=== PATIENT | male | born 1935 | race Caucasian/White ===

== ENCOUNTER 2017-08-31 13:17 | Observation (INO) | payer MEDICARE ==
[~2017-08-31] VITALS: Ht 172.7 cm; Wt 79.0 kg
[~2017-08-31 13:17] MED LIST: ACET325T PO; AMLO5 PO; ASPI-516 CHEW; CARB25TA9 PO; FAMO20TA2 PO; FOLI1TAB4 PO; LAMO25 PO; LIDO5DIS35 TD; LITH300C2 PO; METO25TA3 PO; MULTTAB67 PO; OLAN5TAB PO; PRAV10TA PO; SENN1TAB PO; TAMS5CAP PO; THIA100T PO
[2017-08-31 13:19] VITALS: BP 149/61; PULSE 86; RESP 14; TEMP 98; O2SAT 95
[2017-08-31] MEDS ORDERED: SODIUM CHLOR 0.9% 1000 ML INJ 1,000 ML IV SCH (13:41)
[2017-08-31 14:14] LABS: AUTOMATED NEUTROPHIL # 6.2 TH/MM3 (1.8-7.7); BASOPHIL % 0.4 % (0.0-2.0); EOSINOPHIL # 0.3 TH/MM3 (0-0.4); EOSINOPHIL % 3.1 % (0.0-4.0); HEMATOCRIT 38.6 % (39.0-51.0); HEMOGLOBIN 13.4 GM/DL (13.0-17.0); LYMPH % 18.6 % (9.0-44.0); LYMPHOCYTE # 1.6 TH/MM3 (1.0-4.8); MEAN CELL VOLUME 91.4 FL (80.0-100.0); MEAN CORPUSCULAR HEMOGLOBIN 31.7 PG (27.0-34.0); MEAN CORPUSCULAR HGB CONC 34.7 % (32.0-36.0); MEAN PLATELET VOLUME 7.5 FL (7.0-11.0); MONO % 6.2 % (0.0-8.0); MONOCYTE # 0.5 TH/MM3 (0-0.9); NEUT % 71.7 % (16.0-70.0); PLATELET COUNT 223 TH/MM3 (150-450); RED BLOOD COUNT 4.22 MIL/MM3 (4.50-5.90); RED CELL DISTRIBUTION WIDTH 12.5 % (11.6-17.2); WHITE BLOOD COUNT 8.7 TH/MM3 (4.0-11.0)
[2017-08-31 14:35] LABS: ALBUMIN 3.9 GM/DL (3.4-5.0); ALT (GPT) 23 U/L (12-78); AST (GOT) 9 U/L (15-37); BICARBONATE 25.4 MEQ/L (21.0-32.0); BLOOD UREA NITROGEN 32 MG/DL (7-18); CALCIUM 9.3 MG/DL (8.5-10.1); CHLORIDE 107 MEQ/L (98-107); CREATININE 2.19 MG/DL (0.60-1.30); GLOMERULAR FILTRATION RATE 29 ML/MIN (>89); GLUCOSE,RANDOM 119 MG/DL (74-106); LIPASE 240 U/L (73-393); SODIUM (NA) 138 MEQ/L (136-145)
[2017-08-31 14:38] LABS: ALKALINE PHOSPHATASE 62 U/L (45-117); TOTAL BILIRUBIN ADULT 0.5 MG/DL (0.2-1.0); TOTAL PROTEIN 7.7 GM/DL (6.4-8.2)
[2017-08-31] MEDS ORDERED: TRAZ50TA12 PO (14:39)
[2017-08-31] MEDS ORDERED: VALS1TAB70 PO (14:39)
[2017-08-31] MEDS ORDERED: OXYB5TAB8 PO (14:39)
[2017-08-31] MEDS ORDERED: MIRA50TA PO (14:39)
[2017-08-31] MEDS ORDERED: SODIUM CHLOR 0.9% 1000 ML INJ 1,000 ML IV ONE ×2 (14:45→16:45)
--- NOTE | 2017-08-31 14:59 | PD ---
HPI Chief Complaint: GI Complaint Time Seen by Provider: 13:32 Travel History International Travel<30 days: No Contact w/Intl Traveler<30days: No Traveled to known affect area: No History of Present Illness HPI 81-year-old male that presents to the ED for evaluation of diarrhea and tremors. Per patient she's had diarrhea and tremors Road 3 weeks now. Per patient nothing symptomatic for better. Per patient the diarrhea is liquidy and per patient he feels like every time he takes something it comes right up. Per patient he has had no nausea or vomiting. Some abdominal cramping when she has the diarrhea. Denies any blood. No changes in the stool coloration. No black stools. Takes no blood thinners. He does have a history of has head injury and a history of bipolar disease. Per patient his been having tremors though been worsening for the past 3 weeks. 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 When asked about this he does not seem to be aware of this. He states that the tremors are worse in the past couple days but he has had no head injuries. No other neurological deficits. No numbness, tingling, weakness. Per patient he dropped a cup which is what concerned him. He states that he was put on a new blood pressure medication that his kidney doctor but he cannot tell me what it is. Allergies to bupropion, chlorpromazine and clopidogrel. PFSH Past Medical History Arthritis: Yes Asthma: No Autoimmune Disease: No Blood Disorders: No Anxiety: No Depression: Yes Heart Rhythm Problems: No Cancer: No Cardiac Catheterization: Yes Cardiovascular Problems: Yes High Cholesterol: No Chemotherapy: No Chest Pain: No Congestive Heart Failure: No COPD: No Cerebrovascular Accident: No Diabetes: No Endocrine: No GERD: No Glaucoma: No Genitourinary: No Headaches: No Hiatal Hernia: No Hypertension: Yes Immune Disorder: No Kidney Stones: No Musculoskeletal: No Neurologic: Yes (memory, tremors) Psychiatric: Yes Reproductive: No Respiratory: No Migraines: No Myocardial Infarction: No Radiation Therapy: No Renal Failure: No Seizures: No Sickle Cell Disease: No Sleep Apnea: No Thyroid Disease: No Ulcer: No Influenza Vaccination: Yes LMP: na Past Surgical History Abdominal Surgery: No AICD: No Arteriovenous Shunt: No Cardiac Surgery: Yes (stents) Coronary Stent: Yes Ear Surgery: No Endocrine Surgery: No Eye Surgery: No Genitourinary Surgery: No Gynecologic Surgery: No Insulin Pump: No Joint Replacement: No Oral Surgery: No Pacemaker: No Thoracic Surgery: No Other Surgery: Yes (testical removed) Social History Alcohol Use: No Tobacco Use: No (8 CIGARETTES A DAY/ QUITTING) Substance Use: No Allergies-Medications (Allergen,Severity, Reaction): Coded Allergies: bupropion (Unverified Allergy, Severe, RASH, ITCHING, 08/31/17) chlorpromazine (Unverified Allergy, Severe, Rash, 08/31/17) clopidogrel (Verified Allergy, Unknown, 08/31/17) Reported Meds & Prescriptions Reported Meds & Active Scripts Active Flomax (Tamsulosin HCl) 0.4 Mg Cap 0.4 Mg PO DAILY Pravastatin 10 Mg Tab 1 Tab PO HS Multiple Vitamin 1 Tab 1 Tab PO DAILY [place] Carbonate 300 Mg Cap 300 Mg PO TID Aspirin 81 Mg Chew 81 Mg CHEW DAILY Reported Ditropan (Oxybutynin Chloride) 5 Mg Tab 5 Mg PO HS Myrbetriq (Mirabegron) 50 Mg Tab 50 Mg PO DAILY Valsartan 320 Mg Tab 320 Mg PO HS Trazodone (Trazodone HCl) 50 Mg Tab 100 Mg PO HS Review of Systems Except as stated in HPI: all other systems reviewed are Neg Physical Exam Narrative GENERAL: SKIN: Warm and dry. HEAD: Atraumatic. Normocephalic. EYES: Pupils equal and round. No scleral icterus. No injection or drainage. ENT: No nasal bleeding or discharge. Mucous membranes pink and moist. Tongue is midline. No uvula deviation. NECK: Trachea midline. No JVD. CARDIOVASCULAR: Regular rate and rhythm. No murmurs, S3, S4. RESPIRATORY: No accessory muscle use. Clear to auscultation. Breath sounds equal bilaterally. GASTROINTESTINAL: Abdomen soft, non-tender, nondistended. Hepatic and splenic margins not palpable. MUSCULOSKELETAL: Extremities without clubbing, cyanosis, or edema. No obvious deformities. Full range of motion of the upper and lower extremities bilaterally. 2+ pulses bilaterally. NEUROLOGICAL: Awake and alert. No obvious cranial nerve deficits. Motor grossly within normal limits. Five out of 5 muscle strength in the arms and legs. Normal speech. Mild tremor noted when patient raises his arms on the right compared to the left. PSYCHIATRIC: Appropriate mood and affect; insight and judgment normal. Data Data Last Documented VS Vital Signs Date Time Temp Pulse Resp B/P (MAP) Pulse Ox O2 Delivery O2 Flow Rate FiO2 08/31/17 17:06 68 18 138/72 (94) 98 Room Air 08/31/17 13:19 98.0 Orders Orders Complete Blood Count With Diff (08/31/17 13:41) Comprehensive Metabolic Panel (08/31/17 13:41) Lipase (08/31/17 13:41) Lactic Acid (08/31/17 13:41) Urinalysis - C+S If Indicated (08/31/17 13:41) Iv Access Insert/Monitor (08/31/17 13:41) Ecg Monitoring (08/31/17 13:41) Oximetry (08/31/17 13:41) Sodium Chlor 0.9% 1000 Ml Inj (Ns 1000 M (08/31/17 13:41) C Diff Toxin Pcr (08/31/17 14:19) Sodium Chlor 0.9% 1000 Ml Inj (Ns 1000 M (08/31/17 14:45) Sabin (Li) (08/31/17 14:42) Ct Abd/Pel W/O Iv Contrast (08/31/17 ) Sodium Chlor 0.9% 1000 Ml Inj (Ns 1000 M (08/31/17 16:45) Admit Order (Ed Use Only) (08/31/17 17:17) Thyroid Stimulating Hormone (08/31/17 17:18) Consult Nephrology (08/31/17 ) Labs Laboratory Tests Test 08/31/17 13:45 08/31/17 14:45 08/31/17 15:00 08/31/17 15:05 White Blood Count 8.7 TH/MM3 Red Blood Count 4.22 MIL/MM3 Hemoglobin 13.4 GM/DL Hematocrit 38.6 % Mean Corpuscular Volume 91.4 FL Mean Corpuscular Hemoglobin 31.7 PG Mean Corpuscular Hemoglobin Concent 34.7 % Red Cell Distribution Width 12.5 % Platelet Count 223 TH/MM3 Mean Platelet Volume 7.5 FL Neutrophils (%) (Auto) 71.7 % Lymphocytes (%) (Auto) 18.6 % Monocytes (%) (Auto) 6.2 % Eosinophils (%) (Auto) 3.1 % Basophils (%) (Auto) 0.4 % Neutrophils # (Auto) 6.2 TH/MM3 Lymphocytes # (Auto) 1.6 TH/MM3 Monocytes # (Auto) 0.5 TH/MM3 Eosinophils # (Auto) 0.3 TH/MM3 Basophils # (Auto) 0.0 TH/MM3 CBC Comment DIFF FINAL Differential Comment Blood Urea Nitrogen 32 MG/DL Creatinine 2.19 MG/DL Random Glucose 119 MG/DL Total Protein 7.7 GM/DL Albumin 3.9 GM/DL Calcium Level 9.3 MG/DL Alkaline Phosphatase 62 U/L Aspartate Amino Transf (AST/SGOT) 9 U/L Alanine Aminotransferase (ALT/SGPT) 23 U/L Total Bilirubin 0.5 MG/DL Sodium Level 138 MEQ/L Potassium Level 4.2 MEQ/L Chloride Level 107 MEQ/L Carbon Dioxide Level 25.4 MEQ/L Anion Gap 6 MEQ/L Estimat Glomerular Filtration Rate 29 ML/MIN Lipase 240 U/L Urine Color LIGHT-YELLOW Urine Turbidity CLEAR Urine pH 6.5 Urine Specific [place] 1.004 Urine Protein NEG mg/dL Urine Glucose (UA) NEG mg/dL Urine Ketones NEG mg/dL Urine Occult Blood NEG Urine Nitrite NEG Urine Bilirubin NEG Urine Urobilinogen LESS THAN 2.0 MG/DL Urine Leukocyte Esterase NEG Urine WBC 2 /hpf Microscopic Urinalysis Comment CULT NOT INDICATED [place] Level 1.8 MEQ/L MDM Medical Decision Making Medical Screen Exam Complete: Yes Emergency Medical Condition: Yes Medical Record Reviewed: Yes Interpretation(s) CBC & BMP Diagram 08/31/17 13:45 Total Protein 7.7, Albumin 3.9, Calcium Level 9.3, Alkaline Phosphatase 62, Aspartate Amino Transf (AST/SGOT) 9 L, Alanine Aminotransferase (ALT/SGPT) 23, Total Bilirubin 0.5 Last Impressions Abdomen/Pelvis CT 08/31/17 0000 Signed Impressions: Service Date/Time: Thursday, August 31, 2017 15:39 - CONCLUSION: 1. No evidence of acute abdominal or pelvic process. No masses are identified. 2. Cholelithiasis 3. Diverticulosis without evidence of diverticulitis. 1. Franc Gomez MD lithium level of 1.8 Differential Diagnosis Diarrhea versus electrolyte abnormality versus kidney injury versus dehydration versus medication side effect versus Parkinson's disease versus tremor Narrative Course 81-year-old male that presents to the ED for evaluation of diarrhea as well as tremor. Patient was properly examined and was found to have signs and symptoms of unclear etiology. Patient does tell me that he started new medication 3 weeks ago and is on the symptoms started. Diarrhea started first and tremor per patient started afterwards. The review the patient's medical records from or facility and he has had the tremor in the past. Patient apparently does take a lot of psychiatric medications secondary to his bipolar disorder and at the time the time he might have some early Parkinson's. Continue to take carbidopa levodopa. He is not aware he's ever been diagnosed with heart disease. Unclear if this is new or old. Patient is somewhat of a not a good historian he is able to move new medication he was put on. At this time we'll do labs and imaging. Patient was given IV fluids. We had the pharmacy technologist evaluated the patient to see if they can find no what the new medication is. Labs and imaging showed what appears to be elevated lithium level with what appears to be acute kidney injury likely from dehydration from the diarrhea. This was discussed in my attending Dr. Lane who was made aware of findings recommends consultation with slurry control operator helper and admission to medicine. Case was discussed with Dr. Plummer who says that for now hydration and will monitor. Does not recommend dialysis at this time. Dr. Young agreed to admission for FOR evaluation of this. I discussed the results with the patient and he completely denies doing suicidal attempt by taking lithium. Per patient his been taking the normal dose that he's had for 4 years. He was told however by that he may need to stop it secondary to his kidney function. He has not changed it since as he has not seen the psychiatrist to see what they can change it to. Again he denies any suicidal attempt. This appears to be accidental. Likely from dehydration from the diarrhea patient has been having for 3 weeks. Diagnosis Primary Impression: [place] toxicity Qualified Codes: T56.891A - Toxic effect of other metals, accidental ( unintentional), initial encounter Additional Impressions: Acute kidney injury Acute diarrhea Admitting Information Admitting Physician Requests: Observation Efrain Earl Aug 31, 2017 14:59
[2017-08-31 15:32] LABS: BILIRUBIN, URINE NEG (NEG); BLOOD, URINE NEG (NEG); GLUCOSE,URINE NEG (NEG); KETONE, URINE NEG (NEG); NITRITE,URINE NEG (NEG); PH, URINE 6.5 (5.0-8.5); URINE COLOR LIGHT-YELLOW (YELLW/STRAW); URINE LEUKOCYTE ESTERASE NEG (NEG)
--- NOTE | 2017-08-31 16:29 | RADRPT ---
EXAM DATE/TIME: 08/31/2017 15:39 [facility] COMPARISON: No previous studies available for comparison. INDICATIONS : Diarrhea, frequent urination. ORAL CONTRAST: No oral contrast ingested. RADIATION DOSE: 8.39 CTDIvol (mGy) MEDICAL HISTORY : Cardiovascular disease. Hypertension. SURGICAL HISTORY : None. ENCOUNTER: Initial ACUITY: 3 weeks PAIN SCALE: 2/10 LOCATION: Bilateral anterior TECHNIQUE: Volumetric scanning of the abdomen and pelvis was performed. Using automated exposure control and ad justment of the mA and/or kV according to patient size, radiation dose was kept as low as reasonably achievable to obtain optimal diagnostic quality images. DICOM format image data is available electro nically for review and comparison. FINDINGS: Examination of the lung bases demonstrates no abnormality. No pleural fluid is identified. No pulmona ry nodules are present. Coronary artery calcifications are present. The liver and spleen are normal i n size and no focal defects are identified. There is a single stone within the gallbladder without wa ll thickening or pericholecystic fluid measuring 2 mm. The pancreas demonstrates no evidence of mass and there is no dilatation of the pancreatic duct. The adrenal glands are unremarkable. There are sim ple cysts bilaterally the largest measuring 2 cm on the left. Examination of the pelvis demonstrates no evidence of free fluid or pelvic mass. No abnormally enlarg ed inguinal or retroperitoneal lymph nodes are present. The bladder is unremarkable. There is diverti culosis without evidence of diverticulitis. The prostate gland is moderately enlarged impinging on th e bladder base. CONCLUSION: 1. No evidence of acute abdominal or pelvic process. No masses are identified. 2. Cholelithiasis 3. Diverticulosis without evidence of diverticulitis. 1. Franc Gomez MD on August 31, 2017 at 16:24 Board Certified Radiologist. This report was verified electronically.
[2017-08-31 17:06] VITALS: BP 138/72; PULSE 57; PULSE 68; RESP 18; O2SAT 98
[2017-08-31] MEDS ORDERED: NALOXONE HCL 0.4 MG/ML AMP IV PUSH PRN (17:30)
[2017-08-31] MEDS ORDERED: ONDANSETRON HCL 4 MG/2 ML VIAL IVP PRN (17:30)
[2017-08-31] MEDS ORDERED: MAGNESIUM HYDROXIDE SUSP 30 ML CUP PO PRN (17:30)
[2017-08-31] MEDS ORDERED: SODIUM CHLORIDE 0.9% FLUSH 10 ML FLUSH IV FLUSH PRN (17:30)
[2017-08-31] MEDS ORDERED: LACTULOSE SYRUP 20 GM/30 ML CUP PO PRN (17:30)
[2017-08-31] MEDS ORDERED: SENNOSIDES 8.6 MG TAB PO PRN (17:30)
[2017-08-31] MEDS ORDERED: BISACODYL 10 MG SUPP RECTAL PRN (17:30)
[2017-08-31] MEDS ORDERED: ACETAMINOPHEN 325 MG TAB PO PRN (17:30)
--- NOTE | 2017-08-31 17:32 | PD.CONS ---
HPI Service Nephrology Consult Requested By Dr. Young Reason for Consult Review his emergency with lithium toxicity Primary Care Physician Parveen Kerr MD History of Present Illness Patient is a 81-year-old white male with history of bipolar disorder on lithium for past 40 years, he was seen by Dr. DIETZ who told him to get off lithium due to renal insufficiency however he has been on the same dose of lithium he states that he takes 300 mg 3 times a day, he developed diarrhea and increased tremors for the past few days and came to the emergency as he was feeling weak and tired, he was noted to have a lithium level of 1.8 he was given hydration his creatinine is 2.19 Review of Systems Constitutional: COMPLAINS OF: Fatigue Gastrointestinal: COMPLAINS OF: Diarrhea Neurologic: COMPLAINS OF: Tremor Psychiatric: COMPLAINS OF: Anxiety, Depression Past Family Social History Allergies: Coded Allergies: bupropion (Unverified Allergy, Severe, RASH, ITCHING, 08/31/17) chlorpromazine (Unverified Allergy, Severe, Rash, 08/31/17) clopidogrel (Verified Allergy, Unknown, 08/31/17) Past Medical History Chronic kidney disease Bipolar disorder on lithium Coronary artery disease status post stent History of smoking Hyperlipidemia Cataract Past Surgical History Coronary artery stent Testicle removed Reported Medications Reported Meds & Active Scripts Active Flomax (Tamsulosin HCl) 0.4 Mg Cap 0.4 Mg PO DAILY Pravastatin 10 Mg Tab 1 Tab PO HS Multiple Vitamin 1 Tab 1 Tab PO DAILY [place] Carbonate 300 Mg Cap 300 Mg PO TID Aspirin 81 Mg Chew 81 Mg CHEW DAILY Reported Ditropan (Oxybutynin Chloride) 5 Mg Tab 5 Mg PO HS Myrbetriq (Mirabegron) 50 Mg Tab 50 Mg PO DAILY Valsartan 320 Mg Tab 320 Mg PO HS Trazodone (Trazodone HCl) 50 Mg Tab 100 Mg PO HS Active Ordered Medications Current Medications Medications (Trade) Dose Ordered Sig/Lavinia Route Start Time Stop Time Status Last Admin (Aspirin Chew) 81 mg DAILY CHEW 09/01/17 09:00 (Ditropan) 5 mg HS PO 08/31/17 21:00 (Pravachol) 10 mg HS PO 08/31/17 21:00 (Flomax) 0.4 mg DAILY PO 09/01/17 09:00 (Desyrel) 100 mg HS PO 08/31/17 21:00 UNV (Diovan) 320 mg HS PO 08/31/17 21:00 UNV Non-Formulary Medication 50 mg DAILY PO 09/01/17 09:00 UNV Sodium Chloride 1,000 ml @ 100 mls/hr Q10H IV 08/31/17 17:30 (NS Flush) 2 ml UNSCH PRN IV FLUSH 08/31/17 17:30 (NS Flush) 2 ml BID IV FLUSH 08/31/17 21:00 (Tylenol) 650 mg Q4H PRN PO 08/31/17 17:30 (Zofran Inj) 4 mg Q6H PRN IVP 08/31/17 17:30 (Heparin Inj) 5,000 units Q12H SQ 08/31/17 21:00 (Narcan Inj) 0.4 mg UNSCH PRN IV PUSH 08/31/17 17:30 ([place]-Colace) 1 tab BID PO 08/31/17 21:00 (Milk Of Magnesia Liq) 30 ml Q12H PRN PO 08/31/17 17:30 (Senokot) 17.2 mg Q12H PRN PO 08/31/17 17:30 (Dulcolax Supp) 10 mg DAILY PRN RECTAL 08/31/17 17:30 (Lactulose Liq) 30 ml DAILY PRN PO 08/31/17 17:30 Family History Noncontributory Social History He smoked up to 8 cigarettes a day Physical Exam Vital Signs Vital Signs Date Time Temp Pulse Resp B/P (MAP) Pulse Ox O2 Delivery O2 Flow Rate FiO2 08/31/17 17:06 68 18 138/72 (94) 98 Room Air 08/31/17 13:19 98.0 86 14 149/61 (90) 95 Room Air Physical Exam GENERAL: Well-nourished, well-developed patient. SKIN: Warm and dry. HEAD: Normocephalic. EYES: No scleral icterus. No injection or drainage. NECK: Supple, trachea midline. No JVD or lymphadenopathy. CARDIOVASCULAR: Regular rate and rhythm without murmurs, gallops, or rubs. RESPIRATORY: Breath sounds equal bilaterally. No accessory muscle use. GASTROINTESTINAL: Abdomen soft, non-tender, nondistended. EXTREMITIES: No cyanosis, or edema. NEUROLOGICAL: Awake, alert, and oriented x 3. Non-focal. Laboratory Laboratory Tests Test 08/31/17 13:45 08/31/17 14:45 08/31/17 15:00 08/31/17 15:05 White Blood Count 8.7 Red Blood Count 4.22 Hemoglobin 13.4 Hematocrit 38.6 Mean Corpuscular Volume 91.4 Mean Corpuscular Hemoglobin 31.7 Mean Corpuscular Hemoglobin Concent 34.7 Red Cell Distribution Width 12.5 Platelet Count 223 Mean Platelet Volume 7.5 Neutrophils (%) (Auto) 71.7 Lymphocytes (%) (Auto) 18.6 Monocytes (%) (Auto) 6.2 Eosinophils (%) (Auto) 3.1 Basophils (%) (Auto) 0.4 Neutrophils # (Auto) 6.2 Lymphocytes # (Auto) 1.6 Monocytes # (Auto) 0.5 Eosinophils # (Auto) 0.3 Basophils # (Auto) 0.0 CBC Comment DIFF FINAL Differential Comment Blood Urea Nitrogen 32 Creatinine 2.19 Random Glucose 119 Total Protein 7.7 Albumin 3.9 Calcium Level 9.3 Alkaline Phosphatase 62 Aspartate Amino Transf (AST/SGOT) 9 Alanine Aminotransferase (ALT/SGPT) 23 Total Bilirubin 0.5 Sodium Level 138 Potassium Level 4.2 Chloride Level 107 Carbon Dioxide Level 25.4 Anion Gap 6 Estimat Glomerular Filtration Rate 29 Lipase 240 Urine Color LIGHT-YELLOW Urine Turbidity CLEAR Urine pH 6.5 Urine Specific [place] 1.004 Urine Protein NEG Urine Glucose (UA) NEG Urine Ketones NEG Urine Occult Blood NEG Urine Nitrite NEG Urine Bilirubin NEG Urine Urobilinogen LESS THAN 2.0 Urine Leukocyte Esterase NEG Urine WBC 2 Microscopic Urinalysis Comment CULT NOT INDICATED [place] Level 1.8 Result Diagram: 08/31/17 1345 08/31/17 1345 Assessment and Plan Problem List: (1) [place] toxicity ICD Codes: T56.891A - Toxic effect of other metals, accidental (unintentional) , initial encounter Status: Acute Plan: This is mild toxicity and is already resolving with hydration patient is feeling better Patient has no indication for dialysis Continue supportive care I told the patient to consider switching his lithium and I agree with Dr. DIETZ recommendations (2) Acute kidney injury ICD Codes: N17.9 - Acute kidney failure, unspecified Status: Acute Plan: Patient appears to have chronic kidney disease and follows with Dr. DIETZ He was told to stop taking lithium At this point continue supportive care He is feeling better with hydration Discharge planning per primary care team Problem Qualifiers (1) [place] toxicity: Qualified Codes: T56.891A - Toxic effect of other metals, accidental ( unintentional), initial encounter Stefanie Jo MD Aug 31, 2017 17:32
--- NOTE | 2017-08-31 18:32 | HHI.HP ---
[facility] Parveen Kerr MD Admission Diagnosis acute lithium toxicity, acute kidney injury, diarrhea Diagnoses: Chief Complaint: generalized weakness, diarrhea, "shakes" Travel History International Travel<30 Days: No Contact w/Intl Traveler <30 Da: No Traveled to Known Affected Are: No History of Present Illness Written by Fatuma Slaughter, acting as scribe for Dr. Young on 08/31/17 at 18:19. Patient is a 81-year-old male with primary medical history of HTN, bipolar disorder, CAD with stents, HTN, EtOH abuse, HLD who came in to the hospital secondary to complaints of generalized weakness, increasing "shakes," diarrhea 3 weeks. Patient states that he's been having diarrhea for 3 weeks and has been generally weak. States that he has been taking his lithium as prescribed without any additional doses. Denies any intentional overdose or accidental overdose. Reports last lithium level checked was when he was at [facility] last year in May. He hasn't seen a doctor recently but follows with PCP, nephrology, [facility]. Patient states that he is very weak, having diarrhea 5 times a day. Denies nausea, vomiting. No shortness of breath, dyspnea. Denies chest pain, headaches, dizziness, palpitations. Denies any fevers, chills. Denies SI/HI. Review of Systems Except as stated in HPI: all other systems reviewed are Neg Past Family Social History Past Medical History HTN HLD BPH Bipolar disorder CAD EtOH abuse Past Surgical History Stent placements Tonsillectomy Vasectomy Reported Medications Reported Meds & Active Scripts Active Flomax (Tamsulosin HCl) 0.4 Mg Cap 0.4 Mg PO DAILY Pravastatin 10 Mg Tab 1 Tab PO HS Multiple Vitamin 1 Tab 1 Tab PO DAILY [place] Carbonate 300 Mg Cap 300 Mg PO TID Aspirin 81 Mg Chew 81 Mg CHEW DAILY Reported Ditropan (Oxybutynin Chloride) 5 Mg Tab 5 Mg PO HS Myrbetriq (Mirabegron) 50 Mg Tab 50 Mg PO DAILY Valsartan 320 Mg Tab 320 Mg PO HS Trazodone (Trazodone HCl) 50 Mg Tab 100 Mg PO HS Allergies: Coded Allergies: bupropion (Unverified Allergy, Severe, RASH, ITCHING, 08/31/17) chlorpromazine (Unverified Allergy, Severe, Rash, 08/31/17) clopidogrel (Verified Allergy, Unknown, 08/31/17) Active Ordered Medications Current Medications Medications (Trade) Dose Ordered Sig/Lavinia Route Start Time Stop Time Status Last Admin (Aspirin Chew) 81 mg DAILY CHEW 09/01/17 09:00 (Ditropan) 5 mg HS PO 08/31/17 21:00 (Pravachol) 10 mg HS PO 08/31/17 21:00 (Flomax) 0.4 mg DAILY PO 09/01/17 09:00 (Desyrel) 100 mg HS PO 08/31/17 21:00 (Diovan) 320 mg HS PO 08/31/17 21:00 Patient Own Medication PT OWN MED:MYRBETRIQ 50MG DAILY PO 09/01/17 09:00 Future Hold Sodium Chloride 1,000 ml @ 100 mls/hr Q10H IV 08/31/17 17:30 (NS Flush) 2 ml UNSCH PRN IV FLUSH 08/31/17 17:30 (NS Flush) 2 ml BID IV FLUSH 08/31/17 21:00 (Tylenol) 650 mg Q4H PRN PO 08/31/17 17:30 (Zofran Inj) 4 mg Q6H PRN IVP 08/31/17 17:30 (Heparin Inj) 5,000 units Q12H SQ 08/31/17 21:00 (Narcan Inj) 0.4 mg UNSCH PRN IV PUSH 08/31/17 17:30 ([place]-Colace) 1 tab BID PO 08/31/17 21:00 (Milk Of Magnesia Liq) 30 ml Q12H PRN PO 08/31/17 17:30 (Senokot) 17.2 mg Q12H PRN PO 08/31/17 17:30 (Dulcolax Supp) 10 mg DAILY PRN RECTAL 08/31/17 17:30 (Lactulose Liq) 30 ml DAILY PRN PO 08/31/17 17:30 Family History Father has diabetes No CVA or CAD in the family Social History Denies alcohol use Former smoker, 3 pack per day 30 years, quit 1990 Denies illicit drug use Physical Exam Vital Signs Vital Signs Date Time Temp Pulse Resp B/P (MAP) Pulse Ox O2 Delivery O2 Flow Rate FiO2 08/31/17 17:06 68 18 138/72 (94) 98 Room Air 08/31/17 13:19 98.0 86 14 149/61 (90) 95 Room Air Physical Exam GENERAL: This is a well-nourished, well-developed patient, in no apparent distress. SKIN: Warm and dry. HEAD: Normocephalic. EYES: Pupils equal round and reactive. Extraocular motions intact. No scleral icterus. No injection or drainage. ENT: Nose without bleeding. Throat without erythema. Uvula midline. Airway patent. NECK: Trachea midline. No JVD or lymphadenopathy. Supple, nontender, no meningeal signs. CARDIOVASCULAR: Regular rate and rhythm without murmurs, gallops, or rubs. RESPIRATORY: Clear to auscultation. Breath sounds equal bilaterally. No wheezes , rales, or rhonchi. GASTROINTESTINAL: Abdomen soft, non-tender, nondistended. No guarding. Bowel sounds active 4. MUSCULOSKELETAL: Extremities without clubbing, cyanosis, or edema. Tremors noted. NEUROLOGICAL: Awake and alert. Cranial nerves II through XII intact. Motor and sensory grossly within normal limits. Normal speech. Laboratory Laboratory Tests Test 08/31/17 13:45 08/31/17 14:45 08/31/17 15:00 08/31/17 15:05 White Blood Count 8.7 Red Blood Count 4.22 Hemoglobin 13.4 Hematocrit 38.6 Mean Corpuscular Volume 91.4 Mean Corpuscular Hemoglobin 31.7 Mean Corpuscular Hemoglobin Concent 34.7 Red Cell Distribution Width 12.5 Platelet Count 223 Mean Platelet Volume 7.5 Neutrophils (%) (Auto) 71.7 Lymphocytes (%) (Auto) 18.6 Monocytes (%) (Auto) 6.2 Eosinophils (%) (Auto) 3.1 Basophils (%) (Auto) 0.4 Neutrophils # (Auto) 6.2 Lymphocytes # (Auto) 1.6 Monocytes # (Auto) 0.5 Eosinophils # (Auto) 0.3 Basophils # (Auto) 0.0 CBC Comment DIFF FINAL Differential Comment Blood Urea Nitrogen 32 Creatinine 2.19 Random Glucose 119 Total Protein 7.7 Albumin 3.9 Calcium Level 9.3 Alkaline Phosphatase 62 Aspartate Amino Transf (AST/SGOT) 9 Alanine Aminotransferase (ALT/SGPT) 23 Total Bilirubin 0.5 Sodium Level 138 Potassium Level 4.2 Chloride Level 107 Carbon Dioxide Level 25.4 Anion Gap 6 Estimat Glomerular Filtration Rate 29 Lipase 240 Thyroid Stimulating Hormone 3rd Gen 1.940 Urine Color LIGHT-YELLOW Urine Turbidity CLEAR Urine pH 6.5 Urine Specific [place] 1.004 Urine Protein NEG Urine Glucose (UA) NEG Urine Ketones NEG Urine Occult Blood NEG Urine Nitrite NEG Urine Bilirubin NEG Urine Urobilinogen LESS THAN 2.0 Urine Leukocyte Esterase NEG Urine WBC 2 Microscopic Urinalysis Comment CULT NOT INDICATED Orange Level 1.8 Result Diagram: 08/31/17 1345 08/31/17 1345 Imaging Last Impressions Abdomen/Pelvis CT 08/31/17 0000 Signed Impressions: Service Date/Time: Thursday, August 31, 2017 15:39 - CONCLUSION: 1. No evidence of acute abdominal or pelvic process. No masses are identified. 2. Cholelithiasis 3. Diverticulosis without evidence of diverticulitis. 1. MD Jolene Granados VTE Risk Assessment Caprini VTE Risk Assessment: Mod/High Risk (score >= 2) Caprini Risk Assessment Model Point Value = 1 Point Value = 2 Point Value = 3 Point Value = 5 Age 41-60 Minor surgery BMI > 25 kg/m2 Swollen legs Varicose veins or History of unexplained or recurrent spontaneous Oral contraceptives or hormone replacement Sepsis (< 1 month) Serious lung disease, including pneumonia (< 1 month) Abnormal pulmonary function Acute myocardial infarction Congestive heart failure (< 1 month) History of inflammatory bowel disease Medical patient at bed rest Age 61-74 Arthroscopic surgery Major open surgery (> 45 min) Laparoscopic surgery (> 45 min) Malignancy Confined to bed (> 72 hours) Immobilizing plaster cast Central venous access Age >= 75 History of VTE Family history of VTE Factor V Leiden Prothrombin [id number] Lupus anticoagulant Anticardiolipin antibodies Elevated serum homocysteine Heparin-induced thrombocytopenia Other congenital or acquired thrombophilia Stroke (< 1 month) Elective arthroplasty Hip, pelvis, or leg fracture Acute spinal cord injury (< 1 month) Prophylaxis Regimen Total Risk Factor Score Risk Level Prophylaxis Regimen 0-1 Low Early ambulation 2 Moderate Order ONE of the following: *Sequential Compression Device (SCD) *Heparin 5000 units SQ BID 3-4 Higher Order ONE of the following medications: *Heparin 5000 units SQ TID *Enoxaparin/Lovenox 40 mg SQ daily (WT < 150 kg, CrCl > 30 mL/min) *Enoxaparin/Lovenox 30 mg SQ daily (WT < 150 kg, CrCl > 10-29 mL/min) *Enoxaparin/Lovenox 30 mg SQ BID (WT < 150 kg, CrCl > 30 mL/min) AND/OR *Sequential Compression Device (SCD) 5 or more Highest Order ONE of the following medications: *Heparin 5000 units SQ TID (Preferred with Epidurals) *Enoxaparin/Lovenox 40 mg SQ daily (WT < 150 kg, CrCl > 30 mL/min) *Enoxaparin/Lovenox 30 mg SQ daily (WT < 150 kg, CrCl > 10-29 mL/min) *Enoxaparin/Lovenox 30 mg SQ BID (WT < 150 kg, CrCl > 30 mL/min) AND *Sequential Compression Device (SCD) Assessment and Plan Problem List: (1) [place] toxicity ICD Code: T56.891A - Toxic effect of other metals, accidental (unintentional), initial encounter Status: Acute (2) Acute kidney injury ICD Code: N17.9 - Acute kidney failure, unspecified Status: Acute (3) Acute diarrhea ICD Code: R19.7 - Diarrhea, unspecified Status: Acute (4) Depression ICD Code: F32.9 - Major depressive disorder, single episode, unspecified Status: Chronic (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 Status: Acute (6) Bipolar disorder ICD Code: F31.9 - Bipolar disorder, unspecified Status: Chronic (7) Hyperlipemia ICD Code: E78.5 - Hyperlipidemia, unspecified Status: Chronic (8) Hypertension ICD Code: I10 - Essential (primary) hypertension Status: Chronic (9) Coronary artery disease ICD Code: I25.10 - Atherosclerotic heart disease of [place] coronary artery without angina pectoris Status: Chronic Assessment and Plan Patient is a 81-year-old male with primary medical history of HTN, bipolar disorder, CAD with stents, HTN, EtOH abuse, HLD who came in to the hospital secondary to complaints of generalized weakness, increasing "shakes," diarrhea 3 weeks. Orange toxicity - Orange level 1.8 - Hold off lithium for now - Recheck levels - Scheduled with patient's signs and symptoms of lithium toxicity. Acute kidney injury - Secondary to diarrhea, lithium toxicity - IV fluids for hydration - Avoid nephrotoxins - Nephrology consulted for further evaluation and recommendation. Acute diarrhea - Possibly related to lithium toxicity - Monitor electrolytes. Check stool for C. difficile. Bipolar disorder Depression - Will consult psychiatry - Hold off lithium for now - Continue trazodone for now HTN, hx HLD History of CAD - Continue home medication ASA 81 mg, pravastatin 10 mg daily, valsartan 320 mg - Monitor BP trend BPH Overactive bladder - Continue Flomax, Ditropan DVT prop heparin This note was transcribed by RAJAN Salazar. I, Dr. Nehal Young personally performed the history, physical exam, and medical decision making; and confirmed the accuracy of the information in the transcribed note. Authenticated by Dr. Nehal Young on 08/31/17 at 18:19. Code Status Full code Discussed Condition With Patient, sons, nursing, ED attending Physician Certification 2 Midnight Certification Type: Admission for Inpatient Services Order for Inpatient Services The services are ordered in accordance with Medicare regulations or non- Medicare payer requirements, as applicable. In the case of services not specified as inpatient-only, they are appropriately provided as inpatient services in accordance with the 2-midnight benchmark. Estimated LOS (days): 2 days is the estimated time the patient will need to remain in the hospital, assuming treatment plan goals are met and no additional complications. Post-Hospital Plan: Home Problem Qualifiers (1) [place] toxicity: Qualified Codes: T56.891A - Toxic effect of other metals, accidental ( unintentional), initial encounter Fatuma Roldan Aug 31, 2017 18:32 Nehal Young MD Aug 31, 2017 19:40
[2017-08-31 20:20] VITALS: BP 134/64; PULSE 59; RESP 20; TEMP 96.6; O2SAT 98
[2017-08-31] MEDS: DOCUSATE SODIUM 50 MG/SENNA 8.6 MG TAB PO SCH (20:59)
[2017-08-31] MEDS ORDERED: traZODone HCL 100 MG TAB PO SCH (21:00)
[2017-08-31] MEDS ORDERED: OXYBUTYNIN CHLORIDE 5 MG TAB PO SCH (21:00)
[2017-08-31] MEDS ORDERED: SODIUM CHLORIDE 0.9% FLUSH 10 ML FLUSH IV FLUSH SCH (21:00)
[2017-08-31] MEDS ORDERED: VALSARTAN 160 MG TAB PO SCH (21:00)
[2017-08-31] MEDS: HEPARIN SODIUM - SQ 10,000 UNITS/ML VIAL SQ SCH (21:00)
[2017-08-31] MEDS ORDERED: PRAVASTATIN SOD 10 MG TAB PO SCH (21:00)
[2017-08-31] MEDS: SODIUM CHLOR 0.9% 1000 ML INJ 1,000 ML IV SCH (21:01)
[2017-08-31 21:41] VITALS: O2SAT 97
[2017-08-31 22:22] LABS: ALBUMIN 3.6 GM/DL (3.4-5.0); ALT (GPT) 19 U/L (12-78); AST (GOT) 9 U/L (15-37); BICARBONATE 28.1 MEQ/L (21.0-32.0); BLOOD UREA NITROGEN 25 MG/DL (7-18); CHLORIDE 113 MEQ/L (98-107); CREATININE 1.81 MG/DL (0.60-1.30); GLOMERULAR FILTRATION RATE 36 ML/MIN (>89); GLUCOSE,RANDOM 101 MG/DL (74-106); SODIUM (NA) 144 MEQ/L (136-145)
[2017-08-31 22:25] LABS: ALKALINE PHOSPHATASE 56 U/L (45-117); TOTAL BILIRUBIN ADULT 0.5 MG/DL (0.2-1.0); TOTAL PROTEIN 6.7 GM/DL (6.4-8.2)
[2017-09-01 00:11] VITALS: BP 134/60; PULSE 54; RESP 20; TEMP 97.8; O2SAT 99
[2017-09-01] MEDS: SODIUM CHLOR 0.9% 1000 ML INJ 1,000 ML IV SCH (03:30)
[2017-09-01 05:07] VITALS: BP 138/63; PULSE 54; RESP 20; TEMP 97.9; O2SAT 98
[2017-09-01 05:55] LABS: AUTOMATED NEUTROPHIL # 5.9 TH/MM3 (1.8-7.7); BASOPHIL % 0.5 % (0.0-2.0); EOSINOPHIL # 0.3 TH/MM3 (0-0.4); EOSINOPHIL % 3.6 % (0.0-4.0); HEMATOCRIT 35.9 % (39.0-51.0); HEMOGLOBIN 12.2 GM/DL (13.0-17.0); LYMPH % 25.4 % (9.0-44.0); LYMPHOCYTE # 2.3 TH/MM3 (1.0-4.8); MEAN CELL VOLUME 92.5 FL (80.0-100.0); MEAN CORPUSCULAR HEMOGLOBIN 31.5 PG (27.0-34.0); MEAN PLATELET VOLUME 7.6 FL (7.0-11.0); MONO % 6.5 % (0.0-8.0); MONOCYTE # 0.6 TH/MM3 (0-0.9); PLATELET COUNT 193 TH/MM3 (150-450); RED BLOOD COUNT 3.88 MIL/MM3 (4.50-5.90); RED CELL DISTRIBUTION WIDTH 12.8 % (11.6-17.2); WHITE BLOOD COUNT 9.2 TH/MM3 (4.0-11.0)
[2017-09-01 06:18] LABS: BICARBONATE 24.5 MEQ/L (21.0-32.0); CALCIUM 9.2 MG/DL (8.5-10.1); CREATININE 1.75 MG/DL (0.60-1.30)
[2017-09-01 08:07] VITALS: BP 120/59; PULSE 52; RESP 18; TEMP 97.4; O2SAT 98
[2017-09-01] MEDS ORDERED: ASPIRIN 81 MG CHEW TAB CHEW SCH (09:00)
[2017-09-01] MEDS ORDERED: MYRBETRIQ 50 MG PO SCH (09:00)
[2017-09-01] MEDS ORDERED: TAMSULOSIN HCL 0.4 MG CAP PO SCH (09:00)
[2017-09-01] MEDS: DOCUSATE SODIUM 50 MG/SENNA 8.6 MG TAB PO SCH (09:00)
[2017-09-01] MEDS: HEPARIN SODIUM - SQ 10,000 UNITS/ML VIAL SQ SCH (09:33)
--- NOTE | 2017-09-01 10:07 | HHI.PR ---
Subjective Remarks in no acute distress. awake, alert and oriented. no abdominal pain, nausea or vomiting. Objective Vitals Vital Signs Date Time Temp Pulse Resp B/P (MAP) Pulse Ox O2 Delivery O2 Flow Rate FiO2 09/01/17 08:07 97.4 52 18 120/59 (79) 98 09/01/17 05:07 97.9 54 20 138/63 (88) 98 09/01/17 00:11 97.8 54 20 134/60 (84) 99 08/31/17 21:41 97 08/31/17 20:20 96.6 59 20 134/64 (87) 98 08/31/17 18:35 100 08/31/17 17:06 68 18 138/72 (94) 98 Room Air 08/31/17 13:19 98.0 86 14 149/61 (90) 95 Room Air I/O 08/31/17 08/31/17 08/31/17 09/01/17 09/01/17 09/01/17 07:00 15:00 23:00 07:00 15:00 23:00 Intake Total 3000 ml Balance 3000 ml Intake IV Total 3000 ml # Voids 5 # Bowel Movements 1 2 Result Diagram: 09/01/17 0529 09/01/17 0529 Imaging Last Impressions Abdomen/Pelvis CT 08/31/17 0000 Signed Impressions: Service Date/Time: Thursday, August 31, 2017 15:39 - CONCLUSION: 1. No evidence of acute abdominal or pelvic process. No masses are identified. 2. Cholelithiasis 3. Diverticulosis without evidence of diverticulitis. 1. Franc Gomez MD Objective Remarks GENERAL: This is a well-nourished, well-developed patient, in no apparent distress. CARDIOVASCULAR: Regular rate and regular rhythm without murmurs, gallops, or rubs. RESPIRATORY: Clear to auscultation. Breath sounds equal bilaterally. No wheezes , rales, or rhonchi. GASTROINTESTINAL: Abdomen soft, non-tender, nondistended. Normal, active bowel sounds MUSCULOSKELETAL: Extremities without clubbing, cyanosis, or edema. NEURO: Alert & Oriented x4 to person, place, time, situation. Moves all ext x4 Medications and IVs Inpatient Medications Acetaminophen (Tylenol) 650 mg Q4H PRN PO TEMP > 100.4; Start 08/31/17 at 17:30 Aspirin (Aspirin Chew) 81 mg DAILY CHEW Last administered on 09/01/17at 09:34; Start 09/01/17 at 09:00 Bisacodyl (Dulcolax Supp) 10 mg DAILY PRN RECTAL SEVERE CONSITIPATION; Start at 17:30 Heparin Sodium (Porcine) (Heparin Inj) 5,000 units Q12H SQ Last administered on 09/01/17at 09:33; Start 08/31/17 at 21:00 Lactulose (Lactulose Liq) 30 ml DAILY PRN PO SEVERE CONSITIPATION; Start at 17:30 Magnesium Hydroxide (Milk Of Magnesia Liq) 30 ml Q12H PRN PO Mild constipation ; Start 08/31/17 at 17:30 Naloxone HCl (Narcan Inj) 0.4 mg UNSCH PRN IV PUSH SEE LABEL COMMENTS; Start at 17:30 Ondansetron HCl (Zofran Inj) 4 mg Q6H PRN IVP NAUSEA OR VOMITING; Start at 17:30 Oxybutynin Chloride (Ditropan) 5 mg HS PO Last administered on 08/31/17at 21:00; Start 08/31/17 at 21:00 Patient Own Medication PT OWN MED:MYRBETRIQ 50MG DAILY PO ; Start 09/01/17 at 09: 00; Status Future Hold Pravastatin Sodium (Pravachol) 10 mg HS PO Last administered on 08/31/17at 20:59 ; Start 08/31/17 at 21:00 Senna/Docusate Sodium ([place]-Colace) 1 tab BID PO Last administered on 08/31/17at 20:59; Start 08/31/17 at 21:00 Sennosides (Senokot) 17.2 mg Q12H PRN PO Moderate constipation; Start 08/31/17 at 17:30 Sodium Chloride (NS Flush) 2 ml BID IV FLUSH Last administered on 08/31/17at 21: 00; Start 08/31/17 at 21:00 Tamsulosin HCl (Flomax) 0.4 mg DAILY PO Last administered on 09/01/17at 09:32; Start 09/01/17 at 09:00 Trazodone HCl (Desyrel) 100 mg HS PO Last administered on 08/31/17at 20:59; Start 08/31/17 at 21:00 Valsartan (Diovan) 320 mg HS PO Last administered on 08/31/17at 20:59; Start 08/31 at 21:00 A/P Problem List: (1) [place] toxicity ICD Code: T56.891A - Toxic effect of other metals, accidental (unintentional), initial encounter Status: Acute (2) Acute kidney injury ICD Code: N17.9 - Acute kidney failure, unspecified Status: Acute (3) Acute diarrhea ICD Code: R19.7 - Diarrhea, unspecified Status: Acute (4) Depression ICD Code: F32.9 - Major depressive disorder, single episode, unspecified Status: Chronic (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 - Hold off lithium for now -advised to have a f/u with his psychiatrist. Acute kidney injury- improved. - Secondary to diarrhea, lithium toxicity - Avoid nephrotoxins - Nephrology consult appreciated. Acute diarrhea- resolved. - Possibly related to lithium toxicity Bipolar disorder Depression - Hold off lithium for now - Continue trazodone for now -psychiatry f/u as outpatient. HTN, hx HLD History of CAD - Continue home medication ASA 81 mg, pravastatin 10 mg daily, valsartan 320 mg - Monitor BP trend BPH Overactive bladder - Continue Flomax, Ditropan DVT prop heparin Discharge Planning dc home today with f/u with his pcp and psychiatry. f/u with his nephrology. Problem Qualifiers (1) [place] toxicity: Qualified Codes: T56.891A - Toxic effect of other metals, accidental ( unintentional), initial encounter James Sen MD Sep 01, 2017 10:07
[2017-09-01] MEDS ORDERED: LITH300C2 PO (10:42)
--- NOTE | 2017-09-01 10:43 | HHI.DCPOC ---
Discharge Care Plan Diagnosis: (1) [place] toxicity (2) Acute kidney injury (3) Acute diarrhea Goals to Promote Your Health * To prevent worsening of your condition and complications * To maintain your health at the optimal level Directions to Meet Your Goals PLEASE DO NOT RESUME TAKING LITHIUM MEDICATION UNTIL YOU ARE EVALUATED BY YOUR NEUROLOGIST Take your medications as prescribed Follow your dietary instruction Follow activity as directed Keep your appointments as scheduled Take your immunizations and boosters as scheduled If your symptoms worsen call your PCP, if no PCP go to Urgent Care Center or Emergency Room Smoking is Dangerous to Your Health. Avoid second hand smoke Call the 24-hour hour crisis hotline for domestic abuse at Marley Baldwin Sep 01, 2017 10:43
== END 2017-09-01 12:52 | disposition home or self-care (01) ==
LOC: NEPC 13:17 → NEDA 17:19 → NEPGCP 18:45
PROVIDERS: ADMIT Internal Medicine; ATTEND Internal Medicine
DX: T56.891A Toxic effect of other metals, accidental (unintentional), initial encounter (principal); N17.9 Acute kidney failure, unspecified; R19.7 Diarrhea, unspecified; N18.9 Chronic kidney disease, unspecified; I12.9 Hypertensive chronic kidney disease with stage 1 through stage 4 chronic kidney disease, or unspecified chronic kidney disease; F31.9 Bipolar disorder, unspecified; I25.10 Atherosclerotic heart disease of native coronary artery without angina pectoris; Z95.5 Presence of coronary angioplasty implant and graft; E78.5 Hyperlipidemia, unspecified; Z79.899 Other long term (current) drug therapy; F17.210 Nicotine dependence, cigarettes, uncomplicated; F10.10 Alcohol abuse, uncomplicated; N40.0 Benign prostatic hyperplasia without lower urinary tract symptoms; G21.19 Other drug induced secondary parkinsonism; N32.81 Overactive bladder; K57.90 Diverticulosis of intestine, part unspecified, without perforation or abscess without bleeding; E86.0 Dehydration
CPT/HCPCS: 74176; 80048; 80053; 80178; 81001; 83605; 83690; 84443; 85025; 87493; 96360; 96361; 96372; 97163; 99285; G0378; G8987; G8988; J1644; J7030

== ENCOUNTER 2017-09-19 12:51 | Inpatient (IN) | payer MEDICARE ==
[~2017-09-19] VITALS: Ht 172.7 cm; Wt 71.4 kg
[~2017-09-19 12:51] MED LIST changes: -ACET325T PO; -AMLO5 PO; -CARB25TA9 PO; -FAMO20TA2 PO; -FOLI1TAB4 PO; -LAMO25 PO; -LIDO5DIS35 TD; -METO25TA3 PO; +MIRA50TA PO; -OLAN5TAB PO; +OXYB5TAB8 PO; -SENN1TAB PO; -THIA100T PO; +TRAZ50TA12 PO; +VALS1TAB70 PO
[2017-09-19 13:17] VITALS: BP 94/48; PULSE 56; RESP 20; TEMP 97.8; O2SAT 97
--- NOTE | 2017-09-19 14:01 | PD ---
HPI Chief Complaint: Dizziness Time Seen by Provider: 13:07 Travel History International Travel<30 days: No Contact w/Intl Traveler<30days: No Traveled to known affect area: No History of Present Illness HPI This is a 81-year-old male with a history of bipolar disease, who presents today with complaints of altered mental status and weakness and ataxia. Son is at bedside states they were just at his psychiatrist's office and was told that his lithium level was toxic. They initially told the son to take him home and make sure he drink plenty of fluids and he would re-see him in the office next Saturday. Son states that his father is so weak and ataxic that he could not take him home. Son also reports that he has not been drinking enough fluid. He reports he is eating well. There are no recent medication changes. Son also reports that there was no report of which medication they would restart him on. History Past Medical History Tetanus Vaccination: < 5 Years Influenza Vaccination: Yes Social History Alcohol Use: No Tobacco Use: No (8 CIGARETTES A DAY/ QUITTING) Allergies-Medications (Allergen,Severity, Reaction): Coded Allergies: bupropion (Unverified Allergy, Severe, RASH, ITCHING, 09/19/17) chlorpromazine (Unverified Allergy, Severe, Rash, 09/19/17) clopidogrel (Verified Allergy, Unknown, 09/19/17) Reported Meds & Prescriptions Reported Meds & Active Scripts Active [place] Carbonate 300 Mg Cap 300 Mg PO TID PLEASE DO NOT RESUME LITHIUM MEDICATION UNTIL EVALUATED BY YOUR NEUROLOGIST Flomax (Tamsulosin HCl) 0.4 Mg Cap 0.4 Mg PO DAILY Pravastatin 10 Mg Tab 1 Tab PO HS Multiple Vitamin 1 Tab 1 Tab PO DAILY Aspirin 81 Mg Chew 81 Mg CHEW DAILY Reported Ditropan (Oxybutynin Chloride) 5 Mg Tab 5 Mg PO HS Myrbetriq (Mirabegron) 50 Mg Tab 50 Mg PO DAILY Valsartan 320 Mg Tab 320 Mg PO HS Trazodone (Trazodone HCl) 50 Mg Tab 100 Mg PO HS Review of Systems Except as stated in HPI: all other systems reviewed are Neg General / Constitutional: No: Fever, Chills Eyes: No: Diploplia HENT: Positive: Lightheadedness, No: Headaches, Vertigo, Neck Stiffness, Neck Pain Cardiovascular: No: Chest Pain or Discomfort, Palpitations Respiratory: No: Cough, Shortness of Breath Gastrointestinal: No: Nausea, Vomiting, Abdominal Pain Genitourinary: Positive: Decreased Urinary Output, No: Dysuria Musculoskeletal: Positive: Weakness, No: Pain Neurologic: Positive: Weakness, Other (More confused), No: Dizziness, Headache Physical Exam Narrative GENERAL: Well-nourished, well-developed patient, in no acute respiratory distress. SKIN: Focused skin assessment warm/dry. HEAD: Normocephalic/atraumatic. EYES: No scleral icterus. No injection or drainage. NECK: Supple, trachea midline. CARDIOVASCULAR: Sinus bradycardia with a rate in the high 50s. No gallops or ectopy. RESPIRATORY: Bilateral fine rhonchi. No rales. Breath sounds were equal bilaterally GASTROINTESTINAL: Abdomen soft, non-tender, nondistended. No rebound or guarding. MUSCULOSKELETAL: No cyanosis, or edema. BACK: No CVA tenderness. No rash. No point tenderness on palpation of the spine. NEUROLOGICAL: Awake and mildly confused. Cranial nerves II through XII intact. Motor and sensory grossly within normal limits. Five out of 5 muscle strength in all muscle groups. Data Data Last Documented VS Vital Signs Date Time Temp Pulse Resp B/P (MAP) Pulse Ox O2 Delivery O2 Flow Rate FiO2 09/19/17 14:57 50 16 104/51 (68) 95 Room Air 09/19/17 13:17 97.8 Orders Orders Complete Blood Count With Diff (09/19/17 14:25) Comprehensive Metabolic Panel (09/19/17 14:25) Thyroid Stimulating Hormone (09/19/17 14:25) Oximetry (09/19/17 14:25) Iv Access Insert/Monitor (09/19/17 14:25) Ecg Monitoring (09/19/17 14:25) [place] (Li) (09/19/17 14:25) Sodium Chlor 0.9% 1000 Ml Inj (Ns 1000 M (09/19/17 14:30) Admit To Inpatient (09/19/17 ) Vital Signs (Adult) Q4H (09/19/17 15:47) Neuro Checks Q4H (09/19/17 15:47) Activity Oob With Assistance (09/19/17 15:47) Intake + Output TEJAL.QSHIFT (09/19/17 15:47) Diet Heart Healthy (09/19/17 Dinner) Sodium Chlor 0.9% 1000 Ml Inj (Ns 1000 M (09/19/17 16:00) Sodium Chloride 0.9% Flush (Ns Flush) (09/19/17 16:00) Sodium Chloride 0.9% Flush (Ns Flush) (09/19/17 21:00) Ondansetron Inj (Zofran Inj) (09/19/17 16:00) Basic Metabolic Panel (Bmp) (09/20/17 06:00) Pt Request For Service (09/19/17 15:47) Scd Bilateral/Knee High TEJAL.BID (09/19/17 15:47) Naloxone Inj (Narcan Inj) (09/19/17 16:00) Docusate Sodium-Senna ([place]-Colace) (09/19/17 21:00) Magnesium Hydroxide Liq (Milk Of Magnesi (09/19/17 16:00) Sennosides (Senokot) (09/19/17 16:00) Bisacodyl Supp (Dulcolax Supp) (09/19/17 16:00) Lactulose Liq (Lactulose Liq) (09/19/17 16:00) Inpatient Certification (09/19/17 ) Admit Order (Ed Use Only) (09/19/17 15:52) Trappe (Li) (09/19/17 14:43) Labs Laboratory Tests Test 09/19/17 14:43 White Blood Count 13.1 TH/MM3 Red Blood Count 4.06 MIL/MM3 Hemoglobin 12.7 GM/DL Hematocrit 37.2 % Mean Corpuscular Volume 91.5 FL Mean Corpuscular Hemoglobin 31.3 PG Mean Corpuscular Hemoglobin Concent 34.2 % Red Cell Distribution Width 12.6 % Platelet Count 231 TH/MM3 Mean Platelet Volume 7.5 FL Neutrophils (%) (Auto) 82.5 % Lymphocytes (%) (Auto) 10.0 % Monocytes (%) (Auto) 6.0 % Eosinophils (%) (Auto) 1.2 % Basophils (%) (Auto) 0.3 % Neutrophils # (Auto) 10.8 TH/MM3 Lymphocytes # (Auto) 1.3 TH/MM3 Monocytes # (Auto) 0.8 TH/MM3 Eosinophils # (Auto) 0.2 TH/MM3 Basophils # (Auto) 0.0 TH/MM3 CBC Comment DIFF FINAL Differential Comment Blood Urea Nitrogen 69 MG/DL Creatinine 3.43 MG/DL Random Glucose 102 MG/DL Total Protein 7.4 GM/DL Albumin 3.8 GM/DL Calcium Level 9.1 MG/DL Alkaline Phosphatase 103 U/L Aspartate Amino Transf (AST/SGOT) 11 U/L Alanine Aminotransferase (ALT/SGPT) 17 U/L Total Bilirubin 0.5 MG/DL Sodium Level 134 MEQ/L Potassium Level 4.2 MEQ/L Chloride Level 107 MEQ/L Carbon Dioxide Level 22.0 MEQ/L Anion Gap 5 MEQ/L Estimat Glomerular Filtration Rate 17 ML/MIN Thyroid Stimulating Hormone 3rd Gen 0.193 uIU/ML [place] Level 2.8 MEQ/L [facility] Medical Decision Making Medical Screen Exam Complete: Yes Emergency Medical Condition: Yes Differential Diagnosis Metabolic derangement versus lithium toxicity versus dehydration Narrative Course 81-year-old male presents with his son with complaints of weakness and altered mental status. Patient was seen by psychiatrist today noted to be supratherapeutic with his lithium. The patient had previous lithium toxicity in the past. [place] level here is 2.8. The patient's BUN and creatinine are elevated his creatinine is gone up from 1.8 baseline to 3.4 baseline. He has been started on IV fluids. Patient also had a TSH sent off that was 0.19. This is obviously subtherapeutic. Given the lithium toxicity, acute on chronic renal injury, hypothyroidism, patient will be admitted as a full inpatient admission. Case was discussed with Dr. Cage, [facility], who is gracious enough to admit the patient to her service. We will hold his lithium. Diagnosis Primary Impression: [place] toxicity Additional Impressions: [id number] kidney injury Hypothyroidism Bipolar disorder Admitting Information Admitting Physician Requests: Admit Jorge A Irving MD Sep 19, 2017 14:01
[2017-09-19] MEDS ORDERED: SODIUM CHLOR 0.9% 1000 ML INJ 1,000 ML IV ONE (14:30)
[2017-09-19 14:57] VITALS: BP 104/51; PULSE 50; RESP 16; O2SAT 95
[2017-09-19 15:17] LABS: AUTOMATED NEUTROPHIL # 10.8 TH/MM3 (1.8-7.7); BASOPHIL % 0.3 % (0.0-2.0); EOSINOPHIL # 0.2 TH/MM3 (0-0.4); EOSINOPHIL % 1.2 % (0.0-4.0); HEMATOCRIT 37.2 % (39.0-51.0); HEMOGLOBIN 12.7 GM/DL (13.0-17.0); LYMPHOCYTE # 1.3 TH/MM3 (1.0-4.8); MEAN CELL VOLUME 91.5 FL (80.0-100.0); MEAN CORPUSCULAR HEMOGLOBIN 31.3 PG (27.0-34.0); MEAN CORPUSCULAR HGB CONC 34.2 % (32.0-36.0); MEAN PLATELET VOLUME 7.5 FL (7.0-11.0); MONOCYTE # 0.8 TH/MM3 (0-0.9); NEUT % 82.5 % (16.0-70.0); PLATELET COUNT 231 TH/MM3 (150-450); RED BLOOD COUNT 4.06 MIL/MM3 (4.50-5.90); RED CELL DISTRIBUTION WIDTH 12.6 % (11.6-17.2); WHITE BLOOD COUNT 13.1 TH/MM3 (4.0-11.0)
[2017-09-19 15:39] LABS: ALBUMIN 3.8 GM/DL (3.4-5.0); ALT (GPT) 17 U/L (12-78); AST (GOT) 11 U/L (15-37); BLOOD UREA NITROGEN 69 MG/DL (7-18); CALCIUM 9.1 MG/DL (8.5-10.1); CHLORIDE 107 MEQ/L (98-107); CREATININE 3.43 MG/DL (0.60-1.30); GLOMERULAR FILTRATION RATE 17 ML/MIN (>89); GLUCOSE,RANDOM 102 MG/DL (74-106); SODIUM (NA) 134 MEQ/L (136-145)
[2017-09-19 15:48] LABS: ALKALINE PHOSPHATASE 103 U/L (45-117); TOTAL BILIRUBIN ADULT 0.5 MG/DL (0.2-1.0); TOTAL PROTEIN 7.4 GM/DL (6.4-8.2)
[2017-09-19] MEDS ORDERED: SENNOSIDES 8.6 MG TAB PO PRN (16:00)
[2017-09-19] MEDS ORDERED: ONDANSETRON HCL 4 MG/2 ML VIAL IVP PRN (16:00)
[2017-09-19] MEDS ORDERED: NALOXONE HCL 0.4 MG/ML AMP IV PUSH PRN (16:00)
[2017-09-19] MEDS ORDERED: SODIUM CHLORIDE 0.9% FLUSH 10 ML FLUSH IV FLUSH PRN (16:00)
[2017-09-19] MEDS ORDERED: LACTULOSE SYRUP 20 GM/30 ML CUP PO PRN (16:00)
[2017-09-19] MEDS ORDERED: MAGNESIUM HYDROXIDE SUSP 30 ML CUP PO PRN (16:00)
[2017-09-19] MEDS ORDERED: BISACODYL 10 MG SUPP RECTAL PRN (16:00)
[2017-09-19] MEDS: SODIUM CHLOR 0.9% 1000 ML INJ 1,000 ML IV SCH (17:35)
[2017-09-19 17:40] VITALS: BP 107/53; PULSE 55; RESP 14; O2SAT 96
[2017-09-19] MEDS ORDERED: SODIUM POLYSTYRENE SULFONATE SUSP 15 GM/60 ML CUP PO ONE (18:15)
[2017-09-19 18:19] VITALS: BP 124/57; PULSE 54; RESP 20; TEMP 97.8; O2SAT 96
[2017-09-19 18:36] LABS: BILIRUBIN, URINE NEG (NEG); BLOOD, URINE NEG (NEG); GLUCOSE,URINE NEG (NEG); KETONE, URINE NEG (NEG); NITRITE,URINE NEG (NEG); PH, URINE 5.5 (5.0-8.5); SQUAMOUS EPITHELIAL CELL URINE <1 /hpf (0-5); URINE COLOR LIGHT-YELLOW (YELLW/STRAW); URINE LEUKOCYTE ESTERASE NEG (NEG)
[2017-09-19 18:45] LABS: CREATININE, RANDOM URINE 66.1 MG/DL
--- NOTE | 2017-09-19 18:54 | HHI.HP ---
[facility] Service [facility] Primary Care Physician Parveen Kerr MD Admission Diagnosis lithium toxicity, acute kidney injury Diagnoses: Travel History International Travel<30 Days: No Contact w/Intl Traveler <30 Da: No Traveled to Known Affected Are: No History of Present Illness 81-year-old male with a history of bipolar disorder, CAD with stenting 3 who presents with a one-week history of gradually worsening ataxia. Was unable to get out of shower today. He was brought in by his 2 sons. He reports otherwise feeling all right. Denies any chest pain, shortness of breath, nausea , vomiting, fevers, chills. Chronic kidney disease, however denies any difficulty with urination. denies dysuria. History of presentation earlier this month lithium toxicity. This resolved, and he was discharged home on lithium and instructions to not start the medication until seen by neurology. Been taking lithium. Review of Systems Except as stated in HPI: all other systems reviewed are Neg Past Family Social History Past Medical History HTN HLD BPH Bipolar disorder CAD EtOH abuse History of lithium toxicity earlier this month. Past Surgical History 3 coronary artery stents placed Tonsillectomy Vasectomy Reported Medications Reported Meds & Active Scripts Active [place] Carbonate 300 Mg Cap 300 Mg PO TID PLEASE DO NOT RESUME LITHIUM MEDICATION UNTIL EVALUATED BY YOUR NEUROLOGIST Flomax (Tamsulosin HCl) 0.4 Mg Cap 0.4 Mg PO DAILY Pravastatin 10 Mg Tab 1 Tab PO HS Multiple Vitamin 1 Tab 1 Tab PO DAILY Aspirin 81 Mg Chew 81 Mg CHEW DAILY Reported Ditropan (Oxybutynin Chloride) 5 Mg Tab 5 Mg PO HS Myrbetriq (Mirabegron) 50 Mg Tab 50 Mg PO DAILY Valsartan 320 Mg Tab 320 Mg PO HS Trazodone (Trazodone HCl) 50 Mg Tab 100 Mg PO HS Allergies: Coded Allergies: bupropion (Unverified Allergy, Severe, RASH, ITCHING, 09/19/17) chlorpromazine (Unverified Allergy, Severe, Rash, 09/19/17) clopidogrel (Verified Allergy, Unknown, 09/19/17) Family History Mother with diabetes. Social History Patient is a former smoker. Smoked 3 packs per day for 30 years, quitting in 1990. denies alcohol use. Denies illicit drug use. Physical Exam Vital Signs Vital Signs Date Time Temp Pulse Resp B/P (MAP) Pulse Ox O2 Delivery O2 Flow Rate FiO2 09/19/17 18:19 97.8 54 20 124/57 (79) 96 09/19/17 17:40 55 14 107/53 (71) 96 Room Air 09/19/17 14:57 50 16 104/51 (68) 95 Room Air 09/19/17 13:17 97.8 56 20 94/48 (63) 97 Physical Exam GENERAL: This is a well-nourished, well-developed patient, in no apparent distress. SKIN: No rashes, ecchymoses or lesions. Cool and dry. HEAD: Atraumatic. Normocephalic. No temporal or scalp tenderness. EYES: Pupils equal round and reactive. Extraocular motions intact. No scleral icterus. No injection or drainage. ENT: Nose without bleeding, purulent drainage or septal hematoma. Throat without erythema, tonsillar hypertrophy or exudate. Uvula midline. Airway patent. NECK: Trachea midline. No JVD or lymphadenopathy. Supple, nontender, no meningeal signs. CARDIOVASCULAR: Regular rate and rhythm without murmurs, gallops, or rubs. RESPIRATORY: Clear to auscultation. Breath sounds equal bilaterally. No wheezes , rales, or rhonchi. GASTROINTESTINAL: Abdomen soft, non-tender, nondistended. No hepato-splenomegaly , or palpable masses. No guarding. MUSCULOSKELETAL: Extremities without clubbing, cyanosis, or edema. No joint tenderness, effusion, or edema noted. No calf tenderness. Negative Homans sign bilaterally. NEUROLOGICAL: Awake and alert. Cranial nerves II through XII intact. Patient with 50-5 strength bilateral upper and lower extremities. Patient with severe ataxia bilateral upper and lower extremities. Laboratory Laboratory Tests Test 09/19/17 14:43 09/19/17 18:00 White Blood Count 13.1 Red Blood Count 4.06 Hemoglobin 12.7 Hematocrit 37.2 Mean Corpuscular Volume 91.5 Mean Corpuscular Hemoglobin 31.3 Mean Corpuscular Hemoglobin Concent 34.2 Red Cell Distribution Width 12.6 Platelet Count 231 Mean Platelet Volume 7.5 Neutrophils (%) (Auto) 82.5 Lymphocytes (%) (Auto) 10.0 Monocytes (%) (Auto) 6.0 Eosinophils (%) (Auto) 1.2 Basophils (%) (Auto) 0.3 Neutrophils # (Auto) 10.8 Lymphocytes # (Auto) 1.3 Monocytes # (Auto) 0.8 Eosinophils # (Auto) 0.2 Basophils # (Auto) 0.0 CBC Comment DIFF FINAL Differential Comment Blood Urea Nitrogen 69 Creatinine 3.43 Random Glucose 102 Total Protein 7.4 Albumin 3.8 Calcium Level 9.1 Alkaline Phosphatase 103 Aspartate Amino Transf (AST/SGOT) 11 Alanine Aminotransferase (ALT/SGPT) 17 Total Bilirubin 0.5 Sodium Level 134 Potassium Level 4.2 Chloride Level 107 Carbon Dioxide Level 22.0 Anion Gap 5 Estimat Glomerular Filtration Rate 17 Thyroid Stimulating Hormone 3rd Gen 0.193 [place] Level 2.8 Urine Color LIGHT-YELLOW Urine Turbidity CLEAR Urine pH 5.5 Urine Specific [place] 1.006 Urine Protein NEG Urine Glucose (UA) NEG Urine Ketones NEG Urine Occult Blood NEG Urine Nitrite NEG Urine Bilirubin NEG Urine Urobilinogen LESS THAN 2.0 Urine Leukocyte Esterase NEG Urine Squamous Epithelial Cells <1 Microscopic Urinalysis Comment CULT NOT INDICATED Urine Random Creatinine 66.1 Urine Random Sodium 26 Result Diagram: 09/19/17 1443 09/19/17 1443 Caprini VTE Risk Assessment Caprini VTE Risk Assessment: Mod/High Risk (score >= 2) Caprini Risk Assessment Model Point Value = 1 Point Value = 2 Point Value = 3 Point Value = 5 Age 41-60 Minor surgery BMI > 25 kg/m2 Swollen legs Varicose veins or History of unexplained or recurrent spontaneous Oral contraceptives or hormone replacement Sepsis (< 1 month) Serious lung disease, including pneumonia (< 1 month) Abnormal pulmonary function Acute myocardial infarction Congestive heart failure (< 1 month) History of inflammatory bowel disease Medical patient at bed rest Age 61-74 Arthroscopic surgery Major open surgery (> 45 min) Laparoscopic surgery (> 45 min) Malignancy Confined to bed (> 72 hours) Immobilizing plaster cast Central venous access Age >= 75 History of VTE Family history of VTE Factor V Leiden Prothrombin [id number] Lupus anticoagulant Anticardiolipin antibodies Elevated serum homocysteine Heparin-induced thrombocytopenia Other congenital or acquired thrombophilia Stroke (< 1 month) Elective arthroplasty Hip, pelvis, or leg fracture Acute spinal cord injury (< 1 month) Prophylaxis Regimen Total Risk Factor Score Risk Level Prophylaxis Regimen 0-1 Low Early ambulation 2 Moderate Order ONE of the following: *Sequential Compression Device (SCD) *Heparin 5000 units SQ BID 3-4 Higher Order ONE of the following medications: *Heparin 5000 units SQ TID *Enoxaparin/Lovenox 40 mg SQ daily (WT < 150 kg, CrCl > 30 mL/min) *Enoxaparin/Lovenox 30 mg SQ daily (WT < 150 kg, CrCl > 10-29 mL/min) *Enoxaparin/Lovenox 30 mg SQ BID (WT < 150 kg, CrCl > 30 mL/min) AND/OR *Sequential Compression Device (SCD) 5 or more Highest Order ONE of the following medications: *Heparin 5000 units SQ TID (Preferred with Epidurals) *Enoxaparin/Lovenox 40 mg SQ daily (WT < 150 kg, CrCl > 30 mL/min) *Enoxaparin/Lovenox 30 mg SQ daily (WT < 150 kg, CrCl > 10-29 mL/min) *Enoxaparin/Lovenox 30 mg SQ BID (WT < 150 kg, CrCl > 30 mL/min) AND *Sequential Compression Device (SCD) Assessment and Plan Assessment and Plan //Acute lithium toxicity with ataxia. //Bipolar disorder //depression -[place] level 2.8 on admission. - no si/HI -Hold lithium. -EKG personally visualized, no change from baseline. Without QT prolongation. -Hold off on medications for now. Plan restart tomorrow. -Aggressive IV fluids. Kayexalate 1 for absorption of lithium. Continue to monitor. Check tomorrow morning. //TSH 0.193. Likely abnormal secondary to lithium. We'll check a T4, total T3. //Acute kidney injury on CK D4. -Creatinine 3.4 from baseline of 1.8. -Hold home valsartan. -Urinalysis, kidney ultrasound ordered. Nephrology consult ordered and pending. IV fluids. Monitor. //Hyperlipidemia. chronic. Continue home medications. //BPH. Makes no sense that patient is on Ditropan, as well as tamsulosin. The blood pressure is borderline. We'll hold off on both for now. Avoid Lai due to risk of confusion and traumatic removal. //Hyponatremia. Sodium 134. Given lithium toxicity, we will recheck in the morning //CAD. Continue aspirin. She is not on beta berny presumably secondary to bradycardia. Discussed Condition With patient, nurse, ED physician Physician Certification 2 Midnight Certification Type: Admission for Inpatient Services Order for Inpatient Services The services are ordered in accordance with Medicare regulations or non- Medicare payer requirements, as applicable. In the case of services not specified as inpatient-only, they are appropriately provided as inpatient services in accordance with the 2-midnight benchmark. Estimated LOS (days): 2 days is the estimated time the patient will need to remain in the hospital, assuming treatment plan goals are met and no additional complications. Post-Hospital Plan: Home Marcelo Flood MD Sep 19, 2017 18:54
[2017-09-19 19:21] VITALS: BP 134/60; PULSE 60; RESP 20; TEMP 97.5; O2SAT 96
[2017-09-19 20:00] VITALS: PULSE 60
[2017-09-19] MEDS: DOCUSATE SODIUM 50 MG/SENNA 8.6 MG TAB PO SCH (20:03)
[2017-09-19] MEDS: SODIUM CHLORIDE 0.9% FLUSH 10 ML FLUSH IV FLUSH SCH (21:00)
--- NOTE | 2017-09-19 21:04 | RADRPT ---
EXAM DATE/TIME: 09/19/2017 20:07 [facility] COMPARISON: No previous studies available for comparison. EXTERNAL COMPARISON : [facility], US KIDNEY, BILATERAL, September 23, 2016 INDICATIONS : Increased BUN/creatinine. MEDICAL HISTORY : Hypertension. Arthritis. Bilateral cataracts. Tremors. Head trauma. Depression. Anticoagulant thera py, Plavix. SURGICAL HISTORY : Coronary artery stent. Cardiac cath. Testicle removed. ENCOUNTER: Initial ACUITY: 1 day PAIN SCORE: 0/10 LOCATION: Bilateral flank MEASUREMENTS: RIGHT KIDNEY: 10.3 x 5.5 x 4.7 cm LEFT KIDNEY: 12.4 x 5.6 x 6.8 cm FINDINGS: RIGHT KIDNEY: Renal parenchyma is echogenic. There is a 12 mm benign-appearing mid zone cyst. No hydronephrosis. LEFT KIDNEY: Renal parenchyma is echogenic. There is a 21 mm upper pole cyst that appears benign. No hydronephrosi s. BLADDER: Within normal limits given the degree of distension. CONCLUSION: 1. Diffusely echogenic kidneys typical of chronic parenchymal disease. 2. No obstruction or other acute abnormality demonstrated. 3. Solitary benign appearing cyst of each kidney. Forrest Rutherford MD on September 19, 2017 at 21:01 Board Certified Radiologist. This report was verified electronically.
[2017-09-19] MEDS: PRAVASTATIN SOD 10 MG TAB PO SCH (21:08)
[2017-09-20] VITALS: BP 145/63; PULSE 61; RESP 20; TEMP 97.6; O2SAT 99
[2017-09-20] MEDS: SODIUM CHLOR 0.9% 1000 ML INJ 1,000 ML IV SCH (00:38)
[2017-09-20 04:00] VITALS: BP 135/65; PULSE 54; RESP 20; TEMP 98.4; O2SAT 99
[2017-09-20 07:36] VITALS: BP 131/52; PULSE 56; RESP 18; TEMP 97.9; O2SAT 98
[2017-09-20] MEDS: ASPIRIN 81 MG CHEW TAB CHEW SCH (08:16)
[2017-09-20] MEDS: DOCUSATE SODIUM 50 MG/SENNA 8.6 MG TAB PO SCH ×2 (08:16→21:00)
[2017-09-20] MEDS: SODIUM CHLORIDE 0.9% FLUSH 10 ML FLUSH IV FLUSH SCH ×2 (08:16→22:19)
--- NOTE | 2017-09-20 08:51 | EKG ---
Date Performed: 09/19/2017 Time Performed: 20:36:14 PTAGE: 81 years EKG: Sinus rhythm WITH FIRST DEGREE AV BLOCK WITH OCCASIONAL VENTRICULAR PREMATURE COMPLEXES INFERIOR MYOCARDIAL INFAR CTION ABNORMAL ECG PREVIOUS TRACING : 09/19/2017 17.47 No change from previous tracing noted. DOCTOR: Jack Garcia Interpretating Date/Time 09/20/2017 08:49:00
--- NOTE | 2017-09-20 09:26 | EKG ---
Date Performed: 09/19/2017 Time Performed: 17:47:51 PTAGE: 81 years EKG: SINUS BRADYCARDIA WITH SINUS ARRHYTHMIA INFERIOR MYOCARDIAL INFARCTION ABNORMAL ECG NO PREVIOUS TRACING DOCTOR: Jack Garcia Interpretating Date/Time 09/20/2017 09:26:03
[2017-09-20 09:44] LABS: BICARBONATE 20.4 MEQ/L (21.0-32.0); CALCIUM 9.4 MG/DL (8.5-10.1); CREATININE 2.1 MG/DL (0.60-1.30)
[2017-09-20] MEDS ORDERED: THIAMINE HCL 100 MG TAB PO ONE (10:00)
[2017-09-20] MEDS ORDERED: PNEUMOCOCCAL POLYVALENT INJ 25 MCG/0.5 ML SYR IM ONE (10:00)
--- NOTE | 2017-09-20 10:21 | EKG ---
Date Performed: 09/19/2017 Time Performed: 13:35:54 PTAGE: 81 years EKG: Sinus rhythm WITH SINUS ARRHYTHMIA POSSIBLE RIGHT VENTRICULAR CONDUCTION DELAY INFERIOR MYOCARDIAL INFARCTION ABN ORMAL ECG NO PREVIOUS TRACING DOCTOR: Jack Garcia Interpretating Date/Time 09/20/2017 10:19:04
--- NOTE | 2017-09-20 10:25 | HHI.PR ---
Subjective Remarks Patient says he is feeling a little better today. Reports moving little more easily. Denies any chest pain or shortness of breath. Denies any nausea or vomiting. He does not feel as if he will be able to go home, may need SNF or rehabilitation. Objective Vital Signs Date Time Temp Pulse Resp B/P (MAP) Pulse Ox O2 Delivery O2 Flow Rate FiO2 09/20/17 07:36 97.9 56 18 131/52 (78) 98 09/20/17 04:00 98.4 54 20 135/65 (88) 99 09/20/17 00:00 97.6 61 20 145/63 (90) 99 09/20/17 00:00 61 09/19/17 20:00 60 09/19/17 19:22 Room Air 09/19/17 19:21 97.5 60 20 134/60 (84) 96 09/19/17 18:19 97.8 54 20 124/57 (79) 96 09/19/17 17:40 55 14 107/53 (71) 96 Room Air 09/19/17 14:57 50 16 104/51 (68) 95 Room Air 09/19/17 13:17 97.8 56 20 94/48 (63) 97 I/O 09/19/17 09/19/17 09/19/17 09/20/17 09/20/17 09/20/17 07:00 15:00 23:00 07:00 15:00 23:00 Intake Total 1240 ml 1140 ml 600 ml Output Total 600 ml 900 ml 800 ml Balance 640 ml 240 ml -200 ml Intake Oral 240 ml 240 ml 600 ml IV Total 1000 ml 900 ml Output Urine Total 600 ml 900 ml 800 ml # Voids 2 3 # Bowel Movements 1 1 0 Result Diagram: 09/19/17 1443 09/20/17 0848 Objective Remarks GENERAL: Sitting up in bed. Ataxia has improved, however he did spill his milk on his chest. He is alert and oriented 3. SKIN: Warm and dry. HEAD: Normocephalic. EYES: No scleral icterus. No injection or drainage. NECK: Supple, trachea midline. No JVD. CARDIOVASCULAR: Regular rate and rhythm without murmurs, gallops, or rubs. RESPIRATORY: Breath sounds equal bilaterally. No accessory muscle use. GASTROINTESTINAL: Abdomen soft, non-tender, nondistended. MUSCULOSKELETAL: No cyanosis, or edema. Still with bilateral upper and lower extremity ataxia, however improved from yesterday. BACK: Nontender without obvious deformity. No CVA tenderness. A/P Assessment and Plan //Acute lithium toxicity with ataxia. //Bipolar disorder //depression -[place] level 2.8 on admission. - no si/HI -Hold lithium. -EKG personally visualized, no change from baseline. Without QT prolongation. -Hold off on medications for now. Plan restart tomorrow. -Aggressive IV fluids. Kayexalate 1 for absorption of lithium. Continue to monitor. Check tomorrow morning. = [place] level this morning 1.9. Improved. Ataxia improving, however not to the point where he can go home. Patient may benefit from short-term rehabilitation. PT consult, OT consult pending. //TSH 0.193. Likely abnormal secondary to lithium. We'll check a T4, total T3. = T4 and T3 within normal limits. TSH low likely secondary to lithium. Patient should have recheck of his TSH in several weeks with primary. //Acute kidney injury on CK D4. -Creatinine 3.4 from baseline of 1.8. -Hold home valsartan. -Urinalysis, kidney ultrasound ordered. Nephrology consult ordered and pending. IV fluids. Monitor. //Hyperlipidemia. chronic. Continue home medications. //BPH. Makes no sense that patient is on Ditropan, as well as tamsulosin. The blood pressure is borderline. We'll hold off on both for now. Avoid Lai due to risk of confusion and traumatic removal. //Hypernatremia. -Sodium 134 on admission. 144 this morning. Switch to one half normal saline. //Leukocytosis on admission. 13.1. Recheck this morning. Likely was stress related. Follow-up labs. //CAD. Continue aspirin. he is not on beta berny presumably secondary to bradycardia. Discharge Planning PT, OT consult pending. Appreciate case management assistance. Marcelo Flood MD Sep 20, 2017 10:25
[2017-09-20 11:19] VITALS: BP 139/56; PULSE 60; RESP 18; TEMP 96.7; O2SAT 98
[2017-09-20 12:16] LABS: AUTOMATED NEUTROPHIL # 8.7 TH/MM3 (1.8-7.7); BASOPHIL % 0.3 % (0.0-2.0); EOSINOPHIL # 0.2 TH/MM3 (0-0.4); EOSINOPHIL % 1.9 % (0.0-4.0); HEMATOCRIT 37.4 % (39.0-51.0); HEMOGLOBIN 12.6 GM/DL (13.0-17.0); LYMPH % 15.3 % (9.0-44.0); LYMPHOCYTE # 1.8 TH/MM3 (1.0-4.8); MEAN CELL VOLUME 91.8 FL (80.0-100.0); MEAN CORPUSCULAR HGB CONC 33.7 % (32.0-36.0); MEAN PLATELET VOLUME 7.5 FL (7.0-11.0); MONO % 7.6 % (0.0-8.0); MONOCYTE # 0.9 TH/MM3 (0-0.9); NEUT % 74.9 % (16.0-70.0); PLATELET COUNT 223 TH/MM3 (150-450); RED BLOOD COUNT 4.07 MIL/MM3 (4.50-5.90); RED CELL DISTRIBUTION WIDTH 12.6 % (11.6-17.2); WHITE BLOOD COUNT 11.6 TH/MM3 (4.0-11.0)
[2017-09-20] MEDS: SODIUM CHLOR 0.45% 1000 ML INJ 1,000 ML IV SCH (12:21)
[2017-09-20 15:38] VITALS: BP 145/61; PULSE 55; RESP 18; TEMP 96.8; O2SAT 96
--- NOTE | 2017-09-20 18:52 | PD.CONS ---
HPI Service Nephrology Consult Requested By Dr. Flood Reason for Consult Acute and chronic kidney disease Primary Care Physician Parveen Kerr MD History of Present Illness Patient is a 81-year-old the white male with history of chronic kidney disease baseline creatinine around 1.7-1.8 with nausea and vomiting and worsening ataxia, his creatinine at time of admission was 3.4 and with hydration it came down to 2.1 today he's feeling better and was rehydrated with normal saline current rate is 84 cc an hour. He follows with Dr. DIETZ. He has lithium toxicity earlier this month and return with lithium toxicity again can't level is 1.9 Review of Systems Constitutional: DENIES: Diaphoretic episodes, Fatigue, Fever, Weight gain, Weight loss, Chills, Dizziness, Change in appetite, Night Sweats Endocrine: DENIES: Heat/cold intolerance, Polydipsia, Polyuria, Polyphagia Gastrointestinal: COMPLAINS OF: Nausea, Vomiting Neurologic: COMPLAINS OF: Abnormal gait Past Family Social History Allergies: Coded Allergies: bupropion (Unverified Allergy, Severe, RASH, ITCHING, 09/19/17) chlorpromazine (Unverified Allergy, Severe, Rash, 09/19/17) clopidogrel (Verified Allergy, Unknown, 09/19/17) Past Medical History HTN HLD BPH Bipolar disorder CAD EtOH abuse History of lithium toxicity earlier this month. Past Surgical History 3 coronary artery stents placed Tonsillectomy Vasectomy Reported Medications Reported Meds & Active Scripts Active [place] Carbonate 300 Mg Cap 300 Mg PO TID PLEASE DO NOT RESUME LITHIUM MEDICATION UNTIL EVALUATED BY YOUR NEUROLOGIST Flomax (Tamsulosin HCl) 0.4 Mg Cap 0.4 Mg PO DAILY Pravastatin 10 Mg Tab 1 Tab PO HS Multiple Vitamin 1 Tab 1 Tab PO DAILY Aspirin 81 Mg Chew 81 Mg CHEW DAILY Reported Ditropan (Oxybutynin Chloride) 5 Mg Tab 5 Mg PO HS Myrbetriq (Mirabegron) 50 Mg Tab 50 Mg PO DAILY Valsartan 320 Mg Tab 320 Mg PO HS Trazodone (Trazodone HCl) 50 Mg Tab 100 Mg PO HS Active Ordered Medications Current Medications Medications (Trade) Dose Ordered Sig/Lavinia Route Start Time Stop Time Status Last Admin (NS Flush) 2 ml UNSCH PRN IV FLUSH 09/19/17 16:00 (NS Flush) 2 ml BID IV FLUSH 09/19/17 21:00 09/19/17 21:00 (Zofran Inj) 4 mg Q6H PRN IVP 09/19/17 16:00 (Narcan Inj) 0.4 mg UNSCH PRN IV PUSH 09/19/17 16:00 ([place]-Colace) 1 tab BID PO 09/19/17 21:00 (Milk Of Magnesia Liq) 30 ml Q12H PRN PO 09/19/17 16:00 (Senokot) 17.2 mg Q12H PRN PO 09/19/17 16:00 (Dulcolax Supp) 10 mg DAILY PRN RECTAL 09/19/17 16:00 (Lactulose Liq) 30 ml DAILY PRN PO 09/19/17 16:00 (Aspirin Chew) 81 mg DAILY CHEW 09/20/17 09:00 09/20/17 08:16 (Pravachol) 10 mg HS PO 09/19/17 21:00 09/19/17 21:08 (Vitamin B1) 100 mg DAILY PO 09/21/17 09:00 Sodium Chloride 1,000 ml @ 84 mls/hr [id number] IV 09/20/17 10:30 09/20/17 12:21 Family History Noncontributory Social History Denies smoking or alcohol Physical Exam Vital Signs Vital Signs Date Time Temp Pulse Resp B/P (MAP) Pulse Ox O2 Delivery O2 Flow Rate FiO2 09/20/17 15:38 96.8 55 18 145/61 (89) 96 09/20/17 11:19 96.7 60 18 139/56 (83) 98 09/20/17 08:20 Room Air 09/20/17 07:36 97.9 56 18 131/52 (78) 98 09/20/17 04:00 98.4 54 20 135/65 (88) 99 09/20/17 00:00 97.6 61 20 145/63 (90) 99 09/20/17 00:00 61 09/19/17 20:00 60 09/19/17 19:22 Room Air 09/19/17 19:21 97.5 60 20 134/60 (84) 96 Physical Exam GENERAL: Well-nourished, well-developed patient. SKIN: Warm and dry. HEAD: Normocephalic. EYES: No scleral icterus. No injection or drainage. NECK: Supple, trachea midline. No JVD or lymphadenopathy. CARDIOVASCULAR: Regular rate and rhythm without murmurs, gallops, or rubs. RESPIRATORY: Breath sounds equal bilaterally. No accessory muscle use. GASTROINTESTINAL: Abdomen soft, non-tender, nondistended. EXTREMITIES: No cyanosis, or edema. NEUROLOGICAL: Awake, alert, and oriented x 3. Non-focal. Laboratory Laboratory Tests Test 09/20/17 08:48 09/20/17 11:40 Blood Urea Nitrogen 44 Creatinine 2.10 Random Glucose 114 Calcium Level 9.4 Sodium Level 144 Potassium Level 3.9 Chloride Level 117 Carbon Dioxide Level 20.4 Anion Gap 7 Estimat Glomerular Filtration Rate 31 Total Triiodothyronine 75 [place] Level 1.9 White Blood Count 11.6 Red Blood Count 4.07 Hemoglobin 12.6 Hematocrit 37.4 Mean Corpuscular Volume 91.8 Mean Corpuscular Hemoglobin 31.0 Mean Corpuscular Hemoglobin Concent 33.7 Red Cell Distribution Width 12.6 Platelet Count 223 Mean Platelet Volume 7.5 Neutrophils (%) (Auto) 74.9 Lymphocytes (%) (Auto) 15.3 Monocytes (%) (Auto) 7.6 Eosinophils (%) (Auto) 1.9 Basophils (%) (Auto) 0.3 Neutrophils # (Auto) 8.7 Lymphocytes # (Auto) 1.8 Monocytes # (Auto) 0.9 Eosinophils # (Auto) 0.2 Basophils # (Auto) 0.0 CBC Comment DIFF FINAL Differential Comment Result Diagram: 09/20/17 1140 09/20/17 0848 Assessment and Plan Problem List: (1) Yltha-iy-bwyzzus kidney injury ICD Codes: N17.9 - Acute kidney failure, unspecified; N18.9 - Chronic kidney disease, unspecified Status: Acute Plan: This has improved anterior creatinine has declined to 2.1, he has declining lithium level (2) Bipolar disorder ICD Codes: F31.9 - Bipolar disorder, unspecified Status: Chronic Plan: Patient was warned against taking lithium he can be switched to alternate medication as intolerant and has chronic kidney disease (3) [place] toxicity ICD Codes: T56.891A - Toxic effect of other metals, accidental (unintentional) , initial encounter Status: Acute Plan: Patient is on lithium and has second admission with same issues Stefanie Jo MD Sep 20, 2017 18:52
[2017-09-20] MEDS: PRAVASTATIN SOD 10 MG TAB PO SCH (22:19)
[2017-09-20 23:39] VITALS: BP 144/65; PULSE 52; RESP 18; TEMP 98.1; O2SAT 100
[2017-09-21] VITALS (8 sets, daily range): BP systolic 132–161; BP diastolic 60–70; PULSE 47–57; RESP 16–20; TEMP 96.1–98.8; O2SAT 97–100
[2017-09-21] MEDS: DOCUSATE SODIUM 50 MG/SENNA 8.6 MG TAB PO SCH ×2 (08:25→21:03)
[2017-09-21] MEDS: ASPIRIN 81 MG CHEW TAB CHEW SCH (08:25)
[2017-09-21] MEDS: THIAMINE HCL 100 MG TAB PO SCH (08:26)
[2017-09-21] MEDS: SODIUM CHLORIDE 0.9% FLUSH 10 ML FLUSH IV FLUSH SCH ×2 (08:26→21:00)
[2017-09-21] MEDS: SODIUM CHLOR 0.45% 1000 ML INJ 1,000 ML IV SCH ×3 (11:17→22:56)
--- NOTE | 2017-09-21 11:58 | HHI.NPPN ---
Subjective History of Present Illness Hx of CKD with [place] toxicity Additional Remarks feels jittery Objective Data Data 09/21/17 09/22/17 19:00 07:00 Output Total 275 ml Balance -275 ml Output Urine Total 275 ml Vital Signs Date Time Temp Pulse Resp B/P (MAP) Pulse Ox O2 Delivery O2 Flow Rate FiO2 09/21/17 07:26 96.1 51 16 155/70 (98) 99 09/21/17 03:10 98.8 50 18 132/60 (84) 100 09/20/17 23:39 98.1 52 18 144/65 (91) 100 09/20/17 15:38 96.8 55 18 145/61 (89) 96 -: 09/20/17 1140 09/20/17 0848 Physical Exam General Appearance: Well Developed, Well Nourished Neck Neck Exam: Neck Supple Cardiology CV Exam: Regular, Normal Sinus Rhythm Gastrointestinal/Abdomen GI Exam: Soft, Non-Tender, Bowel Sounds Present Extremeties Extremities Exam: No Edema Assessment/Plan Problem List: (1) Swhpj-wj-sanilpv kidney injury ICD Codes: N17.9 - Acute kidney failure, unspecified; N18.9 - Chronic kidney disease, unspecified Status: Acute Plan: This has improved await BMP if stable can be dc to home follow with Dr. oM start Depakote as feels Jittery (2) Bipolar disorder ICD Codes: F31.9 - Bipolar disorder, unspecified Status: Chronic Plan: Patient was warned against taking lithium he can be switched to alternate medication as intolerant and has chronic kidney disease start Depakote 250 mg q 12 (3) [place] toxicity ICD Codes: T56.891A - Toxic effect of other metals, accidental (unintentional) , initial encounter Status: Acute Plan: Patient is on lithium and has second admission with same issues Stefanie Jo MD Sep 21, 2017 11:58
[2017-09-21] MEDS ORDERED: VALPROIC ACID 250 MG CAP PO ONE (12:00)
--- NOTE | 2017-09-21 15:29 | HHI.PR ---
Subjective Remarks awake and alert denies any pain po 100% no nausea or vomiting basline independent- but last time he was DC from SNF- given a walker- but not using it per patient Objective Vitals Vital Signs Date Time Temp Pulse Resp B/P (MAP) Pulse Ox O2 Delivery O2 Flow Rate FiO2 09/21/17 15:08 96.3 52 18 161/66 (97) 100 09/21/17 12:37 97.2 49 18 139/66 (90) 100 09/21/17 07:26 96.1 51 16 155/70 (98) 99 09/21/17 03:10 98.8 50 18 132/60 (84) 100 09/20/17 23:39 98.1 52 18 144/65 (91) 100 09/20/17 15:38 96.8 55 18 145/61 (89) 96 I/O 09/20/17 09/20/17 09/20/17 09/21/17 09/21/17 09/21/17 07:00 15:00 23:00 07:00 15:00 23:00 Intake Total 1140 ml 600 ml 960 ml Output Total 900 ml 800 ml 1500 ml 1075 ml Balance 240 ml -200 ml -540 ml -1075 ml Intake Oral 240 ml 600 ml 960 ml IV Total 900 ml Output Urine Total 900 ml 800 ml 1500 ml 1075 ml # Voids 3 4 # Bowel Movements 1 0 1 Result Diagram: 09/20/17 1140 09/20/17 0848 Imaging Last Impressions Renal Ultrasound 09/19/17 0000 Signed Impressions: Service Date/Time: August 20:07 - CONCLUSION: 1. Diffusely echogenic kidneys typical of chronic parenchymal disease. 2. No obstruction or other acute abnormality demonstrated. 3. Solitary benign appearing cyst of each kidney. Forrest Rutherford MD Objective Remarks awake and alert, oriented x 3 anicteric lungs clear regular rhythm- HR 56/min abdomen soft, nontender extremities no edema. slightly tremulous A/P Assessment and Plan 81 years old male Acute lithium toxicity with ataxia. History of Bipolar disorder - lithium level daily -Hold lithium. -Aggressive IV fluids. Get psychiatry consult for recommendations- second admission for [place] toxicity TSH 0.193. - low but not suppressed Likely abnormal secondary to lithium. = T4 and T3 within normal limits. Patient should have recheck of his TSH in several weeks with primary. Acute kidney injury on CK D4. -Creatinine trending down- today- pending -Hold home valsartan. - continue IVF - started on Depakote by Nephrology //Hyperlipidemia. chronic. Continue home medications. //BPH. Makes no sense that patient is on Ditropan, as well as tamsulosin. The blood pressure is borderline. We'll hold off on both for now. Avoid Lai due to risk of confusion and traumatic removal. //Hypernatremia.- improve -Sodium 134 on admission. 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
[2017-09-21 18:02] LABS: BICARBONATE 21.7 MEQ/L (21.0-32.0); CALCIUM 9.2 MG/DL (8.5-10.1); CREATININE 1.55 MG/DL (0.60-1.30)
[2017-09-21] MEDS: VALPROIC ACID 250 MG CAP PO SCH (21:03)
[2017-09-21] MEDS: PRAVASTATIN SOD 10 MG TAB PO SCH (21:03)
[2017-09-22] VITALS (9 sets, daily range): BP systolic 108–147; BP diastolic 60–72; PULSE 50–92; RESP 16–18; TEMP 96.2–98.2; O2SAT 96–100
--- NOTE | 2017-09-22 08:33 | HHI.PR ---
Subjective Remarks awake and alert, no complains of headaches, nausea or vomiting some hesitancy is speech- baseline ff all commands voiding spontaneously states ff by PCP and a psychiatrist Objective Vitals Vital Signs Date Time Temp Pulse Resp B/P (MAP) Pulse Ox O2 Delivery O2 Flow Rate FiO2 09/22/17 03:46 97.9 52 16 132/60 (84) 100 09/21/17 23:40 96.7 55 20 137/70 (92) 97 09/21/17 23:30 Room Air 09/21/17 23:30 57 09/21/17 19:44 98.1 51 18 135/60 (85) 100 09/21/17 16:00 47 09/21/17 15:08 96.3 52 18 161/66 (97) 100 09/21/17 12:37 97.2 49 18 139/66 (90) 100 I/O 09/21/17 09/21/17 09/21/17 09/22/17 09/22/17 09/22/17 07:00 15:00 23:00 07:00 15:00 23:00 Intake Total 240 ml 720 ml Output Total 1075 ml 1300 ml 700 ml Balance -1075 ml -1060 ml 20 ml Intake Oral 240 ml 720 ml Output Urine Total 1075 ml 1300 ml 700 ml # Voids 1 # Bowel Movements 1 Result Diagram: 09/20/17 1140 09/21/17 1621 Imaging Last Impressions Renal Ultrasound 09/19/17 0000 Signed Impressions: Service Date/Time: August 20:07 - CONCLUSION: 1. Diffusely echogenic kidneys typical of chronic parenchymal disease. 2. No obstruction or other acute abnormality demonstrated. 3. Solitary benign appearing cyst of each kidney. Forrest Rutherford MD Objective Remarks awake and alert, oriented x 3 anicteric lungs clear regular rhythm- HR 58 min abdomen soft, nontender extremities no edema. slightly tremulous moves all extremities spontaneously A/P Assessment and Plan 81 years old male Acute lithium toxicity with ataxia. History of Bipolar disorder - lithium level down -Hold lithium. - continue fluids - PT daily Get psychiatry consult for recommendations- second admission for [place] toxicity - started on Depakote TSH 0.193. - low but not suppressed Likely abnormal secondary to lithium. = T4 and T3 within normal limits. Patient should have recheck of his TSH in several weeks with primary. Acute kidney injury on CK D4.- creatinine trending down -Hold home valsartan. - continue IVF - started on Depakote by Nephrology //Hyperlipidemia. chronic. Continue home medications. //BPH. Makes no sense that patient is on Ditropan, as well as tamsulosin. The blood pressure is borderline. BP improved Avoid Lai due to risk of confusion and traumatic removal. - restart flomax //Hypernatremia.- improve -Sodium 134 on admission. - ff BMP History of TBI 2016 with subdural hematoma- baseline mild encephalopathy - PT/OT daily - baseline uses a walker Lovenox for DVT prophylaxis CM consult- patient lives in a Mobile home by himself- son checks on him DC planning- may need SNF vs Home with home health with home PT Hermann Martinez MD Sep 22, 2017 08:33
[2017-09-22] MEDS: VALPROIC ACID 250 MG CAP PO SCH ×2 (09:00→20:54)
[2017-09-22] MEDS: DOCUSATE SODIUM 50 MG/SENNA 8.6 MG TAB PO SCH ×2 (09:24→20:55)
[2017-09-22] MEDS: SODIUM CHLORIDE 0.9% FLUSH 10 ML FLUSH IV FLUSH SCH ×2 (09:24→20:55)
[2017-09-22] MEDS: ASPIRIN 81 MG CHEW TAB CHEW SCH (09:24)
[2017-09-22] MEDS: THIAMINE HCL 100 MG TAB PO SCH (09:24)
[2017-09-22] MEDS: ENOXAPARIN SODIUM 30 MG/0.3 ML SYRINGE SQ SCH (09:41)
--- NOTE | 2017-09-22 12:50 | HHI.NPPN ---
Subjective History of Present Illness Hx of CKD with [place] toxicity Additional Remarks feels better Objective Data Data Vital Signs Date Time Temp Pulse Resp B/P (MAP) Pulse Ox O2 Delivery O2 Flow Rate FiO2 09/22/17 08:00 98.2 92 18 108/72 (84) 96 09/22/17 03:46 97.9 52 16 132/60 (84) 100 09/21/17 23:40 96.7 55 20 137/70 (92) 97 09/21/17 23:30 Room Air 09/21/17 23:30 57 09/21/17 19:44 98.1 51 18 135/60 (85) 100 09/21/17 16:00 47 09/21/17 15:08 96.3 52 18 161/66 (97) 100 -: 09/20/17 1140 09/21/17 1621 Physical Exam General Appearance: Well Developed, Well Nourished Neck Neck Exam: Neck Supple Cardiology CV Exam: Regular, Normal Sinus Rhythm Gastrointestinal/Abdomen GI Exam: Soft, Non-Tender, Bowel Sounds Present Extremeties Extremities Exam: No Edema Assessment/Plan Problem List: (1) Qlzhj-co-ppdejjn kidney injury ICD Codes: N17.9 - Acute kidney failure, unspecified; N18.9 - Chronic kidney disease, unspecified Status: Acute Plan: This has improved await BMP if stable can be dc to home follow with Dr. Mo started Depakote agree with Psychiatry opinion (2) Bipolar disorder ICD Codes: F31.9 - Bipolar disorder, unspecified Status: Chronic Plan: Patient was warned against taking lithium he can be switched to alternate medication as intolerant and has chronic kidney disease started Depakote 250 mg q 12 (3) [place] toxicity ICD Codes: T56.891A - Toxic effect of other metals, accidental (unintentional) , initial encounter Status: Acute Plan: Patient is on lithium and has second admission with same issues Level declined Stefanie Jo MD Sep 22, 2017 12:50
--- NOTE | 2017-09-22 14:10 | PD.PSY.CON ---
Provisional Diagnosis Admission Date Sep 19, 2017 at 16:01 Allen I. Bipolar disorder chronic in partial remission recent episode mixed f 31.70, lithium toxicity t 56.1959 History of Present Illness Service Psychiatry Consult Requested By Attending MLynne. Reason for Consult Assessment Primary Care Physician Parveen Kerr MD HPI This the second episode this month of lithium toxicity on a 81-year-old gentleman[place] [facility] [place]. Patient seen in his room with hospice case manager is alert oriented calm cooperative with me is in no acute distress. Acknowledges being bipolar. He states he is made attempts to be cooperative with the dosing of his lithium. He denies any alcohol or drug use related to this. He states she's noticed some difficulty with management of his medication since the of his about a year ago. He lives by himself in a manufactured home he states his son that lives with a couple blocks of them. He denies suicidality homicidality voices or visions. He has been cooperative with this treatment and with his physicians. He states he talked with his other doctor and his son prior to my seeing him and they all agree that he does need further long-term placement and is willing to do that. We talked about medication also I feel with his history of multiple lithium toxicity episodes that the lithium should be totally discontinue. I noticed that Depakote has been started on this gentleman biographical denies appropriate choice to help him maintain stability with his bipolar disorder. The son agreed to slow titration of the Depakote while monitoring his other metabolic issues related to the lithium toxicity and monitoring his mood. At this time patient does not meet criteria for an acute inpatient psychiatric hospitalization. As okay by psych for patient to be discharged to some type of a longer-term rehabilitation facility thanks for consult I will sign off at the present time of interest patient states that he and his son have already made appointments to see Dr. bonita manjarrez for outpatient care Review of Systems Constitutional: DENIES: Diaphoretic episodes, Fatigue, Fever, Weight gain, Weight loss, Chills, Dizziness, Change in appetite, Night Sweats Endocrine: DENIES: Heat/cold intolerance, Polydipsia, Polyuria, Polyphagia Eyes: DENIES: Blurred vision, Diplopia, Eye inflammation, Eye pain, Vision loss , Photosensitivity, Double Vision Ears, nose, mouth, throat: DENIES: Tinnitus, Hearing loss, Vertigo, Nasal discharge, Oral lesions, Throat pain, Hoarseness, Ear Pain, Running Nose, Epistaxis, Sinus Pain, Toothache, Odynophagia Respiratory: DENIES: Apneas, Cough, Snoring, Wheezing, Hemoptysis, Sputum production, Shortness of breath Cardiovascular: DENIES: Chest pain, Palpitations, Syncope, Dyspnea on Exertion , PND, Lower Extremity Edema, Orthopnea, Claudication Gastrointestinal: DENIES: Abdominal pain, Black stools, Bloody stools, Constipation, Diarrhea, Nausea, Vomiting, Difficulty Swallowing, Anorexia Genitourinary: DENIES: Sexual dysfunction, Urinary frequency, Urinary incontinence, Urgency, Hematuria, Dysuria, Nocturia, Penile Discharge, Testicular Pain, Testicular Swelling Musculoskeletal: DENIES: Joint pain, Muscle aches, Stiffness, Joint Swelling, Back pain, Neck pain Integumentary: DENIES: Abnormal pigmentation, Nail changes, Pruritus, Rash Hematologic/lymphatic: DENIES: Bruising, Lymphadenopathy Immunologic/allergic: DENIES: Eczema, Urticaria Neurologic: DENIES: Abnormal gait, Headache, Localized weakness, Paresthesias, Seizures, Speech Problems, Tremor, Poor Balance Psychiatric: DENIES: Anxiety, Confusion, Mood changes, Depression, Hallucinations, Agitation, Suicidal Ideation, Homicidal Ideation, Delusions Past Family Social History Coded Allergies: bupropion (Unverified Allergy, Severe, RASH, ITCHING, 09/19/17) chlorpromazine (Unverified Allergy, Severe, Rash, 09/19/17) clopidogrel (Verified Allergy, Unknown, 09/19/17) Active Scripts [place] Carbonate ([place] Carbonate) 300 Mg Cap, 300 MG PO TID for mood stabilizer, #90 CAP 1 Refill PLEASE DO NOT RESUME LITHIUM MEDICATION UNTIL EVALUATED BY YOUR NEUROLOGIST Prov:Marley Baldwin 09/01/17 Tamsulosin (Flomax) 0.4 Mg Cap, 0.4 MG PO DAILY for Manage Prostate Problems, # 30 CAP 1 Refill Prov:Denisse Cook MD 06/25/16 Pravastatin (Pravastatin) 10 Mg Tab, 1 TAB PO HS for Cholesterol Management, # 30 TAB 1 Refill Prov:Denisse Cook MD 06/25/16 Multiple Vitamin (Multiple Vitamin) 1 Tab, 1 TAB PO DAILY for Nutritional Supplement, #30 TAB 1 Refill Prov:Denisse Cook MD 06/25/16 Aspirin (Aspirin) 81 Mg Chew, 81 MG CHEW DAILY, #30 TAB 1 Refill Prov:Denisse Cook MD 06/25/16 Reported Medications Oxybutynin (Ditropan) 5 Mg Tab, 5 MG PO HS for Urinary Symptom Managemen, #60 TAB 0 Refills 08/31/17 Mirabegron (Myrbetriq) 50 Mg Tab, 50 MG PO DAILY for Urinary Symptom Managemen, #30 TAB 0 Refills 08/31/17 Valsartan (Valsartan) 320 Mg Tab, 320 MG PO HS, #30 TAB 0 Refills 08/31/17 Trazodone (Trazodone) 50 Mg Tab, 100 MG PO HS for Control Depression, #30 TAB 0 Refills 08/31/17 Current Medications Medications (Trade) Dose Ordered Sig/Lavinia Route Start Time Stop Time Status Last Admin (NS Flush) 2 ml UNSCH PRN IV FLUSH 09/19/17 16:00 (NS Flush) 2 ml BID IV FLUSH 09/19/17 21:00 09/22/17 09:24 (Zofran Inj) 4 mg Q6H PRN IVP 09/19/17 16:00 (Narcan Inj) 0.4 mg UNSCH PRN IV PUSH 09/19/17 16:00 ([place]-Colace) 1 tab BID PO 09/19/17 21:00 09/22/17 09:24 (Milk Of Magnesia Liq) 30 ml Q12H PRN PO 09/19/17 16:00 (Senokot) 17.2 mg Q12H PRN PO 09/19/17 16:00 (Dulcolax Supp) 10 mg DAILY PRN RECTAL 09/19/17 16:00 (Lactulose Liq) 30 ml DAILY PRN PO 09/19/17 16:00 (Aspirin Chew) 81 mg DAILY CHEW 09/20/17 09:00 09/22/17 09:24 (Pravachol) 10 mg HS PO 09/19/17 21:00 09/21/17 21:03 (Vitamin B1) 100 mg DAILY PO 09/21/17 09:00 09/22/17 09:24 Sodium Chloride 1,000 ml @ 84 mls/hr [id number] IV 09/20/17 10:30 09/21/17 22:56 (Depakene) 250 mg Q12HR PO 09/21/17 21:00 09/21/17 21:03 (Lovenox Inj) 30 mg Q24H SQ 09/22/17 09:00 09/22/17 09:41 Family Psych History Patient denies Social History Patient would've lives by himself his supportive family Patient's Strengths (min. 2) Patient verbal cooperative irritable [facility] Physical Exam Please see MedSurg assessments Vital Signs Vital Signs Date Time Temp Pulse Resp B/P (MAP) Pulse Ox O2 Delivery O2 Flow Rate FiO2 09/22/17 08:00 98.2 92 18 108/72 (84) 96 09/21/17 23:30 Room Air I/O 09/22/17 09/22/17 09/23/17 08:00 16:00 00:00 Intake Total 720 ml Output Total 700 ml Balance 20 ml Lab Results Test 09/21/17 16:21 Blood Urea Nitrogen 26 MG/DL Creatinine 1.55 MG/DL Random Glucose 108 MG/DL Calcium Level 9.2 MG/DL Sodium Level 143 MEQ/L Potassium Level 4.8 MEQ/L Chloride Level 116 MEQ/L Carbon Dioxide Level 21.7 MEQ/L Anion Gap 5 MEQ/L Estimat Glomerular Filtration Rate 43 ML/MIN [place] Level 1.4 MEQ/L Mental Status Examination Appearance: Appropriate Consciousness: Alert Orientation: x4 Motor Activity: Other (patient in bed unable to evaluate gait) Speech: Unremarkable Language: Adequate Fund of Knowledge: Adequate Attention and Concentration: Adequate Memory: Unremarkable (fair) Mood: Other (euthymic) Affect: Other (good range and intensity) Thought Process & Associations: Intact Thought Content: Appropriate Hallucination Type: None Delusion Type: None Suicidal Ideation: No Suicidal Plan: No Suicidal Intention: No Homicidal Ideation: No Homicidal Plan: No Homicidal Intention: No Insight: Fair Judgment: Impulsive Assessment & Plan Problem List: (1) Bipolar disorder ICD Codes: F31.9 - Bipolar disorder, unspecified Status: Chronic (2) [place] toxicity ICD Codes: T56.891A - Toxic effect of other metals, accidental (unintentional) , initial encounter Status: Acute Assessment & Plan Estimated LOS: days this time and agree with medicine decision to discontinue lithium and to initiate Depakote treatment, slow titrated basis. As okay by psych for discharge from appropriate rehabilitation type facility when medically clear and stable. Patient does not meet criteria for acute inpatient hospitalization or for [facility]. Patient also follow-up outpatient with Dr. manjarrez Thanks for consult I'll sign off the present time Discharge Planning To be determined by medical team Request HC Surrog/Guard Advoc?: No Problem Qualifiers (1) Bipolar disorder: Qualified Codes: F31.70 - Bipolar disorder, currently in remission, most recent episode unspecified Forrest Kirk MD Sep 22, 2017 14:10
[2017-09-22 14:26] LABS: BICARBONATE 17.2 MEQ/L (21.0-32.0); CALCIUM 8.9 MG/DL (8.5-10.1); CREATININE 1.51 MG/DL (0.60-1.30)
[2017-09-22] MEDS: PRAVASTATIN SOD 10 MG TAB PO SCH (20:55)
[2017-09-22] MEDS: SODIUM CHLOR 0.45% 1000 ML INJ 1,000 ML IV SCH (20:59)
[2017-09-23 03:05] VITALS: PULSE 54
[2017-09-23 04:20] VITALS: BP 151/63; PULSE 59; RESP 17; TEMP 96.9; O2SAT 98
[2017-09-23 08:00] VITALS: BP 149/65; PULSE 56; RESP 17; TEMP 96.1; O2SAT 95
--- NOTE | 2017-09-23 08:22 | HHI.PR ---
Subjective Remarks doing great- no complains pleasant and cooperative po good voiding spontaneously Objective Vitals Vital Signs Date Time Temp Pulse Resp B/P (MAP) Pulse Ox O2 Delivery O2 Flow Rate FiO2 09/23/17 08:00 96.1 56 17 149/65 (93) 95 09/23/17 04:20 96.9 59 17 151/63 (92) 98 09/23/17 03:05 54 09/22/17 23:31 51 09/22/17 23:09 96.7 60 18 137/65 (89) 99 09/22/17 20:50 59 09/22/17 20:50 Room Air 09/22/17 19:57 50 09/22/17 19:13 96.7 60 18 129/63 (85) 100 09/22/17 16:00 97.4 50 18 147/64 (91) 99 09/22/17 12:00 96.2 53 18 137/67 (90) 99 I/O 09/22/17 09/22/17 09/22/17 09/23/17 09/23/17 09/23/17 07:00 15:00 23:00 07:00 15:00 23:00 Intake Total 720 ml 850 ml 360 ml 720 ml Output Total 700 ml Balance 20 ml 850 ml 360 ml 720 ml Intake Oral 720 ml 850 ml 360 ml 720 ml Output Urine Total 700 ml # Voids 3 2 4 # Bowel Movements 1 4 0 0 Result Diagram: 09/20/17 1140 09/22/17 1350 Imaging Last Impressions Renal Ultrasound 09/19/17 0000 Signed Impressions: Service Date/Time: August 20:07 - CONCLUSION: 1. Diffusely echogenic kidneys typical of chronic parenchymal disease. 2. No obstruction or other acute abnormality demonstrated. 3. Solitary benign appearing cyst of each kidney. Forrest Rutherford MD Objective Remarks awake and alert, oriented x 3 anicteric lungs clear regular rhythm- abdomen soft, nontender extremities no edema. moves all extremities spontaneously ambualted- well- with walker A/P Assessment and Plan 81 years old male Acute lithium toxicity with ataxia. History of Bipolar disorder - lithium level down - [place] discontinued - appreciate- psychiatry- recommendation - started on Depakote TSH 0.193. - low but not suppressed Likely abnormal secondary to lithium. = T4 and T3 within normal limits. Patient should have recheck of his TSH in several weeks with primary. Acute kidney injury on CK D4.- creatinine trending down likely with underlying CKI Hypertension -Hold home valsartan.due to TRAVIS - started on Depakote - good BP readings off ARB. consider CCB- Amlodipine for BP control if needed //Hyperlipidemia. chronic. Continue home medications. //BPH. Makes no sense that patient is on Ditropan, as well as tamsulosin. The blood pressure is borderline. BP improved Avoid Lai due to - risk of confusion and traumatic removal. - restart flomax - voiding spontaneously //Hypernatremia.- improve -Sodium 134 on admission. 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
[2017-09-23] MEDS: ASPIRIN 81 MG CHEW TAB CHEW SCH (08:50)
[2017-09-23] MEDS: SODIUM CHLORIDE 0.9% FLUSH 10 ML FLUSH IV FLUSH SCH (08:50)
[2017-09-23] MEDS: ENOXAPARIN SODIUM 30 MG/0.3 ML SYRINGE SQ SCH (08:50)
[2017-09-23] MEDS: THIAMINE HCL 100 MG TAB PO SCH (08:50)
[2017-09-23] MEDS: VALPROIC ACID 250 MG CAP PO SCH (08:50)
[2017-09-23] MEDS: SODIUM CHLOR 0.45% 1000 ML INJ 1,000 ML IV SCH (08:51)
[2017-09-23] MEDS: DOCUSATE SODIUM 50 MG/SENNA 8.6 MG TAB PO SCH (08:51)
[2017-09-23 09:23] LABS: BICARBONATE 18.7 MEQ/L (21.0-32.0); CALCIUM 9.9 MG/DL (8.5-10.1); CREATININE 1.52 MG/DL (0.60-1.30)
[2017-09-23 10:45] VITALS: PULSE 56
[2017-09-23 12:00] VITALS: BP 143/65; PULSE 63; RESP 17; TEMP 97.7; O2SAT 97
[2017-09-23] MEDS ORDERED: VALP250 PO (13:45)
--- NOTE | 2017-09-23 13:49 | HHI.DS ---
Discharge Summary Admission Date Sep 19, 2017 at 16:01 Discharge Date: Sep 23, 2017 Admitting Diagnosis lithium toxicity, acute kidney injury Procedures none Brief History - From Admission 81-year-old male with a history of bipolar disorder, CAD with stenting 3 who presents with a one-week history of gradually worsening ataxia. Was unable to get out of shower today. He was brought in by his 2 sons. He reports otherwise feeling all right. Denies any chest pain, shortness of breath, nausea , vomiting, fevers, chills. Chronic kidney disease, however denies any difficulty with urination. denies dysuria. History of presentation earlier this month lithium toxicity. This resolved, and he was discharged home on lithium and instructions to not start the medication until seen by neurology. Been taking lithium. CBC/BMP: 09/20/17 1140 09/23/17 0800 Significant Findings Laboratory Tests Test 09/21/17 16:21 09/22/17 13:50 09/23/17 08:00 Blood Urea Nitrogen 26 MG/DL (7-18) 25 MG/DL (7-18) 22 MG/DL (7-18) Creatinine 1.55 MG/DL (0.60-1.30) 1.51 MG/DL (0.60-1.30) 1.52 MG/DL (0.60-1.30) Random Glucose 108 MG/DL (74-106) Chloride Level 116 MEQ/L (98-107) 115 MEQ/L (98-107) 113 MEQ/L (98-107) Estimat Glomerular Filtration Rate 43 ML/MIN (>89) 45 ML/MIN (>89) 44 ML/MIN (>89) Carbon Dioxide Level 17.2 MEQ/L (21.0-32.0) 18.7 MEQ/L (21.0-32.0) Imaging Last Impressions Renal Ultrasound 09/19/17 0000 Signed Impressions: Service Date/Time: August 20:07 - CONCLUSION: 1. Diffusely echogenic kidneys typical of chronic parenchymal disease. 2. No obstruction or other acute abnormality demonstrated. 3. Solitary benign appearing cyst of each kidney. Forrest Rutherford MD PE at Discharge awake and alert, oriented x 3 anicteric lungs clear regular rhythm- abdomen soft, nontender extremities no edema. moves all extremities spontaneously ambualted- well- with walker Pt update on day of discharge no complains voiding well Hospital Course 81 years old male Acute lithium toxicity with ataxia. History of Bipolar disorder - lithium level down - [place] discontinued - appreciate- psychiatry- recommendation - started on Depakote TSH 0.193. - low but not suppressed Likely abnormal secondary to lithium. = T4 and T3 within normal limits. Patient should have recheck of his TSH in several weeks with primary. Acute kidney injury on CK D4.- creatinine trending down likely with underlying CKI Hypertension -Hold home valsartan.due to TRAVIS - started on Depakote - good BP readings off ARB. consider CCB- Amlodipine for BP control if needed //Hyperlipidemia. chronic. Continue home medications. //BPH. Makes no sense that patient is on Ditropan, as well as tamsulosin. The blood pressure is borderline. BP improved Avoid Lai due to - risk of confusion and traumatic removal. - restart flomax - voiding spontaneously //Hypernatremia.- improve -Sodium 134 on admission. 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- baseline mild encephalopathy - PT/OT daily - baseline uses a walker Lovenox for DVT prophylaxis CM consult- patient lives in a Mobile home by himself- son checks on him DC planning- SNF DC today to SNF if arranged Pt Condition on Discharge: Stable Discharge Disposition: Discharge to SNF Discharge Time: <= 30 minutes Discharge Instructions DIET: Follow Instructions for: Heart Healthy Diet Activities you can perform: Weight Bearing as Ariana Follow up Referrals: PCP Follow-up - 09/25/17 with [facility] - 1 Week with [facility] New Orders: BASIC METABOLIC PROF - 09/25/17 New Medications: Valproic Acid (Depakene) 250 Mg Cap 250 MG PO Q12HR for BIPOdis for 30 Days, CAP Continued Medications: Aspirin (Aspirin) 81 Mg Chew 81 MG CHEW DAILY, #30 TAB 1 Refill Multiple Vitamin (Multiple Vitamin) 1 Tab 1 TAB PO DAILY for Nutritional Supplement, #30 TAB 1 Refill Pravastatin (Pravastatin) 10 Mg Tab 1 TAB PO HS for Cholesterol Management, #30 TAB 1 Refill Tamsulosin (Flomax) 0.4 Mg Cap 0.4 MG PO DAILY for Manage Prostate Problems, #30 CAP 1 Refill Discontinued Medications: [place] Carbonate ([place] Carbonate) 300 Mg Cap 300 MG PO TID for mood stabilizer, #90 CAP 1 Refill PLEASE DO NOT RESUME LITHIUM MEDICATION UNTIL EVALUATED BY YOUR NEUROLOGIST Mirabegron (Myrbetriq) 50 Mg Tab 50 MG PO DAILY for Urinary Symptom Managemen, #30 TAB 0 Refills Oxybutynin (Ditropan) 5 Mg Tab 5 MG PO HS for Urinary Symptom Managemen, #60 TAB 0 Refills Trazodone (Trazodone) 50 Mg Tab 100 MG PO HS for Control Depression, #30 TAB 0 Refills Valsartan (Valsartan) 320 Mg Tab 320 MG PO HS, #30 TAB 0 Refills Hermann Martinez MD Sep 23, 2017 13:49
[2017-09-24] MEDS ORDERED: TAMSULOSIN HCL 0.4 MG CAP PO SCH (09:00)
== END 2017-09-23 16:41 | DRG 917 ==
LOC: NEPE 12:51 → NEDA 16:01 → NEDH 20:10 → NEPFCDU 09-20 02:44 → N06B 09-21 23:22
PROVIDERS: ADMIT Internal Medicine; ATTEND Internal Medicine
DX: T43.591A Poisoning by other antipsychotics and neuroleptics, accidental (unintentional), initial encounter (principal); G93.40 Encephalopathy, unspecified; N17.9 Acute kidney failure, unspecified; N18.4 Chronic kidney disease, stage 4 (severe); E87.1 Hypo-osmolality and hyponatremia; R26.0 Ataxic gait; I25.10 Atherosclerotic heart disease of native coronary artery without angina pectoris; E78.5 Hyperlipidemia, unspecified; N40.0 Benign prostatic hyperplasia without lower urinary tract symptoms; I12.9 Hypertensive chronic kidney disease with stage 1 through stage 4 chronic kidney disease, or unspecified chronic kidney disease; D72.829 Elevated white blood cell count, unspecified; R00.1 Bradycardia, unspecified; E03.9 Hypothyroidism, unspecified; F10.10 Alcohol abuse, uncomplicated; F17.210 Nicotine dependence, cigarettes, uncomplicated; F31.77 Bipolar disorder, in partial remission, most recent episode mixed; Z87.820 Personal history of traumatic brain injury; Z95.5 Presence of coronary angioplasty implant and graft
CPT/HCPCS: 76775; 80048; 80053; 80178; 81001; 82570; 84300; 84439; 84443; 84480; 85025; 93005; 96360; G8987-GO; G8988-GO; J1650; J7030

== ENCOUNTER 2017-11-10 12:14 | Inpatient (IN) | payer OTHER, MEDICARE ==
[~2017-11-10] VITALS: Ht 172.7 cm; Wt 75.7 kg
[~2017-11-10 12:14] MED LIST changes: -LITH300C2 PO; -MIRA50TA PO; -OXYB5TAB8 PO; -TRAZ50TA12 PO; +VALP250 PO; -VALS1TAB70 PO
[2017-11-10 12:20] VITALS: BP 210/95; PULSE 119; RESP 20; TEMP 96.9; O2SAT 96
--- NOTE | 2017-11-10 12:44 | PD ---
HPI Chief Complaint: Psychiatric Symptoms Time Seen by Provider: 12:27 Travel History International Travel<30 days: No Contact w/Intl Traveler<30days: No Traveled to known affect area: No History of Present Illness HPI 82-year-old male with history of bipolar disorder presents emergency department with his family for evaluation of bizarre behaviors. Family is concerned because the patient was taken off of lithium on his last hospitalization here following a lithium toxicity. He was started on Depakote. Patient has been taking this as prescribed however his behavior is becoming more bizarre. He is more manic. He is not sleeping. He is driving to places that he should not be at 3 and 4 in the morning. Family states that he does not stop talking and he comes up with bizarre situations. He believes that salt is coming out of his eyes. He tells me of people looking into his eyes and losing their mind. He denies suicidal homicidal ideations. He does feel like his medications are not helping him at this time and the need to be adjusted. He has not been recently ill. He has no other symptoms to report. The family is very concerned and would like for him to get help as he does live alone. PFSH Past Medical History Hx Anticoagulant Therapy: Yes (plavix) Arthritis: Yes Asthma: No Autoimmune Disease: No Blood Disorders: No Anxiety: No Depression: No Heart Rhythm Problems: No Cancer: No Cardiac Catheterization: Yes Cardiovascular Problems: Yes (cardiac stents) High Cholesterol: No Chemotherapy: No Chest Pain: No Congestive Heart Failure: No COPD: No Cerebrovascular Accident: No Diabetes: No Endocrine: No GERD: No Glaucoma: No Genitourinary: Yes (extensive lithium use, states ckd) Headaches: No Hiatal Hernia: No Hypertension: Yes Immune Disorder: No Kidney Stones: No Musculoskeletal: No Neurologic: Yes (tremors ) Psychiatric: Yes (bipolar disorder, dyslexic (childhood)) Reproductive: No Respiratory: No Migraines: No Myocardial Infarction: No Radiation Therapy: No Renal Failure: No Seizures: No Sickle Cell Disease: No Sleep Apnea: No Thyroid Disease: No Ulcer: No Tetanus Vaccination: < 5 Years Past Surgical History Abdominal Surgery: No AICD: No Arteriovenous Shunt: No Cardiac Surgery: Yes (cardiac stents) Coronary Stent: Yes Ear Surgery: No Endocrine Surgery: No Eye Surgery: No Genitourinary Surgery: No Gynecologic Surgery: No Insulin Pump: No Joint Replacement: No Oral Surgery: No Pacemaker: No Thoracic Surgery: No Other Surgery: Yes (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) Social History Alcohol Use: No Tobacco Use: No (8 CIGARETTES A DAY/ QUITTING) Substance Use: No Allergies-Medications (Allergen,Severity, Reaction): Coded Allergies: bupropion (Unverified Allergy, Severe, RASH, ITCHING, 11/10/17) chlorpromazine (Unverified Allergy, Severe, Rash, 11/10/17) clopidogrel (Verified Allergy, Unknown, 11/10/17) Reported Meds & Prescriptions Reported Meds & Active Scripts Active Depakene (Valproic Acid) 250 Mg Cap 250 Mg PO Q12HR 30 Days Multiple Vitamin 1 Tab 1 Tab PO DAILY Aspirin 81 Mg Chew 81 Mg CHEW DAILY Reported Trazodone (Trazodone HCl) 50 Mg Tab 50 Mg PO HS Review of Systems Except as stated in HPI: all other systems reviewed are Neg Physical Exam Narrative GENERAL: Well-nourished elderly male patient, very pleasant, talking frequently going off on different story trails, unable to stick with one topic at this point. SKIN: Focused skin assessment warm/dry. HEAD: Atraumatic. Normocephalic. EYES: Pupils equal and round. No scleral icterus. No injection or drainage. ENT: No nasal bleeding or discharge. Mucous membranes pink and moist. NECK: Trachea midline. No JVD. CARDIOVASCULAR: Tachycardic rate and rhythm. No murmur appreciated. RESPIRATORY: No accessory muscle use. Clear to auscultation. Breath sounds equal bilaterally. GASTROINTESTINAL: Abdomen soft, non-tender, nondistended. Hepatic and splenic margins not palpable. MUSCULOSKELETAL: No obvious deformities. No clubbing. No cyanosis. No edema. NEUROLOGICAL: Awake and alert. No obvious cranial nerve deficits. Motor grossly within normal limits. Normal speech. Data Data Last Documented VS Vital Signs Date Time Temp Pulse Resp B/P (MAP) Pulse Ox O2 Delivery O2 Flow Rate FiO2 11/10/17 12:20 96.9 119 20 210/95 (133) 96 Orders Orders Complete Blood Count With Diff (11/10/17 12:43) Comprehensive Metabolic Panel (11/10/17 12:43) Thyroid Stimulating Hormone (11/10/17 12:43) Urinalysis - C+S If Indicated (11/10/17 12:43) Valproic Acid (Depakene) (11/10/17 12:43) Psych Screen (11/10/17 12:43) Drug Screen, Random Urine (11/10/17 12:43) Alcohol (Ethanol) (11/10/17 12:43) Lorazepam (Ativan) (11/10/17 12:45) Admit Order (Ed Use Only) (11/10/17 ) Admit Order (Ed Use Only) (11/10/17 14:30) Aspirin Chew (Aspirin Chew) (11/11/17 09:00) (Nf) Multiple Vitamin (11/11/17 09:00) Labs Laboratory Tests Test 11/10/17 13:05 White Blood Count 7.9 TH/MM3 Red Blood Count 5.38 MIL/MM3 Hemoglobin 16.4 GM/DL Hematocrit 49.0 % Mean Corpuscular Volume 91.0 FL Mean Corpuscular Hemoglobin 30.6 PG Mean Corpuscular Hemoglobin Concent 33.6 % Red Cell Distribution Width 13.0 % Platelet Count 237 TH/MM3 Mean Platelet Volume 7.3 FL Neutrophils (%) (Auto) 62.7 % Lymphocytes (%) (Auto) 24.9 % Monocytes (%) (Auto) 9.4 % Eosinophils (%) (Auto) 2.2 % Basophils (%) (Auto) 0.8 % Neutrophils # (Auto) 5.0 TH/MM3 Lymphocytes # (Auto) 2.0 TH/MM3 Monocytes # (Auto) 0.7 TH/MM3 Eosinophils # (Auto) 0.2 TH/MM3 Basophils # (Auto) 0.1 TH/MM3 CBC Comment DIFF FINAL Differential Comment Urine Color LIGHT-YELLOW Urine Turbidity CLEAR Urine pH 7.0 Urine Specific [place] 1.008 Urine Protein 30 mg/dL Urine Glucose (UA) NEG mg/dL Urine Ketones NEG mg/dL Urine Occult Blood NEG Urine Nitrite NEG Urine Bilirubin NEG Urine Urobilinogen LESS THAN 2.0 MG/DL Urine Leukocyte Esterase NEG Microscopic Urinalysis Comment CULT NOT INDICATED Blood Urea Nitrogen 20 MG/DL Creatinine 1.68 MG/DL Random Glucose 122 MG/DL Total Protein 8.8 GM/DL Albumin 4.1 GM/DL Calcium Level 9.4 MG/DL Alkaline Phosphatase 56 U/L Aspartate Amino Transf (AST/SGOT) 32 U/L Alanine Aminotransferase (ALT/SGPT) 45 U/L Total Bilirubin 0.5 MG/DL Sodium Level 141 MEQ/L Potassium Level 4.3 MEQ/L Chloride Level 106 MEQ/L Carbon Dioxide Level 25.9 MEQ/L Anion Gap 9 MEQ/L Estimat Glomerular Filtration Rate 40 ML/MIN Thyroid Stimulating Hormone 3rd Gen 0.957 uIU/ML Urine Opiates Screen NEG Urine Barbiturates Screen NEG Valproic Acid (Depakene) Level 45 MCG/ML Urine Amphetamines Screen NEG Urine Benzodiazepines Screen NEG Urine Cocaine Screen NEG Urine Cannabinoids Screen NEG Ethyl Alcohol Level LESS THAN 2 MG/DL MDM Medical Decision Making Medical Screen Exam Complete: Yes Emergency Medical Condition: Yes Medical Record Reviewed: Yes Differential Diagnosis Mood disorder versus personality disorder versus adjustment reaction disorder versus venkat versus acute psychosis Narrative Course 82-year-old male presents emergency department for evaluation of venkat and bizarre behavior. Patient appears nontoxic. He is tachycardic. He is speaking very rapidly and unable to stick with one topic. His stories are bizarre nature. Psychiatric workup is initiated. Pending no acute lab abnormality, patient will be medically cleared to undergo psychiatric screening for further evaluation and disposition. Mental health screening discussed with the patient. Psychiatric screen ordered. Laboratory Tests Test 11/10/17 13:05 White Blood Count 7.9 TH/MM3 Red Blood Count 5.38 MIL/MM3 Hemoglobin 16.4 GM/DL Hematocrit 49.0 % Mean Corpuscular Volume 91.0 FL Mean Corpuscular Hemoglobin 30.6 PG Mean Corpuscular Hemoglobin Concent 33.6 % Red Cell Distribution Width 13.0 % Platelet Count 237 TH/MM3 Mean Platelet Volume 7.3 FL Neutrophils (%) (Auto) 62.7 % Lymphocytes (%) (Auto) 24.9 % Monocytes (%) (Auto) 9.4 % Eosinophils (%) (Auto) 2.2 % Basophils (%) (Auto) 0.8 % Neutrophils # (Auto) 5.0 TH/MM3 Lymphocytes # (Auto) 2.0 TH/MM3 Monocytes # (Auto) 0.7 TH/MM3 Eosinophils # (Auto) 0.2 TH/MM3 Basophils # (Auto) 0.1 TH/MM3 CBC Comment DIFF FINAL Differential Comment Urine Color LIGHT-YELLOW Urine Turbidity CLEAR Urine pH 7.0 Urine Specific [place] 1.008 Urine Protein 30 mg/dL Urine Glucose (UA) NEG mg/dL Urine Ketones NEG mg/dL Urine Occult Blood NEG Urine Nitrite NEG Urine Bilirubin NEG Urine Urobilinogen LESS THAN 2.0 MG/DL Urine Leukocyte Esterase NEG Microscopic Urinalysis Comment CULT NOT INDICATED Blood Urea Nitrogen 20 MG/DL Creatinine 1.68 MG/DL Random Glucose 122 MG/DL Total Protein 8.8 GM/DL Albumin 4.1 GM/DL Calcium Level 9.4 MG/DL Alkaline Phosphatase 56 U/L Aspartate Amino Transf (AST/SGOT) 32 U/L Alanine Aminotransferase (ALT/SGPT) 45 U/L Total Bilirubin 0.5 MG/DL Sodium Level 141 MEQ/L Potassium Level 4.3 MEQ/L Chloride Level 106 MEQ/L Carbon Dioxide Level 25.9 MEQ/L Anion Gap 9 MEQ/L Estimat Glomerular Filtration Rate 40 ML/MIN Thyroid Stimulating Hormone 3rd Gen 0.957 uIU/ML Urine Opiates Screen NEG Urine Barbiturates Screen NEG Valproic Acid (Depakene) Level 45 MCG/ML Urine Amphetamines Screen NEG Urine Benzodiazepines Screen NEG Urine Cocaine Screen NEG Urine Cannabinoids Screen NEG Ethyl Alcohol Level LESS THAN 2 MG/DL Pt does have some renal insufficiency as well as subtherapeutic depakote levels. I have discussed the pt with Dr. Greenfield, psychiatrist program paraprofessional. He accepts admission and recommends BA to be placed due to pt's inability to determine for himself if exam is necessary and without it, pt is at risk of harming or neglecting himself. I discussed this with the family and they are in agreement with this plan. Of note, pt's family is concerned that he has mentioned wanting to "be with is girls," meaning his two wives who have . Diagnosis Primary Impression: Bipolar disorder Qualified Codes: F31.12 - Bipolar disorder, current episode manic without psychotic features, moderate Admitting Information Admitting Physician Requests: Admit Condition: Stable Taya Gleason Nov 10, 2017 12:43
[2017-11-10] MEDS ORDERED: TRAZ50TA12 PO (12:45)
[2017-11-10] MEDS ORDERED: LORazepam 1 MG TAB PO ONE (12:45)
[2017-11-10 13:18] LABS: BASOPHIL # 0.1 TH/MM3 (0-0.2); BASOPHIL % 0.8 % (0.0-2.0); EOSINOPHIL # 0.2 TH/MM3 (0-0.4); EOSINOPHIL % 2.2 % (0.0-4.0); HEMOGLOBIN 16.4 GM/DL (13.0-17.0); LYMPH % 24.9 % (9.0-44.0); MEAN CORPUSCULAR HEMOGLOBIN 30.6 PG (27.0-34.0); MEAN CORPUSCULAR HGB CONC 33.6 % (32.0-36.0); MEAN PLATELET VOLUME 7.3 FL (7.0-11.0); MONO % 9.4 % (0.0-8.0); MONOCYTE # 0.7 TH/MM3 (0-0.9); NEUT % 62.7 % (16.0-70.0); PLATELET COUNT 237 TH/MM3 (150-450); RED BLOOD COUNT 5.38 MIL/MM3 (4.50-5.90); WHITE BLOOD COUNT 7.9 TH/MM3 (4.0-11.0)
[2017-11-10 13:33] LABS: BILIRUBIN, URINE NEG (NEG); BLOOD, URINE NEG (NEG); GLUCOSE,URINE NEG (NEG); KETONE, URINE NEG (NEG); NITRITE,URINE NEG (NEG); URINE COLOR LIGHT-YELLOW (YELLW/STRAW); URINE LEUKOCYTE ESTERASE NEG (NEG)
[2017-11-10 13:43] LABS: ALBUMIN 4.1 GM/DL (3.4-5.0); ALT (GPT) 45 U/L (12-78); AST (GOT) 32 U/L (15-37); BICARBONATE 25.9 MEQ/L (21.0-32.0); BLOOD UREA NITROGEN 20 MG/DL (7-18); CALCIUM 9.4 MG/DL (8.5-10.1); CHLORIDE 106 MEQ/L (98-107); CREATININE 1.68 MG/DL (0.60-1.30); GLOMERULAR FILTRATION RATE 40 ML/MIN (>89); GLUCOSE,RANDOM 122 MG/DL (74-106); SODIUM (NA) 141 MEQ/L (136-145)
[2017-11-10 13:52] LABS: ALKALINE PHOSPHATASE 56 U/L (45-117); TOTAL BILIRUBIN ADULT 0.5 MG/DL (0.2-1.0); TOTAL PROTEIN 8.8 GM/DL (6.4-8.2)
[2017-11-10] MEDS ORDERED: MAGNESIUM HYDROXIDE SUSP 30 ML CUP PO PRN (14:45)
[2017-11-10] MEDS ORDERED: ALUMINUM/MAGNESIUM/SIMETH 30 ML CUP PO PRN (14:45)
[2017-11-10] MEDS ORDERED: NICOTINE 21 MG/24 HR PATCH T-DERMAL PRN (14:45)
[2017-11-10] MEDS ORDERED: cloNIDine HCL 0.1 MG TAB PO PRN (14:45)
[2017-11-10 15:21] VITALS: BP 168/110; PULSE 64; RESP 18; O2SAT 97
[2017-11-10 15:23] VITALS: BP 179/82; PULSE 67; RESP 18; O2SAT 97
[2017-11-10 16:21] VITALS: BP 170/80; PULSE 100; RESP 20
[2017-11-10 16:40] VITALS: BP 185/92; PULSE 85
[2017-11-10] MEDS: ACETAMINOPHEN 325 MG TAB PO PRN (16:42)
[2017-11-11 05:33] VITALS: BP 157/81; PULSE 92; RESP 18; TEMP 97.3; O2SAT 98
[2017-11-11] MEDS: ASPIRIN 81 MG CHEW TAB CHEW SCH (08:25)
[2017-11-11] MEDS: MULTIVITAMIN TAB PO SCH (08:25)
[2017-11-11] MEDS ORDERED: cloNIDine HCL 0.1 MG TAB PO PRN (10:30)
[2017-11-11] MEDS ORDERED: amLODIPine BESYLATE 5 MG TAB PO ONE (10:30)
--- NOTE | 2017-11-11 10:31 | EKG ---
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
[2017-11-11] MEDS ORDERED: hydrOXYzine HCL 50 MG TAB PO PRN (15:00)
--- NOTE | 2017-11-11 15:16 | HHI.HP ---
Provisional Diagnosis Admission Date Nov 10, 2017 at 14:31 [place] I. Bipolar disorder mixed most recent episode mixed moderate without psychosis Certification of Person's Competence To Provide Express and Informed Consent I have personally examined Corey AppiahJr , a person being served at [facility] on, Nov 11, 2017 15:02. Express and informed consent means consent voluntarily given in writing, by a competent person, after sufficient explanation and disclosure of the subject matter involved to enable the person to make a knowing and willful decision without any element of force, fraud, deceit, duress, or other form of constraint or coercion. This person is 18 years of age or older, is not now known to be incompetent to consent to treatment with a guardian advocate, and does not have a health care surrogate or proxy currently making medical treatment decisions. I have found this person to be one of the following: [] Competent to provide express and informed consent, as defined above, for voluntary admission to this facility and is competent to provide express and informed consent for treatment. He/she has the consistent capacity to make well reasoned, willful, and knowing decisions concerning his or her medical or mental health treatment. The person fully and consistently understands the purpose of the admission for examination/placement and is fully capable of personally exercising all rights assured [place] Incompetent to provide express and informed consent to voluntary admission, and this is incompetent to provide express and informed consent to treatment. The person must be transferred to involuntary status and a petition for a guardian advocate filed with the Circuit Court. []xxx Refusing to provide express and informed consent to voluntary admission but is competent to provide express and informed consent for treatment. The person must be discharged or transferred to involuntary status. Form shall be completed within 24 hours of a person's arrival at the receiving facility and filed in the clinical record of each person: 1. Admitted on a voluntary basis 2. Permitted to provide express and informed consent to his/her own treatment 3. Allowed to transfer from involuntary to voluntary status 4. Prior to permitting a person to consent to his or her own treatment after having been previously found incompetent to consent to treatment. History of Present Illness Capacity: Lacks Capacity (patient lacks capacity to sign for hospitalization, patient has capacity to sign for medication) HPI Patient is an 82-year-old white male who comes here under Coleman act signed by Jorge A Irving M.D. dated November 10 at 1435 hrs. to document reviewed and essentially is stating subtherapeutic Depakote bizarre behavior of inhibition stating he wants to be with his . Patient seen screened in the ED urine toxicology negative, blood alcohol level negative, serum Depakote level XLV. Of interest patient was recently hospitalized here for lithium toxicity. He has been diagnosed bipolar disorder for many years, from the mid 1960s, has been him lithium for that period of time with good results. Until he became little toxic. The lithium was discontinued he was placed on Depakote 250 mg daily. This is led to some increased bizarre behaviors. Says he lives by himself with pet cat in the trailer. He becomes somewhat tearful when speaking of his . He denies voices or visions with this. Denies any active suicidal intent or plan. But he does realize she is spiraling somewhat out of control right now he is vague about racing thoughts though his speech is rapid and pressured. He is somewhat grandiose and labile with poor attention and concentration. He denies any alcohol or drug use related to this. He denies any physical or sexual abuse. States is dense vague mental health issues in his family of origin. At this time patient does meet criteria for acute inpatient psychiatric hospitalization on the Coleman act I'll do first opinion request second opinion. I feel he has capacity to sign for medications we'll continue his medications per the med reconciliation. Will recheck patient 's Depakote level in 2 days. Hopeless can be a fairly short stay and return to us on perhaps with some home health care will also the hospitalist consult with us Review of Systems Constitutional: DENIES: Diaphoretic episodes, Fatigue, Fever, Weight gain, Weight loss, Chills, Dizziness, Change in appetite, Night Sweats Endocrine: DENIES: Heat/cold intolerance, Polydipsia, Polyuria, Polyphagia Eyes: DENIES: Blurred vision, Diplopia, Eye inflammation, Eye pain, Vision loss , Photosensitivity, Double Vision Ears, nose, mouth, throat: DENIES: Tinnitus, Hearing loss, Vertigo, Nasal discharge, Oral lesions, Throat pain, Hoarseness, Ear Pain, Running Nose, Epistaxis, Sinus Pain, Toothache, Odynophagia Respiratory: DENIES: Apneas, Cough, Snoring, Wheezing, Hemoptysis, Sputum production, Shortness of breath Cardiovascular: DENIES: Chest pain, Palpitations, Syncope, Dyspnea on Exertion , PND, Lower Extremity Edema, Orthopnea, Claudication Gastrointestinal: DENIES: Abdominal pain, Black stools, Bloody stools, Constipation, Diarrhea, Nausea, Vomiting, Difficulty Swallowing, Anorexia Genitourinary: DENIES: Sexual dysfunction, Urinary frequency, Urinary incontinence, Urgency, Hematuria, Dysuria, Nocturia, Penile Discharge, Testicular Pain, Testicular Swelling Musculoskeletal: DENIES: Joint pain, Muscle aches, Stiffness, Joint Swelling, Back pain, Neck pain Integumentary: DENIES: Abnormal pigmentation, Nail changes, Pruritus, Rash Hematologic/lymphatic: DENIES: Bruising, Lymphadenopathy Immunologic/allergic: DENIES: Eczema, Urticaria Neurologic: DENIES: Abnormal gait, Headache, Localized weakness, Paresthesias, Seizures, Speech Problems, Tremor, Poor Balance Psychiatric: COMPLAINS OF: Mood changes, Depression Past Psych History Psychological trauma history Patient made vague reference Violence risk - others (6 mos) Low Violence risk - self (6 mos) Low to moderate Substance Abuse History Drugs/Alcohol past 12 months Patient denies Past Family Social History Coded Allergies: bupropion (Unverified Allergy, Severe, RASH, ITCHING, 11/10/17) chlorpromazine (Unverified Allergy, Severe, Rash, 11/10/17) clopidogrel (Verified Allergy, Unknown, 11/10/17) Active Scripts Valproic Acid (Depakene) 250 Mg Cap, 250 MG PO Q12HR for BIPOdis for 30 Days, CAP Prov:Hermann Martinez MD 09/23/17 Multiple Vitamin (Multiple Vitamin) 1 Tab, 1 TAB PO DAILY for Nutritional Supplement, #30 TAB 1 Refill Prov:Denisse Cook MD 06/25/16 Aspirin (Aspirin) 81 Mg Chew, 81 MG CHEW DAILY, #30 TAB 1 Refill Prov:Denisse Cook MD 06/25/16 Reported Medications Trazodone (Trazodone) 50 Mg Tab, 50 MG PO HS for Control Depression, TAB 0 Refills 11/10/17 Discontinued Scripts Tamsulosin (Flomax) 0.4 Mg Cap, 0.4 MG PO DAILY for Manage Prostate Problems, # 30 CAP 1 Refill Prov:Denisse Cook MD 06/25/16 Pravastatin (Pravastatin) 10 Mg Tab, 1 TAB PO HS for Cholesterol Management, # 30 TAB 1 Refill Prov:Denisse Cook MD 06/25/16 Current Medications Medications (Trade) Dose Ordered Sig/Lavinia Route Start Time Stop Time Status Last Admin (Aspirin Chew) 81 mg DAILY CHEW 11/11/17 09:00 11/11/17 08:25 (Theragran) 1 tab DAILY PO 11/11/17 09:00 11/11/17 08:25 (Tylenol) 650 mg Q4H PRN PO 11/10/17 14:45 11/10/17 16:42 (Milk Of Magnesia Liq) 30 ml DAILY PRN PO 11/10/17 14:45 (Mag-Al Plus Susp Liq) 30 ml Q6H PRN PO 11/10/17 14:45 (Habitrol 21 Mg Patch.24 Hr) 1 patch DAILY PRN T-DERMAL 11/10/17 14:45 (Norvasc) 5 mg DAILY PO 11/12/17 09:00 (Catapres) 0.1 mg Q6H PRN PO 11/11/17 10:30 Family Psych History Patient made vague reference to mental health issues and family origin Social History Patient from second still remains depressed and grieving over this. He is adult children that he states he is not close to Patient's Strengths (min. 2) Patient verbal labile axis health care cooperative Physical Exam Patient medically cleared in ED at the present time patient sitting quietly in day room is in no acute distress, he is in no respiratory distress, no complaints of abdominal pain. Patient moving all 4 extremities without difficulty Vital Signs Vital Signs Date Time Temp Pulse Resp B/P (MAP) Pulse Ox O2 Delivery O2 Flow Rate FiO2 11/11/17 05:33 97.3 92 18 157/81 (106) 98 11/10/17 15:23 Room Air I/O 11/11/17 11/11/17 11/12/17 08:00 16:00 00:00 Intake Total 120 ml 120 ml Balance 120 ml 120 ml Mental Status Examination Appearance: Appropriate Consciousness: Alert Orientation: x4 Motor Activity: Normal gait Speech: Unremarkable Language: Adequate Fund of Knowledge: Adequate Attention and Concentration: Other (fair) Memory: Impaired Mood: Other (euthymic to mildly dysphoric) Affect: Other (slight increased range and intensity) Thought Process & Associations: Intact Thought Content: Appropriate Hallucination Type: None Delusion Type: None Suicidal Ideation: Yes (vague) Suicidal Plan: No Suicidal Intention: Yes (vague) Homicidal Ideation: No Homicidal Plan: No Homicidal Intention: No Insight: Fair Judgment: Impulsive Assessment & Plan Problem List: (1) Bipolar disorder ICD Codes: F31.9 - Bipolar disorder, unspecified Status: Chronic Assessment & Plan Estimated LOS: 5-7 days at this time patient meets criteria for involuntary psychiatric hospitalization under the Coleman act I'll do first opinion request second opinion. I feel has capacity Cyphers medications. Will continue medications at the present time per the med reconciliation repeat Depakote blood level in 2 days. We will have hospitalist home service consultant less. Discharge Planning To be determined Request HC Surrog/Guard Advoc?: No Problem Qualifiers (1) Bipolar disorder: Qualified Codes: F31.62 - Bipolar disorder, current episode mixed, moderate Forrest Kirk MD Nov 11, 2017 15:16
--- NOTE | 2017-11-11 15:52 | PD.CONS ---
HPI Service [facility] Hospitalists Consult Requested By Psychiatric services Reason for Consult Medical management Primary Care Physician Parveen Kerr MD Diagnoses: History of Present Illness This is a 82-year-old male with past medical history significant for hypertension, dyslipidemia, bipolar disorder, coronary artery disease status post cardiac stenting 3, BPH, history of alcohol abuse and a history of lithium toxicity who is admitted to inpatient psychiatric unit under Coleman act due to bizarre behavior stating he wants to be with his . Reportedly, patient is becoming more manic and not sleeping. Due to patient's recent admission for lithium toxicity, lithium was discontinued and patient was placed on Depakote 250 mg daily. Hospitalist services of consulted for medical management. Patient seen and examined. Patient states that he has salt coming out of his eyes. He denies any other medical complaints. He denies any fever or chills. He denies any chest pain or dyspnea. He denies any nausea, vomiting or abdominal pain. He denies any urinary difficulties, constipation or hematochezia. Review of Systems Except as stated in HPI: all other systems reviewed are Neg Past Family Social History Allergies: Coded Allergies: bupropion (Unverified Allergy, Severe, RASH, ITCHING, 11/10/17) chlorpromazine (Unverified Allergy, Severe, Rash, 11/10/17) clopidogrel (Verified Allergy, Unknown, 11/10/17) Past Medical History Bipolar disorder CAD with stenting 3 Hypertension Dyslipidemia Hyperlipidemia History of lithium toxicity Alcohol abuse Past Surgical History Cardiac stenting x 3 Tonsillectomy Vasectomy Reported Medications Depakene (Valproic Acid) 250 Mg Cap 250 Mg PO Q12HR 30 Days Multiple Vitamin 1 Tab 1 Tab PO DAILY Aspirin 81 Mg Chew 81 Mg CHEW DAILY Trazodone (Trazodone HCl) 50 Mg Tab 50 Mg PO HS Active Ordered Medications Current Medications Medications (Trade) Dose Ordered Sig/Lavinia Route Start Time Stop Time Status Last Admin (Aspirin Chew) 81 mg DAILY CHEW 11/11/17 09:00 11/11/17 08:25 (Theragran) 1 tab DAILY PO 11/11/17 09:00 11/11/17 08:25 (Tylenol) 650 mg Q4H PRN PO 11/10/17 14:45 11/10/17 16:42 (Milk Of Magnesia Liq) 30 ml DAILY PRN PO 11/10/17 14:45 (Mag-Al Plus Susp Liq) 30 ml Q6H PRN PO 11/10/17 14:45 (Habitrol 21 Mg Patch.24 Hr) 1 patch DAILY PRN T-DERMAL 11/10/17 14:45 (Norvasc) 5 mg DAILY PO 11/12/17 09:00 (Catapres) 0.1 mg Q6H PRN PO 11/11/17 10:30 (Benadryl) 50 mg HS PRN PO 11/11/17 15:00 (Atarax) 50 mg Q6H PRN PO 11/11/17 15:00 (Desyrel) 50 mg HS PO 11/11/17 21:00 (Depakene) 250 mg Q12HR PO 11/11/17 21:00 Family History Mother, DM Social History Patient has a history of previous tobacco use smoking 3 packs per day for 30 years but quit in 1990. He denies any alcohol use or illicit drug use. Physical Exam Vital Signs Vital Signs Date Time Temp Pulse Resp B/P (MAP) Pulse Ox O2 Delivery O2 Flow Rate FiO2 11/11/17 05:33 97.3 92 18 157/81 (106) 98 11/10/17 16:40 85 185/92 (123) 11/10/17 16:21 100 20 170/80 (110) Physical Exam GENERAL: This is a well-nourished, well-developed elderly male patient , in no apparent distress. Appears younger than his stated age. Awake and alert. SKIN: No rashes, ecchymoses or lesions. Cool and dry. HEAD: Atraumatic. Normocephalic. No temporal or scalp tenderness. EYES: Pupils equal round and reactive. Extraocular motions intact. No scleral icterus. No injection or drainage. ENT: Nose without bleeding or purulent drainage. Throat without erythema, tonsillar hypertrophy or exudate. Uvula midline. Airway patent. NECK: Trachea midline. No lymphadenopathy. Supple, nontender, no meningeal signs. CARDIOVASCULAR: Regular rate and rhythm without murmurs, gallops, or rubs. RESPIRATORY: Clear to auscultation. Breath sounds equal bilaterally. No wheezes , rales, or rhonchi. GASTROINTESTINAL: Abdomen soft, non-tender, nondistended. No hepato-splenomegaly , or palpable masses. No guarding. MUSCULOSKELETAL: Extremities without clubbing, cyanosis, or edema. No joint tenderness, effusion, or edema noted. No calf tenderness. NEUROLOGICAL: Awake and alert. Cranial nerves II through XII grossly intact. Motor and sensory grossly within normal limits. No focal neurologic finding appreciated. Normal speech. Result Diagram: 11/10/17 1305 11/10/17 1305 Assessment and Plan Assessment and Plan 82-year-old male with past medical history significant for hypertension, dyslipidemia, bipolar disorder, coronary artery disease status post cardiac stenting 3, BPH, CKD, history of alcohol abuse and a history of lithium toxicity who is admitted to inpatient psychiatric unit under Coleman act due to bizarre behavior stating he wants to be with his . Hospitalist services have been consulted for medical management. 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 We'll continue to follow with you. Discussed Condition With Patient, nursing staff, Marley Palacios Nov 11, 2017 15:52
[2017-11-11 17:37] VITALS: BP 136/67; PULSE 103; RESP 16; O2SAT 98
[2017-11-11 18:48] LABS: BICARBONATE 26.6 MEQ/L (21.0-32.0); BLOOD UREA NITROGEN 20 MG/DL (7-18); CALCIUM 9.9 MG/DL (8.5-10.1); CHLORIDE 104 MEQ/L (98-107); GLOMERULAR FILTRATION RATE 36 ML/MIN (>89); GLUCOSE,RANDOM 180 MG/DL (74-106); SODIUM (NA) 140 MEQ/L (136-145)
[2017-11-11 18:49] LABS: CHOLESTEROL 158 MG/DL (120-200); TRIGLYCERIDES 158 MG/DL (42-150)
[2017-11-11 18:51] LABS: CHOLESTEROL/ HDL RATIO 4.87 RATIO; HDL CHOLESTEROL 32.4 MG/DL (40.0-60.0); LDL CHOLESTEROL 94 MG/DL (0-99)
[2017-11-11] MEDS: VALPROIC ACID 250 MG CAP PO SCH (20:43)
[2017-11-11] MEDS: traZODone HCL 50 MG TAB PO SCH (20:43)
--- NOTE | 2017-11-11 21:33 | EKG ---
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 ABNORMAL ECG PREVIOUS TRACING : 11/10/2017 15.30 DOCTOR: Jana Ordonez Interpretating Date/Time 11/11/2017 21:31:52
[2017-11-11 22:00] LABS: HEMOGLOBIN A1C 5.3 % (4.3-6.0)
[2017-11-12 06:24] VITALS: BP 156/76; PULSE 83; RESP 19; TEMP 98.1; O2SAT 99
[2017-11-12] MEDS ORDERED: amLODIPine BESYLATE 5 MG TAB PO SCH (09:00)
[2017-11-12] MEDS: MULTIVITAMIN TAB PO SCH (09:54)
[2017-11-12] MEDS: VALPROIC ACID 250 MG CAP PO SCH (09:54)
[2017-11-12] MEDS: ASPIRIN 81 MG CHEW TAB CHEW SCH (09:54)
--- NOTE | 2017-11-12 10:54 | HHI.PYPN ---
Subjective Remarks Patient seen in [place] with nurse Cherelle, Counselor Carolin, chart review, patient compliant medications, patient discussed with nurse. Patient continues intense with pressured speech somewhat grandiose. He has some insight into his need to slow down more. Will increase Depakote to 50 mg a.m. 500 mg at bedtime Review of Systems Except as stated in HPI: all other systems reviewed are Neg Mental Status Examination Appearance: Appropriate Consciousness: Alert Orientation: x4 Motor Activity: Normal gait Speech: Unremarkable Language: Adequate Fund of Knowledge: Adequate Attention and Concentration: Other (fair) Memory: Impaired Mood: Other (euthymic to mildly dysphoric) Affect: Other (slight increased range and intensity) Thought Process & Associations: Intact Thought Content: Appropriate Hallucination Type: None Delusion Type: None Suicidal Ideation: Yes (vague) Suicidal Plan: No Suicidal Intention: Yes (vague) Homicidal Ideation: No Homicidal Plan: No Homicidal Intention: No Insight: Fair Judgment: Impulsive Results Labs Test 11/11/17 18:06 Blood Urea Nitrogen 20 MG/DL Creatinine 1.80 MG/DL Random Glucose 180 MG/DL Calcium Level 9.9 MG/DL Sodium Level 140 MEQ/L Potassium Level 3.7 MEQ/L Chloride Level 104 MEQ/L Carbon Dioxide Level 26.6 MEQ/L Anion Gap 9 MEQ/L Estimat Glomerular Filtration Rate 36 ML/MIN Hemoglobin A1c 5.3 % Triglycerides Level 158 MG/DL Cholesterol Level 158 MG/DL LDL Cholesterol 94 MG/DL HDL Cholesterol 32.4 MG/DL Cholesterol/HDL Ratio 4.87 RATIO Vitals/IOs Vital Signs Date Time Temp Pulse Resp B/P (MAP) Pulse Ox O2 Delivery O2 Flow Rate FiO2 11/12/17 06:24 98.1 83 19 156/76 (102) 99 11/10/17 15:23 Room Air Assessment & Plan Problem List: (1) Bipolar disorder ICD Codes: F31.9 - Bipolar disorder, unspecified Status: Chronic Assessment & Plan Estimated LOS: days patient continues somewhat manic with pressured speech, some insight into his continued venkat. See medication adjustment above Justification for Cont. Inpt. At this time patient will decompensate of placed in a lower level of care Discharge Planning To be determined Request HC Surrog/Guard Advoc?: No Problem Qualifiers (1) Bipolar disorder: Qualified Codes: F31.62 - Bipolar disorder, current episode mixed, moderate Forrest Kirk MD Nov 12, 2017 10:54
--- NOTE | 2017-11-12 12:24 | PD.PSY.CON ---
Provisional Diagnosis Admission Date Nov 10, 2017 at 14:31 [place]. Bipolar disorder mixed most recent episode mixed moderate without psychosis History of Present Illness Service Psychiatry Consult Requested By Dr. Kirk Reason for Consult Second opinion Primary Care Physician Parveen Kerr MD HPI Patient is an 82-year-old white male who comes here under [place] act signed by Jorge A Irving M.D. dated November 10 at 1435 hrs. to document reviewed and essentially is stating subtherapeutic Depakote bizarre behavior of inhibition stating he wants to be with his . Patient seen screened in the ED urine toxicology negative, blood alcohol level negative, serum Depakote level XLV. Of interest patient was recently hospitalized here for lithium toxicity. He has been diagnosed bipolar disorder for many years, from the mid 1960s, has been him lithium for that period of time with good results. Until he became little toxic. The lithium was discontinued he was placed on Depakote 250 mg daily. This is led to some increased bizarre behaviors. Says he lives by himself with pet cat in the trailer. He becomes somewhat tearful when speaking of his . He denies voices or visions with this. Denies any active suicidal intent or plan. But he does realize she is spiraling somewhat out of control right now he is vague about racing thoughts though his speech is rapid and pressured. He is somewhat grandiose and labile with poor attention and concentration. He denies any alcohol or drug use related to this. He denies any physical or sexual abuse. States is dense vague mental health issues in his family of origin. At this time patient does meet criteria for acute inpatient psychiatric hospitalization on the act I'll do first opinion request second opinion. I feel he has capacity to sign for medications we'll continue his medications per the med reconciliation. Will recheck patient 's Depakote level in 2 days. Hopeless can be a fairly short stay and return to us on perhaps with some home health care will also the hospitalist consult with us The patient is a 82 years old man, domiciled alone in [facility], retired , single, with psychiatric history of bipolar disorder, multiple psychiatric hospitalizations, brought to the hospital on the act because the patient has been reportedly noncompliant with medications, endorsing suicidal ideation, and displaying manic behavior. Patient was consulted to me for second opinion. On psychiatric evaluation today the patient is talkative, with rapid speech, at times disorganized, making bizarre statements. He reports good mood, good level of energy, he has an elevated affect and mood, denies suicidal or homicidal ideation, he denies visual and auditory hallucinations. Patient is fully oriented 3, good attention span, no gross cognitive impairment present. Review of Systems Except as stated in HPI: all other systems reviewed are Neg Past Family Social History Coded Allergies: bupropion (Unverified Allergy, Severe, RASH, ITCHING, 11/10/17) chlorpromazine (Unverified Allergy, Severe, Rash, 11/10/17) clopidogrel (Verified Allergy, Unknown, 11/10/17) Active Scripts Valproic Acid (Depakene) 250 Mg Cap, 250 MG PO Q12HR for BIPOdis for 30 Days, CAP Prov:Hermann Martinez MD 09/23/17 Multiple Vitamin (Multiple Vitamin) 1 Tab, 1 TAB PO DAILY for Nutritional Supplement, #30 TAB 1 Refill Prov:Denisse Cook MD 06/25/16 Aspirin (Aspirin) 81 Mg Chew, 81 MG CHEW DAILY, #30 TAB 1 Refill Prov:Denisse Cook MD 06/25/16 Reported Medications Trazodone (Trazodone) 50 Mg Tab, 50 MG PO HS for Control Depression, TAB 0 Refills 11/10/17 Discontinued Scripts Tamsulosin (Flomax) 0.4 Mg Cap, 0.4 MG PO DAILY for Manage Prostate Problems, # 30 CAP 1 Refill Prov:Denisse Cook MD 06/25/16 Pravastatin (Pravastatin) 10 Mg Tab, 1 TAB PO HS for Cholesterol Management, # 30 TAB 1 Refill Prov:Denisse Cook MD 06/25/16 Current Medications Medications (Trade) Dose Ordered Sig/Lavinia Route Start Time Stop Time Status Last Admin (Aspirin Chew) 81 mg DAILY CHEW 11/11/17 09:00 11/12/17 09:54 (Theragran) 1 tab DAILY PO 11/11/17 09:00 11/12/17 09:54 (Tylenol) 650 mg Q4H PRN PO 11/10/17 14:45 11/10/17 16:42 (Milk Of Magnesia Liq) 30 ml DAILY PRN PO 11/10/17 14:45 (Mag-Al Plus Susp Liq) 30 ml Q6H PRN PO 11/10/17 14:45 (Habitrol 21 Mg Patch.24 Hr) 1 patch DAILY PRN T-DERMAL 11/10/17 14:45 (Norvasc) 5 mg DAILY PO 11/12/17 09:00 11/12/17 09:54 (Catapres) 0.1 mg Q6H PRN PO 11/11/17 10:30 (Benadryl) 50 mg HS PRN PO 11/11/17 15:00 (Atarax) 50 mg Q6H PRN PO 11/11/17 15:00 (Desyrel) 50 mg HS PO 11/11/17 21:00 11/11/17 20:43 (Depakene) 250 mg DAILY PO 11/13/17 09:00 (Depakote Er) 500 mg HS PO 11/12/17 21:00 Patient's Strengths (min. 2) Patient verbal labile axis health care cooperative Physical Exam Vital Signs Vital Signs Date Time Temp Pulse Resp B/P (MAP) Pulse Ox O2 Delivery O2 Flow Rate FiO2 11/12/17 06:24 98.1 83 19 156/76 (102) 99 11/10/17 15:23 Room Air I/O 11/12/17 11/12/17 11/13/17 08:00 16:00 00:00 Intake Total 240 ml Balance 240 ml Lab Results Test 11/11/17 18:06 Blood Urea Nitrogen 20 MG/DL Creatinine 1.80 MG/DL Random Glucose 180 MG/DL Calcium Level 9.9 MG/DL Sodium Level 140 MEQ/L Potassium Level 3.7 MEQ/L Chloride Level 104 MEQ/L Carbon Dioxide Level 26.6 MEQ/L Anion Gap 9 MEQ/L Estimat Glomerular Filtration Rate 36 ML/MIN Hemoglobin A1c 5.3 % Triglycerides Level 158 MG/DL Cholesterol Level 158 MG/DL LDL Cholesterol 94 MG/DL HDL Cholesterol 32.4 MG/DL Cholesterol/HDL Ratio 4.87 RATIO Mental Status Examination Appearance: Appropriate Consciousness: Alert Orientation: x4 Motor Activity: Normal gait Speech: Unremarkable Language: Adequate Fund of Knowledge: Adequate Attention and Concentration: Other (fair) Memory: Impaired Mood: Other (euthymic to mildly dysphoric) Affect: Other (slight increased range and intensity) Thought Process & Associations: Intact Thought Content: Appropriate Hallucination Type: None Delusion Type: None Suicidal Ideation: Yes (vague) Suicidal Plan: No Suicidal Intention: Yes (vague) Homicidal Ideation: No Homicidal Plan: No Homicidal Intention: No Insight: Fair Judgment: Impulsive Assessment & Plan Problem List: (1) Bipolar disorder ICD Codes: F31.9 - Bipolar disorder, unspecified Status: Chronic Assessment & Plan: Patient was examined and seen for second opinion. Documentation reviewed. I agree and concur with Dr. Kirk's assessment and plan. Assessment & Plan Estimated LOS: days Request HC Surrog/Guard Advoc?: No Problem Qualifiers (1) Bipolar disorder: Qualified Codes: F31.62 - Bipolar disorder, current episode mixed, moderate Heriberto Arias MD Nov 12, 2017 12:24
--- NOTE | 2017-11-12 13:37 | HHI.PR ---
Subjective Remarks Follow-up visit for hypertension, and CKD. Patient seen and examined today in the day room with nurse at bedside he repots he is doing well. Complains of dry mouth, dry eyes, believes it may be related to pollen. Was using OTC eye drops at home with little relief. He also states that he was voiding frequently at home and had an upcoming appointment with urologist, but did not get to be seen prior to coming to [place]. He denies any frequency now, dysuria, fevers, chills , nausea, vomiting, diarrhea, cough, SOB, or chest pains. Nurse repots that patient did urinate on the floor overnight. Objective Vitals Vital Signs Date Time Temp Pulse Resp B/P (MAP) Pulse Ox O2 Delivery O2 Flow Rate FiO2 11/12/17 06:24 98.1 83 19 156/76 (102) 99 11/11/17 17:37 103 16 136/67 (90) 98 I/O 11/11/17 11/11/17 11/11/17 11/12/17 11/12/17 11/12/17 07:00 15:00 23:00 07:00 15:00 23:00 Intake Total 240 ml 360 ml 240 ml Balance 240 ml 360 ml 240 ml Intake Oral 240 ml 360 ml 240 ml # Voids 1 3 Result Diagram: 11/10/17 1305 11/11/17 1806 Objective Remarks GENERAL: This is a well-nourished, well-developed elderly male patient , in no apparent distress. SKIN: Cool and dry. HEAD: Atraumatic. Normocephalic. EYES: Pupils equal round and reactive. No scleral icterus. No injection or drainage. ENT: Nose without bleeding or purulent drainage. Airway patent. NECK: Trachea midline. CARDIOVASCULAR: Regular rate and rhythm without murmurs, gallops, or rubs. RESPIRATORY: Clear to auscultation. Breath sounds equal bilaterally. No wheezes , rales, or rhonchi. GASTROINTESTINAL: Abdomen soft, non-tender, nondistended. No guarding. MUSCULOSKELETAL: Extremities without clubbing, cyanosis, or edema. No joint tenderness, effusion, or edema noted. NEUROLOGICAL: Awake and alert. Cranial nerves grossly intact. Motor and sensory grossly within normal limits. No focal neurologic finding appreciated. Normal speech. A/P Assessment and Plan 82-year-old male with past medical history significant for hypertension, dyslipidemia, bipolar disorder, coronary artery disease status post cardiac stenting 3, BPH, CKD, history of alcohol abuse and a history of lithium toxicity who is admitted to inpatient psychiatric unit under Coleman act due to bizarre behavior stating he wants to be with his . Hospitalist services have been consulted for medical management. 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 Kurt Gage Nov 12, 2017 13:37
[2017-11-12] MEDS ORDERED: amLODIPine BESYLATE 5 MG TAB PO ONE (14:00)
[2017-11-12] MEDS ORDERED: PILL SPLITTER OTHER PRN (14:30)
[2017-11-12 17:20] VITALS: BP 169/75; PULSE 96; RESP 18; TEMP 98.6; O2SAT 96
[2017-11-12] MEDS: traZODone HCL 50 MG TAB PO SCH (20:50)
[2017-11-12] MEDS: DIVALPROEX SODIUM E.R. 500 MG TAB PO SCH (20:50)
[2017-11-13 06:26] VITALS: BP 143/66; PULSE 60; RESP 16; TEMP 97.4; O2SAT 98
[2017-11-13] MEDS: MULTIVITAMIN TAB PO SCH (09:10)
[2017-11-13] MEDS: LORATADINE 10 MG TAB PO SCH (09:11)
[2017-11-13] MEDS: ASPIRIN 81 MG CHEW TAB CHEW SCH (09:11)
[2017-11-13] MEDS: VALPROIC ACID 250 MG CAP PO SCH (09:11)
--- NOTE | 2017-11-13 09:41 | HHI.PYPN ---
Subjective Remarks Patient seen in day room with nurse Oden, chart review, patient discussed with nurse. His continue some rapid pressured speech though somewhat softer, still mildly intrusive, mildly grandiose. However he does acknowledge that he feels she would be better served an [place] trying to return to his manufactured home. He denies suicidality homicidality voices or visions. This time I feel patient has capacity to sign voluntary, will lift Coleman act allow patient to sign voluntary. We will start working with counselor related to placement issues Review of Systems Except as stated in HPI: all other systems reviewed are Neg Mental Status Examination Appearance: Appropriate Consciousness: Alert Orientation: x4 Motor Activity: Normal gait Speech: Unremarkable Language: Adequate Fund of Knowledge: Adequate Attention and Concentration: Other (fair) Memory: Impaired Mood: Other (euthymic to mildly dysphoric) Affect: Other (slight increased range and intensity) Thought Process & Associations: Intact Thought Content: Appropriate Hallucination Type: None Delusion Type: None Suicidal Ideation: Yes (vague) Suicidal Plan: No Suicidal Intention: Yes (vague) Homicidal Ideation: No Homicidal Plan: No Homicidal Intention: No Insight: Fair Judgment: Impulsive Results Vitals/IOs Vital Signs Date Time Temp Pulse Resp B/P (MAP) Pulse Ox O2 Delivery O2 Flow Rate FiO2 11/13/17 06:26 97.4 60 16 143/66 (91) 98 11/10/17 15:23 Room Air Intake and Output 11/13/17 11/13/17 11/14/17 08:00 16:00 00:00 Intake Total 240 ml Balance 240 ml Assessment & Plan Problem List: (1) Bipolar disorder ICD Codes: F31.9 - Bipolar disorder, unspecified Status: Chronic Assessment & Plan Estimated LOS: days patient's mixed behaviors are softening, is showing some insight into his need for appropriate placement. Will lift Coleman act allow patient to sign voluntary Justification for Cont. Inpt. At this time patient would decompensated placed in the lower level of care Discharge Planning Will work with patient to explore placement issues perhaps to an [facility] her custodial facility Request HC Surrog/Guard Advoc?: No Problem Qualifiers (1) Bipolar disorder: Qualified Codes: F31.62 - Bipolar disorder, current episode mixed, moderate Forrest Kirk MD Nov 13, 2017 09:41
--- NOTE | 2017-11-13 11:27 | HHI.PR ---
Subjective Remarks Follow-up visit for hypertension, and CKD. Patient seen and examined in the day room. He reports feeling well today and denies any eye complaints today. He denies any fevers, chills, nausea, vomiting or diarrhea. He repots that the reason why he has allergies is because the air filters are not changed. He does report some constipation and states it has been about 2 days since his last BM, denies any abdominal pain. Objective Vitals Vital Signs Date Time Temp Pulse Resp B/P (MAP) Pulse Ox O2 Delivery O2 Flow Rate FiO2 11/13/17 06:26 97.4 60 16 143/66 (91) 98 11/12/17 17:20 98.6 96 18 169/75 (106) 96 I/O 11/12/17 11/12/17 11/12/17 11/13/17 11/13/17 11/13/17 07:00 15:00 23:00 07:00 15:00 23:00 Intake Total 1140 ml 600 ml 240 ml 360 ml Balance 1140 ml 600 ml 240 ml 360 ml Intake Oral 1140 ml 600 ml 240 ml 360 ml # Voids 3 4 1 3 Result Diagram: 11/10/17 1305 11/11/17 1806 Objective Remarks GENERAL: This is a well-nourished, well-developed elderly male patient , in no apparent distress. SKIN: Cool and dry. HEAD: Atraumatic. Normocephalic. EYES: Pupils equal round and reactive. No scleral icterus. No injection or drainage. ENT: Nose without bleeding or purulent drainage. Airway patent. NECK: Trachea midline. CARDIOVASCULAR: Regular rate and rhythm without murmurs, gallops, or rubs. RESPIRATORY: Clear to auscultation. Breath sounds equal bilaterally. No wheezes , rales, or rhonchi. GASTROINTESTINAL: Abdomen soft, non-tender, nondistended. No guarding. MUSCULOSKELETAL: Extremities without clubbing, cyanosis, or edema. No joint tenderness, effusion, or edema noted. NEUROLOGICAL: Awake and alert. Cranial nerves grossly intact. Motor and sensory grossly within normal limits. No focal neurologic finding appreciated. Normal speech. A/P Assessment and Plan 82-year-old male with past medical history significant for hypertension, dyslipidemia, bipolar disorder, coronary artery disease status post cardiac stenting 3, BPH, CKD, history of alcohol abuse and a history of lithium toxicity who is admitted to inpatient psychiatric unit under Coleman act due to bizarre behavior stating he wants to be with his . Hospitalist services have been consulted for medical management. 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 Dry eyes Dry mouth - Trial of Claritin for allergies, lubricating eye drops as well - No complaints today Constipation -Lactulose 30ml X1 today - may need to start stool softener DVT prophylaxis -Patient is ambulatory Discussed with nurse. Kurt Gage Nov 13, 2017 11:27
[2017-11-13] MEDS ORDERED: LACTULOSE SYRUP 20 GM/30 ML CUP PO ONE (11:30)
--- NOTE | 2017-11-13 14:24 | PD.TTN ---
Patient Problems 1. Discharge planning 2. Medication compliance 3. Knowledge deficit 4. Lack of coping skills Progress Toward Goals Provider Present: Dr. Mohinder Kirk Provider Input: 11/11/17 patient is manic and in need for med adjustment 11/13/17 patient is improving will offer to sign voluntary Psychiatric Counselors Present: Leslie Weller LCSW Psych Therapist Input: 11/11/17 patient is very intrusive and active and social on unit but open to discuss medications and start on them 11/13/17 patient is improving and appears more in control of his talking and intrusiveness but still overly social at times Group Spec/RT/OT/TAPIA Present: WILLIE Mcmullen Group Spec/RT/OT/TAPIA Input: 11/13/17 participates in groups Leslie Weller LCSW Nov 13, 2017 14:24
[2017-11-13] MEDS: ARTIFICIAL TEARS OPTH SOLN 15 ML BTL EACH EYE PRN ×2 (15:55→21:27)
[2017-11-13 18:02] VITALS: BP 161/82; PULSE 97; RESP 16; TEMP 98.3; O2SAT 98
[2017-11-13] MEDS: DIVALPROEX SODIUM E.R. 500 MG TAB PO SCH (20:23)
[2017-11-13] MEDS: traZODone HCL 50 MG TAB PO SCH (20:24)
[2017-11-14 05:55] VITALS: BP 170/78; PULSE 77; RESP 20; TEMP 97.4; O2SAT 100
[2017-11-14] MEDS: LORATADINE 10 MG TAB PO SCH (08:21)
[2017-11-14] MEDS: VALPROIC ACID 250 MG CAP PO SCH (08:21)
[2017-11-14] MEDS: ASPIRIN 81 MG CHEW TAB CHEW SCH (08:21)
[2017-11-14] MEDS: MULTIVITAMIN TAB PO SCH (08:22)
[2017-11-14 09:24] LABS: BICARBONATE 29.3 MEQ/L (21.0-32.0); CREATININE 1.5 MG/DL (0.60-1.30)
--- NOTE | 2017-11-14 12:02 | HHI.PYPN ---
Subjective Remarks Patient seen in dayroom the floor staff, chart review, patient discussed with nurse. Patient compliant medications. Patient continues somewhat elevated mood though calmer more appropriate with me. She does denies suicidality homicidality voices or visions. For now continue treatment will be getting Depakote blood level tomorrow morning Review of Systems Except as stated in HPI: all other systems reviewed are Neg Mental Status Examination Appearance: Appropriate Consciousness: Alert Orientation: x4 Motor Activity: Normal gait Speech: Unremarkable Language: Adequate Fund of Knowledge: Adequate Attention and Concentration: Other (fair) Memory: Impaired Mood: Other (euthymic to mildly dysphoric) Affect: Other (slight increased range and intensity) Thought Process & Associations: Intact Thought Content: Appropriate Hallucination Type: None Delusion Type: None Suicidal Ideation: Yes (vague) Suicidal Plan: No Suicidal Intention: Yes (vague) Homicidal Ideation: No Homicidal Plan: No Homicidal Intention: No Insight: Fair Judgment: Impulsive Results Labs Test 11/14/17 08:42 Blood Urea Nitrogen 19 MG/DL Creatinine 1.50 MG/DL Random Glucose 155 MG/DL Calcium Level 10.0 MG/DL Sodium Level 140 MEQ/L Potassium Level 3.7 MEQ/L Chloride Level 102 MEQ/L Carbon Dioxide Level 29.3 MEQ/L Anion Gap 9 MEQ/L Estimat Glomerular Filtration Rate 45 ML/MIN Vitals/IOs Vital Signs Date Time Temp Pulse Resp B/P (MAP) Pulse Ox O2 Delivery O2 Flow Rate FiO2 11/14/17 05:55 97.4 77 20 170/78 (108) 100 11/10/17 15:23 Room Air Intake and Output 11/14/17 11/14/17 11/15/17 08:00 16:00 00:00 Intake Total 0 ml 960 ml Balance 0 ml 960 ml Assessment & Plan Problem List: (1) Bipolar disorder ICD Codes: F31.9 - Bipolar disorder, unspecified Status: Chronic Assessment & Plan Estimated LOS: days patient's mood [place] still elevated intense us often somewhat. Continues cooperative no significant behavioral problems. We'll check Depakote blood level over in a.m. Justification for Cont. Inpt. At this time patient will decompensate of placed in a lower level of care Discharge Planning Possible return home Request HC Surrog/Guard Advoc?: No Problem Qualifiers (1) Bipolar disorder: Qualified Codes: F31.62 - Bipolar disorder, current episode mixed, moderate Forrest Kirk MD Nov 14, 2017 12:02
--- NOTE | 2017-11-14 12:26 | HHI.PR ---
Subjective Remarks Follow-up visit for hypertension and chronic kidney disease. Patient seen and examined sitting up in day room. He denies any fevers, chills, nausea, vomiting or diarrhea. He reports moving his bowels 2 times. Discussed with the nurse voices no acute concerns. Objective Vitals Vital Signs Date Time Temp Pulse Resp B/P (MAP) Pulse Ox O2 Delivery O2 Flow Rate FiO2 11/14/17 05:55 97.4 77 20 170/78 (108) 100 11/13/17 18:02 98.3 97 16 161/82 (108) 98 I/O 11/13/17 11/13/17 11/13/17 11/14/17 11/14/17 11/14/17 07:00 15:00 23:00 07:00 15:00 23:00 Intake Total 240 ml 360 ml 1080 ml 240 ml 960 ml Balance 240 ml 360 ml 1080 ml 240 ml 960 ml Intake Oral 240 ml 360 ml 1080 ml 240 ml 960 ml # Voids 3 5 Result Diagram: 11/10/17 1305 11/14/17 0842 Objective Remarks GENERAL: This is a well-nourished, well-developed elderly male patient , in no apparent distress. SKIN: Cool and dry. HEAD: Atraumatic. Normocephalic. EYES: Pupils equal round and reactive. No scleral icterus. No injection or drainage. ENT: Nose without bleeding or purulent drainage. Airway patent. NECK: Trachea midline. CARDIOVASCULAR: Regular rate and rhythm without murmurs, gallops, or rubs. RESPIRATORY: Clear to auscultation. Breath sounds equal bilaterally. No wheezes , rales, or rhonchi. GASTROINTESTINAL: Abdomen soft, non-tender, nondistended. No guarding. MUSCULOSKELETAL: Extremities without clubbing, cyanosis, or edema. No joint tenderness, effusion, or edema noted. NEUROLOGICAL: Awake and alert. Cranial nerves grossly intact. Motor and sensory grossly within normal limits. No focal neurologic finding appreciated. Normal speech. A/P Assessment and Plan 82-year-old male with past medical history significant for hypertension, dyslipidemia, bipolar disorder, coronary artery disease status post cardiac stenting 3, BPH, CKD, history of alcohol abuse and a history of lithium toxicity who is admitted to inpatient psychiatric unit under Coleman act due to bizarre behavior stating he wants to be with his . Hospitalist services have been consulted for medical management. 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 Dry eyes Dry mouth - Trial of Claritin for allergies, lubricating eye drops as well - No complaints today Constipation -resolved DVT prophylaxis -Patient is ambulatory Discussed with nurse. Kurt Gage Nov 14, 2017 12:25
[2017-11-14] MEDS: hydrALAZINE HCL 25 MG TAB PO SCH ×2 (14:00→20:50)
[2017-11-14 14:46] VITALS: BP 149/70; PULSE 83; RESP 19; TEMP 97.6; O2SAT 98
[2017-11-14] MEDS: DIVALPROEX SODIUM E.R. 500 MG TAB PO SCH (20:50)
[2017-11-14] MEDS: traZODone HCL 50 MG TAB PO SCH (20:50)
[2017-11-14] MEDS: ARTIFICIAL TEARS OPTH SOLN 15 ML BTL EACH EYE PRN (21:16)
[2017-11-15] MEDS: hydrALAZINE HCL 25 MG TAB PO SCH ×3 (05:17→21:26)
[2017-11-15 06:15] VITALS: BP 173/76; PULSE 73; RESP 16; TEMP 97.4; O2SAT 98
[2017-11-15] MEDS: VALPROIC ACID 250 MG CAP PO SCH (08:06)
[2017-11-15] MEDS: MULTIVITAMIN TAB PO SCH (08:06)
[2017-11-15] MEDS: LORATADINE 10 MG TAB PO SCH (08:07)
[2017-11-15] MEDS: ASPIRIN 81 MG CHEW TAB CHEW SCH (08:07)
[2017-11-15] MEDS: METOPROLOL TARTRATE 25 MG TAB PO SCH ×2 (08:09→21:00)
[2017-11-15] MEDS: ARTIFICIAL TEARS OPTH SOLN 15 ML BTL EACH EYE PRN ×3 (09:33→18:03)
--- NOTE | 2017-11-15 10:29 | HHI.PYPN ---
Subjective Remarks Patient seen and activities room with nurse Christine, chart review, patient discussed with nurse, patient compliant medication. The patient continues somewhat intense the intensity the invasiveness grandiosity have also diminished. Is more cooperative, at times somewhat confused but overall doing better. Is coping with placement issues. We are pending a Depakote level drawn this morning Review of Systems Except as stated in HPI: all other systems reviewed are Neg Mental Status Examination Appearance: Appropriate Consciousness: Alert Orientation: x4 Motor Activity: Normal gait Speech: Unremarkable Language: Adequate Fund of Knowledge: Adequate Attention and Concentration: Other (fair) Memory: Impaired Mood: Other (euthymic to mildly dysphoric) Affect: Other (slight increased range and intensity) Thought Process & Associations: Intact Thought Content: Appropriate Hallucination Type: None Delusion Type: None Suicidal Ideation: Yes (vague) Suicidal Plan: No Suicidal Intention: Yes (vague) Homicidal Ideation: No Homicidal Plan: No Homicidal Intention: No Insight: Fair Judgment: Impulsive Results Labs Test 11/15/17 09:36 Vitals/IOs Vital Signs Date Time Temp Pulse Resp B/P (MAP) Pulse Ox O2 Delivery O2 Flow Rate FiO2 11/15/17 06:15 97.4 73 16 173/76 (108) 98 Intake and Output 11/15/17 11/15/17 11/16/17 08:00 16:00 00:00 Intake Total 480 ml Balance 480 ml Assessment & Plan Problem List: (1) Bipolar disorder ICD Codes: F31.9 - Bipolar disorder, unspecified Status: Chronic Assessment & Plan Estimated LOS: days patient mood is calming is less invasiveness and intrusiveness, compliant medications. He does denies suicidality voices or visions. We are awaiting results of Depakote blood level drawn this a.m. Justification for Cont. Inpt. At this time patient would decompensated placed in a lower level of care Discharge Planning To be determined Request HC Surrog/Guard Advoc?: No Problem Qualifiers (1) Bipolar disorder: Qualified Codes: F31.62 - Bipolar disorder, current episode mixed, moderate Forrest Kirk MD Nov 15, 2017 10:29
--- NOTE | 2017-11-15 14:23 | HHI.PR ---
Subjective Remarks Follow-up visit for hypertension. Patient seen and examined in the day room watching television. He denies any fevers, chills, nausea, vomiting, diarrhea or headache. Reports no acute concerns or complaints today. Objective Vitals Vital Signs Date Time Temp Pulse Resp B/P (MAP) Pulse Ox O2 Delivery O2 Flow Rate FiO2 11/15/17 06:15 97.4 73 16 173/76 (108) 98 11/14/17 14:46 97.6 83 19 149/70 (96) 98 I/O 11/14/17 11/14/17 11/14/17 11/15/17 11/15/17 11/15/17 07:00 15:00 23:00 07:00 15:00 23:00 Intake Total 240 ml 960 ml 120 ml 840 ml 600 ml Balance 240 ml 960 ml 120 ml 840 ml 600 ml Intake Oral 240 ml 960 ml 120 ml 840 ml 600 ml # Voids 5 4 Result Diagram: 11/14/17 0842 Objective Remarks GENERAL: This is a well-nourished, well-developed elderly male patient , in no apparent distress. SKIN: Cool and dry. HEAD: Atraumatic. Normocephalic. EYES: Pupils equal round and reactive. No scleral icterus. No injection or drainage. ENT: Nose without bleeding or purulent drainage. Airway patent. NECK: Trachea midline. CARDIOVASCULAR: Regular rate and rhythm without murmurs, gallops, or rubs. RESPIRATORY: Clear to auscultation. Breath sounds equal bilaterally. No wheezes , rales, or rhonchi. GASTROINTESTINAL: Abdomen soft, non-tender, nondistended. No guarding. MUSCULOSKELETAL: Extremities without clubbing, cyanosis, or edema. No joint tenderness, effusion, or edema noted. NEUROLOGICAL: Awake and alert. Cranial nerves grossly intact. Motor and sensory grossly within normal limits. No focal neurologic finding appreciated. Normal speech. A/P Assessment and Plan 82-year-old male with past medical history significant for hypertension, dyslipidemia, bipolar disorder, coronary artery disease status post cardiac stenting 3, BPH, CKD, history of alcohol abuse and a history of lithium toxicity who is admitted to inpatient psychiatric unit under [facility] act due to bizarre behavior stating he wants to be with his . Hospitalist services have been consulted for medical management. 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 -Management per psychiatric team -UDS negative Hypertension, mildly elevated -Continue amlodipine to 10 mg daily and hydralazine 25 mg every 8 hours -BP continues to be elevated, will add Lopressor 12.5 mg twice daily -clonidine prn with parameters - [place] BP would be <140/90 due to his CKD -Monitor BP and adjust treatment accordingly CAD s/p cardiac stents x 3 -Patient has no cardiac complaints at this time -Continue aspirin 81 mg daily CKD -Creatinine baseline since end 2015 is around 1.5 - BMP reviewed, creatinine 1.5, improved -Avoid nephrotoxic agents -continue to encourage PO fluids,monitor renal function tomorrow. Dry eyes Dry mouth - Trial of Claritin for allergies, lubricating eye drops as well - No complaints today Constipation -resolved DVT prophylaxis -Patient is ambulatory Discussed with nurse. Kurt Gage Nov 15, 2017 14:23
[2017-11-15 17:52] VITALS: BP 118/56; PULSE 75; RESP 18; TEMP 97.5; O2SAT 98
[2017-11-15 21:26] VITALS: BP 101/59
[2017-11-15] MEDS: DIVALPROEX SODIUM E.R. 500 MG TAB PO SCH (21:30)
[2017-11-15] MEDS: traZODone HCL 50 MG TAB PO SCH (21:30)
[2017-11-15] MEDS: ACETAMINOPHEN 325 MG TAB PO PRN (21:35)
[2017-11-16 06:01] VITALS: BP 156/72; PULSE 66; RESP 17; TEMP 97.8; O2SAT 99
[2017-11-16] MEDS: hydrALAZINE HCL 25 MG TAB PO SCH ×3 (06:28→20:52)
[2017-11-16] MEDS: LORATADINE 10 MG TAB PO SCH (08:27)
[2017-11-16] MEDS: METOPROLOL TARTRATE 25 MG TAB PO SCH ×2 (08:27→20:27)
[2017-11-16] MEDS: ASPIRIN 81 MG CHEW TAB CHEW SCH (08:27)
[2017-11-16] MEDS: MULTIVITAMIN TAB PO SCH (08:27)
[2017-11-16] MEDS: VALPROIC ACID 250 MG CAP PO SCH (08:27)
--- NOTE | 2017-11-16 10:57 | HHI.PR ---
Subjective Remarks Follow-up visit for hypertension. Patient seen and examined ambulating the dangelo , denies any headaches, dizziness, fevers, chills, nausea, vomiting, diarrhea, cough or shortness of breath. Overall reports feeling well, continues to complain of dry eyes. He reports that he used [id number] eyedrops at home for dry eyes, however after he found out that they were meeting [place] stop using these. He reports that he follows up with an dispatch clerk as outpatient. He denies any visual changes. Objective Vitals Vital Signs Date Time Temp Pulse Resp B/P (MAP) Pulse Ox O2 Delivery O2 Flow Rate FiO2 11/16/17 06:01 97.8 66 17 156/72 (100) 99 11/15/17 21:26 101/59 (73) 11/15/17 17:52 97.5 75 18 118/56 (76) 98 I/O 11/15/17 11/15/17 11/15/17 11/16/17 11/16/17 11/16/17 07:00 15:00 23:00 07:00 15:00 23:00 Intake Total 840 ml 1200 ml 240 ml 0 ml 120 ml Balance 840 ml 1200 ml 240 ml 0 ml 120 ml Intake Oral 840 ml 1200 ml 240 ml 0 ml 120 ml # Voids 4 2 2 Result Diagram: 11/14/17 0842 Objective Remarks GENERAL: This is a well-nourished, well-developed elderly male patient , in no apparent distress. SKIN: Cool and dry. HEAD: Atraumatic. Normocephalic. EYES: Pupils equal round and reactive. No scleral icterus. No injection, drainage, or eye crusting noted. ENT: Nose without bleeding or purulent drainage. Airway patent. NECK: Trachea midline. CARDIOVASCULAR: Regular rate and rhythm without murmurs, gallops, or rubs. RESPIRATORY: Clear to auscultation. Breath sounds equal bilaterally. No wheezes , rales, or rhonchi. GASTROINTESTINAL: Abdomen soft, non-tender, nondistended. No guarding. MUSCULOSKELETAL: Extremities without clubbing, cyanosis, or edema. No joint tenderness, effusion, or edema noted. NEUROLOGICAL: Awake and alert. Cranial nerves grossly intact. Motor and sensory grossly within normal limits. No focal neurologic finding appreciated. Normal speech. A/P Assessment and Plan 82-year-old male with past medical history significant for hypertension, dyslipidemia, bipolar disorder, coronary artery disease status post cardiac stenting 3, BPH, CKD, history of alcohol abuse and a history of lithium toxicity who is admitted to inpatient psychiatric unit under [facility] act due to bizarre behavior stating he wants to be with his . Hospitalist services have been consulted for medical management. 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 -clonidine prn with parameters - [place] BP would be <140/90 due to his CKD CAD s/p cardiac stents x 3 -Patient has no cardiac complaints at this time -Continue aspirin 81 mg daily CKD -Creatinine baseline since end 2015 is around 1.5 - BMP reviewed, creatinine 1.5, improved -Avoid nephrotoxic agents -Continue to encourage oral hydration Dry eyes Dry mouth -Continue Claritin for allergies and lubricating eye drops as needed, patient can follow-up with dispatch clerk once discharged. Constipation -resolved DVT prophylaxis -Patient is ambulatory Discussed with nurse. [facility] will sign off, please reconsult if needed. Kurt Gage Nov 16, 2017 10:57
--- NOTE | 2017-11-16 12:05 | HHI.PYPN ---
Subjective Remarks Pt seen and discussed with staff. Pt has been compliant with medications and care. He remains hypomanic and impulsvie. Thought process is improving but remains loose and tangential. Less grandiose today. No SI/HI Mental Status Examination Appearance: Appropriate Consciousness: Alert Orientation: x4 Motor Activity: Normal gait Speech: Unremarkable Language: Adequate Fund of Knowledge: Adequate Attention and Concentration: Other (fair) Memory: Impaired Mood: Other (hypomanic) Affect: Other (expansive) Thought Process & Associations: Tangential Thought Content: Other (mild grandiosity) Hallucination Type: None Delusion Type: None Suicidal Ideation: No Suicidal Plan: No Suicidal Intention: No Homicidal Ideation: No Homicidal Plan: No Homicidal Intention: No Insight: Fair Judgment: Impulsive Results Vitals/IOs Vital Signs Date Time Temp Pulse Resp B/P (MAP) Pulse Ox O2 Delivery O2 Flow Rate FiO2 11/16/17 06:01 97.8 66 17 156/72 (100) 99 Intake and Output 11/16/17 11/16/17 11/17/17 08:00 16:00 00:00 Intake Total 120 ml 240 ml Balance 120 ml 240 ml Assessment & Plan Problem List: (1) Bipolar disorder ICD Codes: F31.9 - Bipolar disorder, unspecified Status: Chronic Assessment & Plan Continue current tx plan. Estimated LOS: days Justification for Cont. Inpt. impairments in reality testing and social functioning. Request HC Surrog/Guard Advoc?: No Problem Qualifiers (1) Bipolar disorder: Qualified Codes: F31.62 - Bipolar disorder, current episode mixed, moderate Kayla Hartley MD Nov 16, 2017 12:05
[2017-11-16 13:35] VITALS: BP 130/60; PULSE 84
[2017-11-16] MEDS: ARTIFICIAL TEARS OPTH SOLN 15 ML BTL EACH EYE PRN (13:35)
[2017-11-16 17:59] VITALS: BP 130/71; PULSE 97; RESP 20; TEMP 97.9; O2SAT 96
[2017-11-16] MEDS: traZODone HCL 50 MG TAB PO SCH (20:29)
[2017-11-16] MEDS: DIVALPROEX SODIUM E.R. 500 MG TAB PO SCH (20:29)
[2017-11-17] MEDS: diphenhydrAMINE HCL 50 MG CAP PO PRN ×2 (01:10→20:17)
[2017-11-17] MEDS: hydrALAZINE HCL 25 MG TAB PO SCH ×3 (05:08→20:17)
[2017-11-17 05:57] VITALS: BP 133/68; PULSE 75; RESP 17; TEMP 98.4; O2SAT 97
[2017-11-17] MEDS: MULTIVITAMIN TAB PO SCH (08:11)
[2017-11-17] MEDS: METOPROLOL TARTRATE 25 MG TAB PO SCH ×2 (08:11→20:17)
[2017-11-17] MEDS: ASPIRIN 81 MG CHEW TAB CHEW SCH (08:11)
[2017-11-17] MEDS: LORATADINE 10 MG TAB PO SCH (08:11)
[2017-11-17] MEDS: VALPROIC ACID 250 MG CAP PO SCH (08:11)
--- NOTE | 2017-11-17 12:53 | HHI.PYPN ---
Subjective Remarks Pt seen and discussed with staff. Pt remains hypomanic and tangential in thought process. He is compliant with medications and denies side effects. No delusional statements today. No SI/HI Mental Status Examination Appearance: Appropriate Consciousness: Alert Orientation: x4 Motor Activity: Normal gait Speech: Unremarkable Language: Adequate Fund of Knowledge: Adequate Attention and Concentration: Other (fair) Memory: Impaired Mood: Other (hypomanic) Affect: Other (expansive) Thought Process & Associations: Tangential Thought Content: Other (mild grandiosity) Hallucination Type: None Delusion Type: None Suicidal Ideation: No Suicidal Plan: No Suicidal Intention: No Homicidal Ideation: No Homicidal Plan: No Homicidal Intention: No Insight: Fair Judgment: Impulsive Results Vitals/IOs Vital Signs Date Time Temp Pulse Resp B/P (MAP) Pulse Ox O2 Delivery O2 Flow Rate FiO2 11/17/17 05:57 98.4 75 17 133/68 (89) 97 Intake and Output 11/17/17 11/17/17 11/18/17 08:00 16:00 00:00 Intake Total 240 ml Balance 240 ml Assessment & Plan Problem List: (1) Bipolar disorder ICD Codes: F31.9 - Bipolar disorder, unspecified Status: Chronic Assessment & Plan Pt improving. Continue current tx plan. Estimated LOS: days Justification for Cont. Inpt. risk of decompensation Request HC Surrog/Guard Advoc?: No Problem Qualifiers (1) Bipolar disorder: Qualified Codes: F31.62 - Bipolar disorder, current episode mixed, moderate Kayla Hartley MD Nov 17, 2017 12:52
[2017-11-17 17:41] VITALS: BP 145/64; PULSE 82; RESP 18; TEMP 97.2; O2SAT 98
[2017-11-17 18:00] VITALS: BP 145/64; PULSE 82; RESP 18; TEMP 97.2; O2SAT 98
[2017-11-17] MEDS: traZODone HCL 50 MG TAB PO SCH (20:17)
[2017-11-17] MEDS: DIVALPROEX SODIUM E.R. 500 MG TAB PO SCH (20:17)
[2017-11-18] MEDS: hydrALAZINE HCL 25 MG TAB PO SCH ×3 (06:02→20:50)
[2017-11-18 06:36] VITALS: BP 133/61; PULSE 69; RESP 15; TEMP 97.4; O2SAT 99
--- NOTE | 2017-11-18 09:15 | PD.TTN ---
Patient Problems 1. Discharge planning 2. Medication compliance 3. Knowledge deficit 4. Lack of coping skills Progress Toward Goals Provider Present: Dr. Mohinder Kirk Provider Input: 11/11/17 patient is manic and in need for med adjustment 11/13/17 patient is improving will offer to sign voluntary 11/18/17 Will meet with pt. Possible med adjustment Psychiatric Counselors Present: Leslie Weller LCSW Psych Therapist Input: 11/11/17 patient is very intrusive and active and social on unit but open to discuss medications and start on them 11/13/17 patient is improving and appears more in control of his talking and intrusiveness but still overly social at times Group Spec/RT/OT/TAPIA Present: WILLIE Mcmullen Andrew Harrison, OT Group Spec/RT/OT/TAPIA Input: 11/13/17 participates in groups 10/21/17 Attends select groups. Intrusive, agitated with staff and pts Ada Ramirez/Mahnaz Nov 18, 2017 09:15
[2017-11-18] MEDS: VALPROIC ACID 250 MG CAP PO SCH (10:11)
[2017-11-18] MEDS: METOPROLOL TARTRATE 25 MG TAB PO SCH ×2 (10:11→20:29)
[2017-11-18] MEDS: MULTIVITAMIN TAB PO SCH (10:11)
[2017-11-18] MEDS: ASPIRIN 81 MG CHEW TAB CHEW SCH (10:11)
[2017-11-18] MEDS: LORATADINE 10 MG TAB PO SCH (10:11)
--- NOTE | 2017-11-18 12:33 | HHI.PYPN ---
Subjective Remarks Patient is seen in day room with nurse Oden, chart reviewed, patient compliant medication. Patient discussed with nurse. Patient will continues to soften, he still remains at times somewhat intrusive but overall no behavioral problems. Depakote level of 11/15 is 41 2:50 AM 500 at bedtime. Will increase Depakote to 500 mg twice a day and get a blood level on 11/22 Review of Systems Except as stated in HPI: all other systems reviewed are Neg Mental Status Examination Appearance: Appropriate Consciousness: Alert Orientation: x4 Motor Activity: Normal gait Speech: Unremarkable Language: Adequate Fund of Knowledge: Adequate Attention and Concentration: Other (fair) Memory: Impaired Mood: Other (hypomanic) Affect: Other (expansive) Thought Process & Associations: Tangential Thought Content: Other (mild grandiosity) Hallucination Type: None Delusion Type: None Suicidal Ideation: No Suicidal Plan: No Suicidal Intention: No Homicidal Ideation: No Homicidal Plan: No Homicidal Intention: No Insight: Fair Judgment: Impulsive Results Vitals/IOs Vital Signs Date Time Temp Pulse Resp B/P (MAP) Pulse Ox O2 Delivery O2 Flow Rate FiO2 11/18/17 06:36 97.4 69 15 133/61 (85) 99 Intake and Output 11/18/17 11/18/17 11/19/17 08:00 16:00 00:00 Intake Total 560 ml Balance 560 ml Assessment & Plan Problem List: (1) Bipolar disorder ICD Codes: F31.9 - Bipolar disorder, unspecified Status: Chronic Assessment & Plan Estimated LOS: days patient mood is slowly resolving, is less intrusive less irritable. She medication adjustment above Justification for Cont. Inpt. At this time patient decompensate to place to the lower level of care Discharge Planning Placement still needs to be determined Request HC Surrog/Guard Advoc?: No Problem Qualifiers (1) Bipolar disorder: Qualified Codes: F31.62 - Bipolar disorder, current episode mixed, moderate Forrest Kirk MD Nov 18, 2017 12:33
[2017-11-18 18:03] VITALS: BP 132/62; PULSE 83; RESP 18; TEMP 98; O2SAT 95
[2017-11-18] MEDS: DIVALPROEX SODIUM E.R. 500 MG TAB PO SCH (20:29)
[2017-11-18] MEDS: traZODone HCL 50 MG TAB PO SCH (20:29)
[2017-11-18 21:00] VITALS: BP 144/63; PULSE 94; TEMP 97.8
[2017-11-19] MEDS: hydrALAZINE HCL 25 MG TAB PO SCH ×3 (05:51→21:05)
[2017-11-19 05:56] VITALS: BP 134/63; PULSE 84; RESP 18; TEMP 97.3; O2SAT 98
[2017-11-19] MEDS: LORATADINE 10 MG TAB PO SCH (09:34)
[2017-11-19] MEDS: ASPIRIN 81 MG CHEW TAB CHEW SCH (09:34)
[2017-11-19] MEDS: MULTIVITAMIN TAB PO SCH (09:34)
[2017-11-19] MEDS: DIVALPROEX SODIUM E.R. 500 MG TAB PO SCH ×2 (09:34→21:04)
[2017-11-19] MEDS: METOPROLOL TARTRATE 25 MG TAB PO SCH ×2 (09:35→21:05)
--- NOTE | 2017-11-19 11:50 | HHI.PYPN ---
Subjective Remarks Met with patient's son and [id number] in counseling [place], discussed patient's diagnosis behaviors medications and discharge plans and recommendation for placement patient son feels that he still showing some behaviors that are bothersome and worrisome in the evening. We all agree that he does need a structured environment such as perhaps an [facility]. Patient seen on the unit with nurse Jus and counselor jose chart reviewed patient compliant medications patient discussed with nurse. Patient is tolerating his Depakote without problems, we have Depakote level scheduled for 11/22 we also set a goal for this patient to be placed in and [facility] by the end of the week at this time patient appears willing to accept those parameters Review of Systems Except as stated in HPI: all other systems reviewed are Neg Mental Status Examination Appearance: Appropriate Consciousness: Alert Orientation: x4 Motor Activity: Normal gait Speech: Unremarkable Language: Adequate Fund of Knowledge: Adequate Attention and Concentration: Other (fair) Memory: Impaired Mood: Other (hypomanic) Affect: Other (expansive) Thought Process & Associations: Tangential Thought Content: Other (mild grandiosity) Hallucination Type: None Delusion Type: None Suicidal Ideation: No Suicidal Plan: No Suicidal Intention: No Homicidal Ideation: No Homicidal Plan: No Homicidal Intention: No Insight: Fair Judgment: Impulsive Results Vitals/IOs Vital Signs Date Time Temp Pulse Resp B/P (MAP) Pulse Ox O2 Delivery O2 Flow Rate FiO2 11/19/17 05:56 97.3 84 18 134/63 (86) 98 Intake and Output 11/19/17 11/19/17 11/20/17 08:00 16:00 00:00 Intake Total 600 ml Balance 600 ml Assessment & Plan Problem List: (1) Bipolar disorder ICD Codes: F31.9 - Bipolar disorder, unspecified Status: Chronic Assessment & Plan Estimated LOS: days patient remains somewhat manic intrusive, it appears he may be showing some mild sundowning behaviors also that the family is noticing. We'll continue medication Justification for Cont. Inpt. At this time patient will decompensate placed in a lower level of care Discharge Planning Anticipated discharge on Saturday local [facility] Request HC Surrog/Guard Advoc?: No Problem Qualifiers (1) Bipolar disorder: Qualified Codes: F31.62 - Bipolar disorder, current episode mixed, moderate Forrest Kirk MD Nov 19, 2017 11:50
[2017-11-19 13:33] VITALS: BP 128/61; PULSE 75; RESP 18; TEMP 98.4; O2SAT 99
[2017-11-19 18:01] VITALS: BP 143/66; PULSE 72; RESP 18; TEMP 98.2; O2SAT 100
[2017-11-19] MEDS: traZODone HCL 50 MG TAB PO SCH (21:05)
[2017-11-19] MEDS: ACETAMINOPHEN 325 MG TAB PO PRN (21:08)
[2017-11-20 05:56] VITALS: BP 143/66; PULSE 72; RESP 17; TEMP 97.4; O2SAT 97
[2017-11-20] MEDS: hydrALAZINE HCL 25 MG TAB PO SCH ×3 (06:10→22:19)
[2017-11-20] MEDS: METOPROLOL TARTRATE 25 MG TAB PO SCH ×2 (08:38→20:26)
[2017-11-20] MEDS: MULTIVITAMIN TAB PO SCH (08:38)
[2017-11-20] MEDS: LORATADINE 10 MG TAB PO SCH (08:38)
[2017-11-20] MEDS: ASPIRIN 81 MG CHEW TAB CHEW SCH (08:38)
[2017-11-20] MEDS: DIVALPROEX SODIUM E.R. 500 MG TAB PO SCH ×2 (08:38→20:26)
--- NOTE | 2017-11-20 12:28 | HHI.PYPN ---
Subjective Remarks Reviewed electronic medical record, labs, discuss case with staff. Patient was evaluated in his room with no RN present. His mood is good his affect is euthymic. He reports that he slept well last night and has had a good appetite. He denies any thoughts of self-harm, harming others, auditory or visual hallucinations. He states that he was seen and evaluated by representatives from two facilities today. Staff advised he may be accepted to one of the facilities. Patient has no physical complaints at this time. Mental Status Examination Appearance: Appropriate Consciousness: Alert Orientation: x4 Motor Activity: Normal gait Speech: Unremarkable Language: Adequate Fund of Knowledge: Adequate Attention and Concentration: Other (fair) Memory: Impaired Mood: Other (hypomanic) Affect: Other (expansive) Thought Process & Associations: Tangential Thought Content: Other (mild grandiosity) Hallucination Type: None Delusion Type: None Suicidal Ideation: No Suicidal Plan: No Suicidal Intention: No Homicidal Ideation: No Homicidal Plan: No Homicidal Intention: No Insight: Fair Judgment: Impulsive Results Vitals/IOs Vital Signs Date Time Temp Pulse Resp B/P (MAP) Pulse Ox O2 Delivery O2 Flow Rate FiO2 11/20/17 05:56 97.4 72 17 143/66 (91) 97 Assessment & Plan Problem List: (1) Bipolar disorder ICD Codes: F31.9 - Bipolar disorder, unspecified Status: Chronic Assessment & Plan Estimated LOS: We will continue with current treatment plan to stabilize patient via medications. Representatives from facilities have been into see how to find a safe placement and discharge plan. Justification for Cont. Inpt. Moving this patient to a lower level of care with result in decompensation. Request HC Surrog/Guard Advoc?: No Problem Qualifiers (1) Bipolar disorder: Qualified Codes: F31.62 - Bipolar disorder, current episode mixed, moderate Mica Joseph Nov 20, 2017 12:28
[2017-11-20 18:00] VITALS: BP 136/64; PULSE 86; RESP 16; TEMP 97.9; O2SAT 96
[2017-11-20] MEDS: traZODone HCL 50 MG TAB PO SCH (20:26)
[2017-11-20] MEDS: ACETAMINOPHEN 325 MG TAB PO PRN (20:27)
[2017-11-21 05:54] VITALS: BP 137/64; PULSE 79; RESP 16; TEMP 97.9; O2SAT 99
[2017-11-21] MEDS: hydrALAZINE HCL 25 MG TAB PO SCH ×3 (05:56→21:06)
[2017-11-21] MEDS: ASPIRIN 81 MG CHEW TAB CHEW SCH (09:29)
[2017-11-21] MEDS: METOPROLOL TARTRATE 25 MG TAB PO SCH ×2 (09:29→21:05)
[2017-11-21] MEDS: MULTIVITAMIN TAB PO SCH (09:29)
[2017-11-21] MEDS: DIVALPROEX SODIUM E.R. 500 MG TAB PO SCH ×2 (09:29→21:06)
[2017-11-21] MEDS: LORATADINE 10 MG TAB PO SCH (09:30)
--- NOTE | 2017-11-21 14:11 | HHI.PYPN ---
Subjective Remarks Reviewed electronic medical record and discussed case with staff. Per staff, patient has been pleasant and compliant with medications. Patient denies any complaints today. He is alert, oriented. Mood is good and affect is euthymic. Awaiting placement. Mental Status Examination Appearance: Appropriate Consciousness: Alert Orientation: x4 Motor Activity: Normal gait Speech: Unremarkable Language: Adequate Fund of Knowledge: Adequate Attention and Concentration: Other (fair) Memory: Impaired Mood: Other (hypomanic) Affect: Other (expansive) Thought Process & Associations: Tangential Thought Content: Other (mild grandiosity) Hallucination Type: None Delusion Type: None Suicidal Ideation: No Suicidal Plan: No Suicidal Intention: No Homicidal Ideation: No Homicidal Plan: No Homicidal Intention: No Insight: Fair Judgment: Impulsive Results Vitals/IOs Vital Signs Date Time Temp Pulse Resp B/P (MAP) Pulse Ox O2 Delivery O2 Flow Rate FiO2 11/21/17 05:54 97.9 79 16 137/64 (88) 99 Intake and Output 11/21/17 11/21/17 11/22/17 08:00 16:00 00:00 Intake Total 240 ml 360 ml Balance 240 ml 360 ml Assessment & Plan Problem List: (1) Bipolar disorder ICD Codes: F31.9 - Bipolar disorder, unspecified Status: Chronic Assessment & Plan Estimated LOS: Patient has met with representatives from several facilities. Awaiting news of appropriate placement. Justification for Cont. Inpt. Moving this patient to a lower level of care would result in decompensation. Request HC Surrog/Guard Advoc?: No Problem Qualifiers (1) Bipolar disorder: Qualified Codes: F31.62 - Bipolar disorder, current episode mixed, moderate Mica Joseph Nov 21, 2017 14:11
[2017-11-21 16:32] VITALS: BP 151/69; PULSE 75; RESP 17; TEMP 98.3; O2SAT 99
[2017-11-21] MEDS: traZODone HCL 50 MG TAB PO SCH (21:06)
[2017-11-22] MEDS: hydrALAZINE HCL 25 MG TAB PO SCH (05:13)
[2017-11-22 05:49] VITALS: BP 133/64; PULSE 65; RESP 18; TEMP 98.2; O2SAT 100
[2017-11-22] MEDS: MULTIVITAMIN TAB PO SCH (08:42)
[2017-11-22] MEDS: DIVALPROEX SODIUM E.R. 500 MG TAB PO SCH (08:42)
[2017-11-22] MEDS: LORATADINE 10 MG TAB PO SCH (08:42)
[2017-11-22] MEDS: ASPIRIN 81 MG CHEW TAB CHEW SCH (08:43)
[2017-11-22] MEDS: METOPROLOL TARTRATE 25 MG TAB PO SCH (08:43)
--- NOTE | 2017-11-22 12:17 | HHI.DS ---
Psychiatry Discharge Summary Inpatient Psychiatric care?: Yes Advance Directive: No Reason Not Provided: Information provided to patient Mental Health AdvanceDirective: No Health Care Proxy: No Admission Admission Date Nov 10, 2017 at 14:31 Admission Diagnosis: (1) Bipolar disorder ICD Code: F31.9 - Bipolar disorder, unspecified Brief History Patient is an 82-year-old white male who comes here under [facility] act signed by Jorge A Irving M.D. dated November 10 at 1435 hrs. to document reviewed and essentially is stating subtherapeutic Depakote bizarre behavior of inhibition stating he wants to be with his . Patient seen screened in the ED urine toxicology negative, blood alcohol level negative, serum Depakote level XLV. Of interest patient was recently hospitalized here for lithium toxicity. He has been diagnosed bipolar disorder for many years, from the mid 1960s, has been him lithium for that period of time with good results. Until he became little toxic. The lithium was discontinued he was placed on Depakote 250 mg daily. This is led to some increased bizarre behaviors. Says he lives by himself with pet cat in the trailer. He becomes somewhat tearful when speaking of his . He denies voices or visions with this. Denies any active suicidal intent or plan. But he does realize she is spiraling somewhat out of control right now he is vague about racing thoughts though his speech is rapid and pressured. He is somewhat grandiose and labile with poor attention and concentration. He denies any alcohol or drug use related to this. He denies any physical or sexual abuse. States is dense vague mental health issues in his family of origin. At this time patient does meet criteria for acute inpatient psychiatric hospitalization on the act I'll do first opinion request second opinion. I feel he has capacity to sign for medications we'll continue his medications per the med reconciliation. Will recheck patient 's Depakote level in 2 days. Hopeless can be a fairly short stay and return to us on perhaps with some home health care will also the hospitalist consult with us The patient is a 82 years old man, domiciled alone in [facility], retired , single, with psychiatric history of bipolar disorder, multiple psychiatric hospitalizations, brought to the hospital on the act because the patient has been reportedly noncompliant with medications, endorsing suicidal ideation, and displaying manic behavior. Patient was consulted to me for second opinion. On psychiatric evaluation today the patient is talkative, with rapid speech, at times disorganized, making bizarre statements. He reports good mood, good level of energy, he has an elevated affect and mood, denies suicidal or homicidal ideation, he denies visual and auditory hallucinations. Patient is fully oriented 3, good attention span, no gross cognitive impairment present. Tobacco Use In Past 30 Days: No Tobacco Past 30 Days Alcohol Use: Never Hospital Course Patient was admitted to locked psychiatric inpatient unit. Safety precautions were in place throughout his stay. Patient was seen and assessed by a psychiatric provider daily and followed by counselor as well. Patient has shown improvement over the course of his visit. He is alert and oriented. His speech is clear, logical, and organized. His thought process is linear. There is no apparent internal stimulation. His mood is good and his affect is euthymic. Patient reports that he "feels better". Discussions with patient about placement in assisted living facilities have been positive overall. His medication was titrated and he has responded well. No side effects have been reported. This patient has reached the maximum benefit from an inpatient admission, and no longer meets inpatient criteria. A safe placement and discharge have been arranged. He will be discharged to [facility] with a week's prescriptions and instructions to return if his condition should worsen. Results Blood Pressure 133 / 64 Vital Signs Date Time Temp Pulse Resp B/P (MAP) Pulse Ox O2 Delivery O2 Flow Rate FiO2 11/22/17 05:49 98.2 65 18 133/64 (87) 100 Laboratory Tests Test 11/22/17 10:45 Laboratory Results Test 11/11/17 18:06 11/22/17 10:45 Cholesterol Level 158 MG/DL (120-200) HDL Cholesterol 32.4 MG/DL (40.0-60.0) Hemoglobin A1c 5.3 % (4.3-6.0) LDL Cholesterol 94 MG/DL (0-99) Triglycerides Level 158 MG/DL (42-150) Valproic Acid (Depakene) Level 60 MCG/ML (50-100) Summary of Procedures None Pending results at discharge: No Medications # of Antipsychotic meds at D/C: 0 Approp Antipsych med options 1 - Minimum of three failed multiple trials of monotherapy. 2 - Documented plan to taper to monotherapy due to previous use of multiple meds OR cross-taper in progress at D/C. 3 - Documentation of augmentation of Clozapine. 4 - Justification other than those listed in allowable values 1-3, document here : Discharge Discharge Date: Nov 22, 2017 Discharge Diagnosis: (1) Bipolar disorder Diagnosis: Principal ICD Code: F31.9 - Bipolar disorder, unspecified Status: Chronic Pt Condition on Discharge: Stable Discharge Disposition: [facility] Discharge Instructions Diet Instructions: As Tolerated, No Restrictions Activities you can perform: Regular-No Restrictions Scheduled Appointment: At [facility] Discharge Time > 30 minutes Mental Status Examination Appearance: Appropriate Consciousness: Alert Orientation: x4 Motor Activity: Normal gait Speech: Unremarkable Language: Adequate Fund of Knowledge: Adequate Attention and Concentration: Other (fair) Memory: Impaired Mood: Other (hypomanic) Affect: Other (expansive) Thought Process & Associations: Tangential Thought Content: Other (mild grandiosity) Hallucination Type: None Delusion Type: None Suicidal Ideation: No Suicidal Plan: No Suicidal Intention: No Homicidal Ideation: No Homicidal Plan: No Homicidal Intention: No Insight: Fair Judgment: Impulsive Discharge/Advance Care Plan Health Problems: (1) Bipolar disorder Goals to promote your health * To prevent worsening of your condition and complications * To maintain your health at the optimal level Directions to meet your goals Take your medications as prescribed Follow your dietary instruction Follow activity as directed Keep your appointments as scheduled Take your immunizations and boosters as scheduled If your symptoms worsen call your PCP, if no PCP go to Urgent Care Center or Emergency Room For 18/03 questions related to your inpatient stay or results of tests pending at discharge, please contact Dr. Mica Joseph at Smoking is Dangerous to Your Health. Avoid second hand smoking Problem Qualifiers (1) Bipolar disorder: Qualified Codes: F31.62 - Bipolar disorder, current episode mixed, moderate Mica Joseph Nov 22, 2017 12:17
[2017-11-22] MEDS ORDERED: VALP250 PO (12:20)
[2017-11-22] MEDS ORDERED: DEPA500T3 PO (12:20)
[2017-11-22] MEDS ORDERED: TRAZ50TA12 PO (12:20)
== END 2017-11-22 13:20 | DRG 885 ==
LOC: NEPE 12:14 → NEDA 14:31 → H250 16:05 → H260 11-19 10:40
PROVIDERS: ADMIT Psychiatry & Neurology Psychiatry; ATTEND Psychiatry & Neurology Psychiatry
DX: F31.62 Bipolar disorder, current episode mixed, moderate (principal); R00.0 Tachycardia, unspecified; R45.851 Suicidal ideations; E78.5 Hyperlipidemia, unspecified; I12.9 Hypertensive chronic kidney disease with stage 1 through stage 4 chronic kidney disease, or unspecified chronic kidney disease; R25.1 Tremor, unspecified; Z95.5 Presence of coronary angioplasty implant and graft; M19.90 Unspecified osteoarthritis, unspecified site; I25.10 Atherosclerotic heart disease of native coronary artery without angina pectoris; N40.0 Benign prostatic hyperplasia without lower urinary tract symptoms; N18.9 Chronic kidney disease, unspecified; H04.123 Dry eye syndrome of bilateral lacrimal glands; R68.2 Dry mouth, unspecified; Z79.899 Other long term (current) drug therapy; Z87.891 Personal history of nicotine dependence; Z87.820 Personal history of traumatic brain injury; Z79.82 Long term (current) use of aspirin; K59.00 Constipation, unspecified; Z91.14 Patient's other noncompliance with medication regimen
CPT/HCPCS: 80048; 80053; 80061; 80164; 80307; 81001; 83036; 84443; 85025; 93005; Q0163